=== PATIENT | male | born 1990 | race African-American/Black ===

== ENCOUNTER 2017-01-22 11:47 | Emergency (ER) | payer OTHER ==
[2017-01-22] MEDS ORDERED: OXYCODONE-ACETAMINOPHEN 5-325 MG TABLET PO ONE (12:03)
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
[2017-01-22 13:18] VITALS: BP 150/105
== END 2017-01-22 13:19 | disposition home or self-care (01) ==
LOC: ER 11:47
DX: S39.012A Strain of muscle, fascia and tendon of lower back, initial encounter (principal); V87.7XXA Person injured in collision between other specified motor vehicles (traffic), initial encounter; I10 Essential (primary) hypertension; F17.200 Nicotine dependence, unspecified, uncomplicated; E78.00 Pure hypercholesterolemia, unspecified; I11.0 Hypertensive heart disease with heart failure; J45.909 Unspecified asthma, uncomplicated
CPT/HCPCS: 72070; 72110; 99283

== ENCOUNTER 2017-04-09 17:39 | Emergency (ER) | payer OTHER ==
--- NOTE | 2017-04-09 18:11 | ER Document Report ---
ED Medical Screen (RME) - General Chief Complaint: Chest Pain Stated Complaint: CHEST PAIN Time Seen by Provider: 04/09/17 18:09 Notes: Patient has several months of intermittent brief chest pain that moves around his chest and back. He denies any family history of heart attack or blood clots. He states he does smoke but denies any drug or alcohol use other than marijuana. He states he has had no cough or congestion. Patient states he has been diagnosed with high blood pressure but just takes his grandmother's medicines. His grandmother's medicines are carvedilol and lisinopril. TRAVEL OUTSIDE OF THE [place] IN LAST 30 DAYS: No - Related Data Allergies/Adverse Reactions: No Known Allergies Allergy (Verified 04/09/17 17:53) Past Medical History - Past Medical History Cardiac Medical History: Reports: Hx Hypercholesterolemia, Hx Hypertension Pulmonary Medical History: Reports: Hx Asthma Renal/ Medical History: Denies: Hx Peritoneal Dialysis Psychiatric Medical History: Denies: Hx Depression Past Surgical History: Reports: Hx Adenoidectomy, Hx Orthopedic Surgery - right hand, Hx Tonsillectomy - T/A - Immunizations Hx Diphtheria, Pertussis, Tetanus Vaccination: Yes Physical Exam - Vital signs Vitals: Temp Pulse Resp BP Pulse Ox 98.5 F 102 H 18 172/95 H 96 04/09/17 17:51 04/09/17 17:51 04/09/17 17:51 04/09/17 17:51 04/09/17 17:51 Course - Vital Signs Vital signs: Temp Pulse Resp BP Pulse Ox 98.5 F 102 H 18 172/95 H 96 04/09/17 17:51 04/09/17 17:51 04/09/17 17:51 04/09/17 17:51 04/09/17 17:51
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
[2017-04-09 18:53] LABS: ABSOLUTE BASOPHILS # (AUTO) 0.1 10^3/uL (0.0-0.2); ABSOLUTE EOSINOPHILS # (AUTO) 0.1 10^3/uL (0.0-0.6); ABSOLUTE LYMPHOCYTES (AUTO) 2.3 10^3/uL (0.5-4.7); ABSOLUTE MONOCYTES (AUTO) 0.5 10^3/uL (0.1-1.4); ABSOLUTE NEUT (AUTO) 5.7 10^3/uL (1.7-8.2); EOSINOPHILS % (AUTO) 1.7 % (0-6); HEMATOCRIT 39.9 % (37.9-51.0); HEMOGLOBIN 13.2 g/dL (13.5-17.0); HGB HCT DIFFERENCE -0.3; LYMPHOCYTES % (AUTO) 26.6 % (13-45); MEAN CORPUSCULAR HEMOGLOBIN 29.1 pg (27.0-33.4); MEAN CORPUSCULAR HGB CONC 33.1 g/dL (32.0-36.0); MEAN CORPUSCULAR VOLUME 88 fl (80-97); MONOCYTES % (AUTO) 5.7 % (3-13); RED BLOOD COUNT 4.55 10^6/uL (4.35-5.55); RED CELL DISTRIBUTION WIDTH 12.7 % (11.5-14.0); WHITE BLOOD COUNT 8.8 10^3/uL (4.0-10.5)
[2017-04-09 19:15] LABS: ALANINE AMINOTRANSFERASE 49 U/L (21-72); ALKALINE PHOSPHATASE 79 U/L (38-126); ANION GAP 10 (5-19); ASPARTATE AMINO TRANSFERASE 33 U/L (17-59); BILIRUBIN,DIRECT 0.3 mg/dL (0.0-0.4); BILIRUBIN,TOTAL 0.4 mg/dL (0.2-1.3); BLOOD UREA NITROGEN 9 mg/dL (7-20); CALCIUM 9.6 mg/dL (8.4-10.2); CARBON DIOXIDE 27 mmol/L (22-30); CHLORIDE 104 mmol/L (98-107); CREATININE RESULT 0.79 mg/dL (0.52-1.25); GLUCOSE 205 mg/dL (75-110); POTASSIUM 3.9 mmol/L (3.6-5.0); SODIUM 140.5 mmol/L (137-145); TOTAL PROTEIN 6.4 g/dL (6.3-8.2)
--- NOTE | 2017-04-09 19:30 | ER Document Report ---
ED Cardiac - General Mode of Arrival: Ambulatory Information source: Patient TRAVEL OUTSIDE OF THE [place] IN LAST 30 DAYS: No <ADRIANNE WILSON - Last Filed: 04/09/17 21:10> <CELY CORTES - Last Filed: 04/09/17 22:31> - General Chief Complaint: Chest Pain Stated Complaint: CHEST PAIN Time Seen by Provider: 04/09/17 18:09 Notes: Patient is a morbidly obese 26-year-old male who presents to the emergency department today with complaints of chest pain. Patient states that he has had chest pain off and on for 1 year. Patient denies a cough or fevers. (ADRIANNE WILSON) - Related Data Allergies/Adverse Reactions: No Known Allergies Allergy (Verified 04/09/17 17:53) Past Medical History - General Information source: Patient - Social History Smoking Status: Current Every Day Smoker Cigarette use (# per day): Yes Chew tobacco use (# tins/day): No Frequency of alcohol use: None Drug Abuse: None Lives with: Family Family History: Reviewed & Not Pertinent - Past Medical History Cardiac Medical History: Reports: Hx Hypercholesterolemia, Hx Hypertension Pulmonary Medical History: Reports: Hx Asthma Past Surgical History: Reports: Hx Adenoidectomy, Hx Orthopedic Surgery - right hand, Hx Tonsillectomy - T/A - Immunizations Hx Diphtheria, Pertussis, Tetanus Vaccination: Yes Hx Pneumococcal Vaccination: 07/06/14 <ADRIANNE WILSON - Last Filed: 04/09/17 21:10> Review of Systems - Review of Systems Constitutional: denies: Fever EENT: No symptoms reported Cardiovascular: See HPI, Chest pain Respiratory: denies: Hurts to breathe Gastrointestinal: No symptoms reported Genitourinary: No symptoms reported Male Genitourinary: No symptoms reported Musculoskeletal: No symptoms reported Skin: No symptoms reported Hematologic/Lymphatic: No symptoms reported Neurological/Psychological: No symptoms reported -: Yes All other systems reviewed and negative <ADRIANNE WILSON - Last Filed: 04/09/17 21:10> Physical Exam - Vital signs Interpretation: Tachycardic - General General appearance: Appears well, Alert In distress: None - HEENT Head: Normocephalic, Atraumatic Eyes: Normal Pupils: PERRL - Respiratory Respiratory status: No respiratory distress Chest status: Nontender Breath sounds: Decreased air movement, Wheezing Chest palpation: Normal - Cardiovascular Rhythm: Regular Heart sounds: Normal auscultation Murmur: No - Abdominal Inspection: Normal Distension: No distension Bowel sounds: Normal Tenderness: Nontender Organomegaly: No organomegaly - Back Back: Normal, Nontender - Extremities General upper extremity: Normal inspection, Nontender, Normal color, Normal ROM , Normal temperature General lower extremity: Normal inspection, Nontender, Normal color, Normal ROM , Normal temperature, Normal weight bearing. No: Germán's sign - Neurological Neuro grossly intact: Yes Cognition: Normal Orientation: AAOx4 Frederick Coma Scale Eye Opening: Spontaneous Frederick Coma Scale Verbal: Oriented Kolby Coma Scale Motor: Obeys Commands Frederick Coma Scale Total: 15 Speech: Normal Motor strength normal: LUE, RUE, LLE, RLE Sensory: Normal - Psychological Associated symptoms: Normal affect, Normal mood - Skin Skin Temperature: Warm Skin Moisture: Dry Skin Color: Normal <CELY CORTES - Last Filed: 04/09/17 22:31> - Vital signs Vitals: Temp Pulse Resp BP Pulse Ox 98.5 F 102 H 18 172/95 H 96 04/09/17 17:51 04/09/17 17:51 04/09/17 17:51 04/09/17 17:51 04/09/17 17:51 Course - Laboratory Result Diagrams: 04/09/17 18:25 04/09/17 18:25 <ADRIANNE WILSON - Last Filed: 04/09/17 21:10> - Laboratory Result Diagrams: 04/09/17 18:25 04/09/17 18:25 - Diagnostic Test Radiology reviewed: Reports reviewed - EKG Interpretation by Hi EKG shows normal: Sinus rhythm Rate: Tachycardia <CELY CORTES - Last Filed: 04/09/17 22:31> - Re-evaluation Re-evalutation: 04/09/17 22:29 Patient is a 26-year-old morbidly obese male with a history of asthma who is a daily smoker. Patient presents with chest pain. Patient with wheezing on exam and pneumonia on chest x-ray. Patient has been given steroids, DuoNeb, and antibiotics here. It has been discussed at length with the patient that he is likely having recurrent pneumonia and episodes of chest tightness due to his underlying asthma which is exacerbated by smoking. Patient will be discharged home with prescription for nebulizer, steroids, antibiotics and is to follow-up with his doctor. Patient was ambulated in the emergency department and maintain his oxygen saturation at 96-98%. He is stable for discharge. Return immediately for any worsening or concerning symptoms. Understands and agrees with plan. (CELY CORTES) - Vital Signs Vital signs: Temp Pulse Resp BP Pulse Ox 98.5 F 86 20 189/88 H 96 04/09/17 17:51 04/09/17 21:43 04/09/17 21:43 04/09/17 21:43 04/09/17 21:43 - Laboratory Laboratory results interpreted by me: 04/09/17 04/09/17 18:25 18:25 Hgb 13.2 L Glucose 205 H Discharge <ADRIANNE WILSON - Last Filed: 04/09/17 21:10> <CELY CORTES - Last Filed: 04/09/17 22:31> - Discharge Clinical Impression: Asthma with acute exacerbation in adult Qualifiers: Asthma severity: unspecified severity Qualified Code(s): J45.901 - Unspecified asthma with (acute) exacerbation Pneumonia Qualifiers: Pneumonia type: due to unspecified organism Laterality: right Lung location: lower lobe of lung Qualified Code(s): J18.1 - Lobar pneumonia, unspecified organism Condition: Stable Disposition: HOME, SELF-CARE Instructions: Asthma ([facility]), Pneumonia ([facility]) Prescriptions: Albuterol Sulfate [Proair HFA Inhalation Aerosol 8.5 gm MDI] 2 puff IH Q4H PRN # 1 mdi PRN Reason: Ipratropium/Albuterol Sulfate [Duoneb 3 ml Ampul] 3 ml NEB RTQ4HP PRN #30 vial.neb PRN Reason: Levofloxacin [Levaquin 750 mg Tablet] 750 mg PO DAILY #5 tablet Lisinopril 5 mg PO DAILY #30 tablet Nebulizer [Nebulizer Machine] 1 each MC ASDIR PRN #1 kit PRN Reason: Prednisone 20 mg PO DAILY #4 tablet Forms: Smoking Cessation Education, Return to Work Scribe Attestation: 04/09/17 22:31 I personally performed the services described in the documentation, reviewed and edited the documentation which was dictated to the scribe in my presence, and it accurately records my words and actions. (CELY CORTES) Scribe Documentation - Scribe Written by Skye:: Skye Alston, [id number] acting as scribe for :: Elva <ADRIANNE WILSON - Last Filed: 04/09/17 21:10>
[2017-04-09] MEDS ORDERED: CEFTRIAXONE INJ 1000 MG VIAL IM ONE (19:49)
[2017-04-09] MEDS ORDERED: PREDNISONE 20 MG TABLET PO ONE (19:49)
[2017-04-09] MEDS ORDERED: LIDOCAINE 1% INJ-PF (10 MG/ML) 30 ML SDV INJ ONE (19:49)
[2017-04-09] MEDS ORDERED: IPRATROPIUM/ALBUTEROL 0.5-2.5 MG/3 ML AMPUL NEB ONE ×2 (19:49→21:07)
[2017-04-09] MEDS ORDERED: ALBUTEROL SULFATE HFA (90 MCG/PUFF) 200 PUFF/8.5 GM MDI IH ONE (21:33)
[2017-04-09 21:51] VITALS: BP 189/88
--- NOTE | 2017-04-09 22:39 | EKG REPORT ---
SEVERITY:- ABNORMAL ECG - SINUS TACHYCARDIA MULTIPLE ATRIAL PREMATURE COMPLEXES BORDERLINE T WAVE ABNORMALITIES : Confirmed by: Varsha Smith 09-Apr-2017 22:38:45
== END 2017-04-09 22:53 | disposition home or self-care (01) ==
LOC: ER 17:39
DX: J45.901 Unspecified asthma with (acute) exacerbation (principal); R07.9 Chest pain, unspecified; F17.210 Nicotine dependence, cigarettes, uncomplicated; R00.0 Tachycardia, unspecified; E66.01 Morbid (severe) obesity due to excess calories; I10 Essential (primary) hypertension; E78.00 Pure hypercholesterolemia, unspecified
CPT/HCPCS: 93005; 94640 ×2; 99285; 96372; 36415; 85025; 80053; 84484; 71020; 93010; J3490 ×2; J7512; J0696; J7620

== ENCOUNTER 2017-08-14 10:58 | Emergency (ER) | payer SELFPAY ==
--- NOTE | 2017-08-14 12:51 | ER Document Report ---
ED General - General Chief Complaint: Abdominal Cramping Stated Complaint: ABDOMINAL CRAMPING Time Seen by Provider: 08/14/17 12:37 Mode of Arrival: Ambulatory Information source: Patient Notes: Patient presents complaining of increased urinary frequency, increased thirst patient reports intermittent abdominal cramping for the past week. Patient denies any fever.Generally not feeling well for the past 2 weeks. Patient denies any nausea, vomiting or diarrhea. Patient denies any history of diabetes. Patient does report a history of hypertension but states he has been off of his medications for some time but has been taking his grandmother's carvedilol off and on to treat his blood pressure. TRAVEL OUTSIDE OF THE [place] IN LAST 30 DAYS: No - HPI Onset: Other - 2 weeks Onset/Duration: Persistent Quality of pain: Cramping Pain Level: 2 Associated symptoms: denies: Chest pain, Nonproductive cough, Productive cough, Fever, Nausea, Vomiting Exacerbated by: Denies Relieved by: Denies Similar symptoms previously: No Recently seen / treated by doctor: No - Related Data Allergies/Adverse Reactions: No Known Allergies Allergy (Verified 08/14/17 13:34) Past Medical History - General Information source: Patient, Relative - Social History Smoking Status: Current Every Day Smoker Smoking Education Provided: Yes Frequency of alcohol use: Occasional Drug Abuse: None Occupation: None Lives with: Family Family History: Reviewed & Not Pertinent - Past Medical History Cardiac Medical History: Reports: Hx Hypercholesterolemia, Hx Hypertension Pulmonary Medical History: Reports: Hx Asthma Renal/ Medical History: Denies: Hx Peritoneal Dialysis Psychiatric Medical History: Denies: Hx Depression Past Surgical History: Reports: Hx Adenoidectomy, Hx Orthopedic Surgery - right hand, Hx Tonsillectomy - T/A - Immunizations Hx Diphtheria, Pertussis, Tetanus Vaccination: Yes Hx Pneumococcal Vaccination: 07/06/14 Review of Systems - Review of Systems Constitutional: No symptoms reported. denies: Fever, Recent illness EENT: No symptoms reported Cardiovascular: No symptoms reported. denies: Chest pain Respiratory: No symptoms reported. denies: Cough, Short of breath Gastrointestinal: Abdominal pain. denies: Diarrhea, Nausea, Vomiting, Constipation Genitourinary: No symptoms reported Male Genitourinary: No symptoms reported Musculoskeletal: No symptoms reported. denies: Back pain Skin: No symptoms reported Hematologic/Lymphatic: No symptoms reported Neurological/Psychological: No symptoms reported Physical Exam - Vital signs Vitals: Temp Pulse Resp BP Pulse Ox 98.5 F 102 H 18 170/102 H 97 08/14/17 11:06 08/14/17 11:06 08/14/17 11:06 08/14/17 11:06 08/14/17 11:06 - General General appearance: Appears well, Alert In distress: None - HEENT Head: Normocephalic, Atraumatic Eyes: Normal Conjunctiva: Normal Nasal: Normal Mouth/Lips: Normal Mucous membranes: Normal Neck: Normal, Supple - Respiratory Respiratory status: No respiratory distress Chest status: Pain on movement Breath sounds: Wheezing - faint scattered - Cardiovascular Rhythm: Regular Heart sounds: S1 appreciated, S2 appreciated - Abdominal Inspection: Morbidly Obese Distension: No distension Bowel sounds: Normal Tenderness: Tender - RUQ, epig - Back Back: Normal, Nontender. No: CVA tenderness - Extremities General upper extremity: Normal inspection, Normal ROM General lower extremity: Normal inspection, Normal ROM - Neurological Neuro grossly intact: Yes Cognition: Normal [place] Coma Scale Eye Opening: Spontaneous [place] Coma Scale Verbal: Oriented [place] Coma Scale Motor: Obeys Commands [place] Coma Scale Total: 15 - Psychological Associated symptoms: Normal affect, Normal mood - Skin Skin Temperature: Warm Skin Moisture: Dry Skin Color: Normal Course - Re-evaluation Re-evalutation: 08/14/17 14:[address] Vazquez, Dr. Vazquez advises discharging patient home on glyburide 5 mg daily, lisinopril 40 mg daily, and metformin 1000 mg twice a day. Recommends outpatient follow-up with the primary care provider. Consult placed with discharge planning discussed with patient and family at length plan of care. Discussed importance of lifestyle and diet modifications. Discussed things that patient could do to help lose weight as well as maintain a diabetic diet. Patient and family verbalized understanding and agree with plan of care. Patient without any findings concerning for ketoacidosis or hyperosmolar state at this time. Patient with normal neurologic functioning. 08/14/17 16:44 Smoking cessation handout provided to patient - Vital Signs Vital signs: Temp Pulse Resp BP Pulse Ox 98.2 F 100 18 143/81 H 94 08/14/17 17:37 08/14/17 17:37 08/14/17 17:37 08/14/17 17:37 08/14/17 17:37 - Laboratory Result Diagrams: 08/14/17 13:25 08/14/17 13:25 Laboratory results interpreted by me: 08/14/17 08/14/17 08/14/17 13:16 13:25 13:25 Sodium 133.6 L Chloride 93 L Glucose 619 H* POC Glucose Hemoglobin A1c % 12.7 H Alkaline Phosphatase 163 H Urine Glucose (UA) >=500 H Urine Ketones TRACE H 08/14/17 17:28 Sodium Chloride Glucose POC Glucose 350 H Hemoglobin A1c % Alkaline Phosphatase Urine Glucose (UA) Urine Ketones Labs- Entire Visit 08/14/17 08/14/17 08/14/17 13:16 13:25 13:25 WBC 5.8 RBC 5.13 Hgb 14.9 Hct 43.9 MCV 86 MCH 29.0 MCHC 33.9 RDW 12.6 Plt Count 250 Seg Neutrophils % 52.2 Lymphocytes % 38.1 Monocytes % 7.5 Eosinophils % 1.4 Basophils % 0.8 Absolute Neutrophils 3.0 Absolute Lymphocytes 2.2 Absolute Monocytes 0.4 Absolute Eosinophils 0.1 Absolute Basophils 0.0 Sodium 133.6 L Potassium 4.8 Chloride 93 L Carbon Dioxide 28 Anion Gap 13 BUN 11 Creatinine 0.98 Est GFR ( Amer) > 60 Est GFR (Non-Af Amer) > 60 Glucose 619 H* POC Glucose Hemoglobin A1c % Calcium 10.1 Total Bilirubin 0.7 Direct Bilirubin 0.3 Neonat Total Bilirubin Not Reportable Neonat Direct Bilirubin Not Reportable Neonat Indirect Bili Not Reportable AST 23 ALT 43 Alkaline Phosphatase 163 H Total Protein 6.8 Albumin 4.4 Lipase 127.8 Urine Color STRAW Urine Appearance CLEAR Urine pH 6.0 Ur Specific [place] 1.033 Urine Protein NEGATIVE Urine Glucose (UA) >=500 H Urine Ketones TRACE H Urine Blood NEGATIVE Urine Nitrite NEGATIVE Urine Bilirubin NEGATIVE Urine Urobilinogen NEGATIVE Ur Leukocyte Esterase NEGATIVE Urine WBC (Auto) 0 Urine Mucus (Auto) RARE Urine Ascorbic Acid NEGATIVE 08/14/17 08/14/17 13:25 17:28 WBC RBC Hgb Hct MCV MCH MCHC RDW Plt Count Seg Neutrophils % Lymphocytes % Monocytes % Eosinophils % Basophils % Absolute Neutrophils Absolute Lymphocytes Absolute Monocytes Absolute Eosinophils Absolute Basophils Sodium Potassium Chloride Carbon Dioxide Anion Gap BUN Creatinine Est GFR ( Amer) Est GFR (Non-Af Amer) Glucose POC Glucose 350 H Hemoglobin A1c % 12.7 H Calcium Total Bilirubin Direct Bilirubin Neonat Total Bilirubin Neonat Direct Bilirubin Neonat Indirect Bili AST ALT Alkaline Phosphatase Total Protein Albumin Lipase Urine Color Urine Appearance Urine pH Ur Specific [place] Urine Protein Urine Glucose (UA) Urine Ketones Urine Blood Urine Nitrite Urine Bilirubin Urine Urobilinogen Ur Leukocyte Esterase Urine WBC (Auto) Urine Mucus (Auto) Urine Ascorbic Acid - Diagnostic Test Radiology reviewed: Reports reviewed Discharge - Discharge Clinical Impression: Diabetes Qualifiers: Diabetes mellitus type: type 2 Diabetes mellitus complication status: with hyperglycemia Diabetes mellitus halfway insulin use: without halfway use Qualified Code(s): E11.65 - Type 2 diabetes mellitus with hyperglycemia Hypertension Qualifiers: Hypertension type: unspecified Qualified Code(s): I10 - Essential (primary) hypertension Abdominal pain Qualifiers: Abdominal location: upper abdomen, unspecified Qualified Code(s): R10.10 - Upper abdominal pain, unspecified Condition: Stable Disposition: HOME, SELF-CARE Instructions: Abdominal Pain ([facility]), Diabetes ([facility]), High Blood Pressure, Requiring Treatment ([facility]) Additional Instructions: Return immediately for any new or worsening symptoms Followup with your primary care provider, call tomorrow to make a followup appointment [facility]-up with the [facility], call for a follow-up appointment. Monitor your blood sugar twice a day and keep a record of your blood sugar readings. Maintain a diabetic diet, limit sugars, sweets and carbs Increase oral fluids and stay well-hydrated at home. Prescriptions: Blood-Glucose Meter, Drum-Type [Accu-Chek] 1 kit MC ASDIR PRN #1 kit PRN Reason: Glyburide 5 mg PO DAILY #30 tablet Lisinopril 40 mg PO DAILY #30 tablet Metformin HCl [Glucophage 500 mg Tablet] 500 mg PO BID #49 tablet Forms: Smoking Cessation Education, Elevated Blood Pressure Referrals: [facility] [Provider Group] - Follow up tomorrow [facility] [Provider Group] - Follow up tomorrow
[2017-08-14 13:41] LABS: ABSOLUTE EOSINOPHILS # (AUTO) 0.1 10^3/uL (0.0-0.6); ABSOLUTE LYMPHOCYTES (AUTO) 2.2 10^3/uL (0.5-4.7); ABSOLUTE MONOCYTES (AUTO) 0.4 10^3/uL (0.1-1.4); BASOPHILS % (AUTO) 0.8 % (0-2); EOSINOPHILS % (AUTO) 1.4 % (0-6); HEMATOCRIT 43.9 % (37.9-51.0); HEMOGLOBIN 14.9 g/dL (13.5-17.0); LYMPHOCYTES % (AUTO) 38.1 % (13-45); MEAN CORPUSCULAR HGB CONC 33.9 g/dL (32.0-36.0); MEAN CORPUSCULAR VOLUME 86 fl (80-97); MONOCYTES % (AUTO) 7.5 % (3-13); PLATELET COUNT 250 10^3/uL (150-450); RED BLOOD COUNT 5.13 10^6/uL (4.35-5.55); RED CELL DISTRIBUTION WIDTH 12.6 % (11.5-14.0); SEGMENTED NEUTROPHILS % (AUTO) 52.2 % (42-78); TOTAL CELLS COUNTED % (AUTO) 100 %; WHITE BLOOD COUNT 5.8 10^3/uL (4.0-10.5)
[2017-08-14 13:46] LABS: APPEARANCE,URINE CLEAR; BILIRUBIN,URINE NEGATIVE (NEGATIVE); COLOR,URINE STRAW; GLUCOSE, URINE >=500 mg/dL (NEGATIVE); KETONES,URINE TRACE mg/dL (NEGATIVE); LEUKOCYTE ESTERASE,URINE NEGATIVE (NEGATIVE); NITRITE,URINE NEGATIVE (NEGATIVE); PROTEIN,URINE NEGATIVE (NEGATIVE); URINE SPECIFIC GRAVITY 1.033; UROBILINOGEN,URINE NEGATIVE mg/dL (<2.0)
[2017-08-14] MEDS ORDERED: NORMAL SALINE 1000 ML 1,000 ML IV ONE ×2 (14:01→14:16)
[2017-08-14 14:05] LABS: ALANINE AMINOTRANSFERASE 43 U/L (21-72); ALBUMIN 4.4 g/dL (3.5-5.0); ALKALINE PHOSPHATASE 163 U/L (38-126); ANION GAP 13 (5-19); ASPARTATE AMINO TRANSFERASE 23 U/L (17-59); BILIRUBIN,DIRECT 0.3 mg/dL (0.0-0.4); BILIRUBIN,TOTAL 0.7 mg/dL (0.2-1.3); BLOOD UREA NITROGEN 11 mg/dL (7-20); CALCIUM 10.1 mg/dL (8.4-10.2); CARBON DIOXIDE 28 mmol/L (22-30); CHLORIDE 93 mmol/L (98-107); LIPASE 127.8 U/L (23-300); POTASSIUM 4.8 mmol/L (3.6-5.0); SODIUM 133.6 mmol/L (137-145); TOTAL PROTEIN 6.8 g/dL (6.3-8.2)
[2017-08-14 14:20] LABS: GLUCOSE 619 mg/dL (75-110)
--- NOTE | 2017-08-14 14:23 | RADIOLOGY REPORT (SQ) ---
EXAM DESCRIPTION: U/S ABDOMEN LIMITED W/O DOP COMPLETED DATE/TIME: 08/14/2017 2:14 pm REASON FOR STUDY: epig, RUQ pain COMPARISON: None. TECHNIQUE: Dynamic and static grayscale images acquired of the abdomen and recorded on PACS. Additio nal selected color Doppler and spectral images recorded. LIMITATIONS: None. FINDINGS: PANCREAS: Not visualized. LIVER: Mildly enlarged fatty liver measuring 19 cm. No masses. LIVER VASCULATURE: Normal directional flow of the main portal vein and hepatic veins. GALLBLADDER: No stones. Normal wall thickness. No pericholecystic fluid. ULTRASOUND-DETECTED CIFUENTES'S SIGN: Negative. INTRAHEPATIC DUCTS AND COMMON DUCT: CBD and intrahepatic ducts normal caliber. No filling defects. INFERIOR VENA CAVA: Normal flow. AORTA: No aneurysm. RIGHT KIDNEY: Normal size. Normal echogenicity. No solid or suspicious masses. No hydronephrosis. No calcifications. PERITONEAL AND RIGHT PLEURAL SPACE: No ascites or effusions. OTHER: No other significant findings. IMPRESSION: 1. Normal-appearing gallbladder. 2. Mildly enlarged fatty liver. TECHNICAL DOCUMENTATION: JOB ID: [id number]- All Rights Reserved
[2017-08-14] MEDS ORDERED: LISINOPRIL 10 MG TABLET PO ONE (14:54)
[2017-08-14] MEDS ORDERED: INSULIN REG, HUMAN 100 UNIT/ML 3 ML VIAL (PYX) SUBCUT ONE (14:55)
[2017-08-14 17:47] VITALS: BP 143/81
== END 2017-08-14 17:44 | disposition home or self-care (01) ==
LOC: ER 10:58
DX: E11.65 Type 2 diabetes mellitus with hyperglycemia (principal); I10 Essential (primary) hypertension; R10.10 Upper abdominal pain, unspecified; R35.0 Frequency of micturition; F17.200 Nicotine dependence, unspecified, uncomplicated
CPT/HCPCS: 99284; 96360; 96361; 36415; 82962; 83690; 85025; 80053; 81001; 83036; 76705; J1815; J7030

== ENCOUNTER 2017-08-19 09:59 | Inpatient (IN) | payer SELFPAY ==
--- NOTE | 2017-08-19 11:03 | ER Document Report ---
ED Medical Screen (RME) - General Chief Complaint: Nausea Stated Complaint: NAUSEA Time Seen by Provider: 08/19/17 11:02 Notes: Patiently read recently diagnosed with diabetes and is taking metformin. He states he is chronically nauseous and is having trouble eating. He also states he feels weak. He also states that he has a lesion on his penis and on his testicles. TRAVEL OUTSIDE OF THE [place] IN LAST 30 DAYS: No - Related Data Allergies/Adverse Reactions: No Known Allergies Allergy (Verified 08/19/17 10:04) Past Medical History - Social History Frequency of alcohol use: Rare Drug Abuse: None - Past Medical History Cardiac Medical History: Reports: Hx Hypercholesterolemia, Hx Hypertension Pulmonary Medical History: Reports: Hx Asthma Renal/ Medical History: Denies: Hx Peritoneal Dialysis Psychiatric Medical History: Denies: Hx Depression Past Surgical History: Reports: Hx Adenoidectomy, Hx Orthopedic Surgery - right hand, Hx Tonsillectomy - T/A - Immunizations Hx Diphtheria, Pertussis, Tetanus Vaccination: Yes Physical Exam - Vital signs Vitals: Temp Pulse Resp BP Pulse Ox 98.4 F 93 18 154/89 H 98 08/19/17 10:08/19/17 10:08/19/17 10:08/19/17 10:08/19/17 10:21 Course - Vital Signs Vital signs: Temp Pulse Resp BP Pulse Ox 98.4 F 93 18 154/89 H 98 08/19/17 10:08/19/17 10:08/19/17 10:08/19/17 10:08/19/17 10:21
[2017-08-19 12:07] LABS: ABSOLUTE BASOPHILS # (AUTO) 0.1 10^3/uL (0.0-0.2); ABSOLUTE EOSINOPHILS # (AUTO) 0.1 10^3/uL (0.0-0.6); ABSOLUTE LYMPHOCYTES (AUTO) 2.1 10^3/uL (0.5-4.7); ABSOLUTE MONOCYTES (AUTO) 0.6 10^3/uL (0.1-1.4); ABSOLUTE NEUT (AUTO) 4.1 10^3/uL (1.7-8.2); APPEARANCE,URINE CLEAR; BASOPHILS % (AUTO) 1.5 % (0-2); BILIRUBIN,URINE NEGATIVE (NEGATIVE); COLOR,URINE STRAW; EOSINOPHILS % (AUTO) 0.9 % (0-6); GLUCOSE, URINE >=500 mg/dL (NEGATIVE); HEMATOCRIT 46.4 % (37.9-51.0); HEMOGLOBIN 15.7 g/dL (13.5-17.0); KETONES,URINE 80 mg/dL (NEGATIVE); LEUKOCYTE ESTERASE,URINE NEGATIVE (NEGATIVE); LYMPHOCYTES % (AUTO) 30.2 % (13-45); MEAN CORPUSCULAR HEMOGLOBIN 28.8 pg (27.0-33.4); MEAN CORPUSCULAR HGB CONC 33.8 g/dL (32.0-36.0); MEAN CORPUSCULAR VOLUME 85 fl (80-97); MONOCYTES % (AUTO) 8.5 % (3-13); NITRITE,URINE NEGATIVE (NEGATIVE); PLATELET COUNT 255 10^3/uL (150-450); PROTEIN,URINE 30 mg/dL (NEGATIVE); RED BLOOD COUNT 5.45 10^6/uL (4.35-5.55); RED CELL DISTRIBUTION WIDTH 12.6 % (11.5-14.0); SEGMENTED NEUTROPHILS % (AUTO) 58.9 % (42-78); TOTAL CELLS COUNTED % (AUTO) 100 %; URINE SPECIFIC GRAVITY 1.028; UROBILINOGEN,URINE NEGATIVE mg/dL (<2.0)
[2017-08-19 12:21] LABS: ALANINE AMINOTRANSFERASE 42 U/L (21-72); ALBUMIN 4.7 g/dL (3.5-5.0); ALKALINE PHOSPHATASE 127 U/L (38-126); ANION GAP 17 (5-19); ASPARTATE AMINO TRANSFERASE 28 U/L (17-59); BILIRUBIN,DIRECT 0.3 mg/dL (0.0-0.4); BILIRUBIN,TOTAL 0.5 mg/dL (0.2-1.3); BLOOD UREA NITROGEN 8 mg/dL (7-20); CALCIUM 10.4 mg/dL (8.4-10.2); CARBON DIOXIDE 16 mmol/L (22-30); CHLORIDE 102 mmol/L (98-107); POTASSIUM 5.2 mmol/L (3.6-5.0); SODIUM 135.4 mmol/L (137-145); TOTAL PROTEIN 7.2 g/dL (6.3-8.2)
[2017-08-19 12:30] LABS: GLUCOSE 408 mg/dL (75-110)
[2017-08-19] MEDS ORDERED: INSULIN REG, HUMAN 100 UNIT/ML 3 ML VIAL (PYX) SUBCUT ONE (12:32)
[2017-08-19] MEDS ORDERED: NYSTATIN/DEXAMETH/DIPHEN SUSP 120 ML PO ONE (12:33)
[2017-08-19] MEDS ORDERED: CLOTRIMAZOLE 1% CREAM 15 GM TP ONE (12:33)
[2017-08-19] MEDS ORDERED: ALBUTEROL SULFATE 0.083% NEB 2.5 MG/3 ML AMPUL NEB ONE ×2 (12:35→14:30)
[2017-08-19] MEDS ORDERED: NORMAL SALINE 1000 ML 1,000 ML IV ONE ×2 (12:35→16:00)
--- NOTE | 2017-08-19 12:39 | ER Document Report ---
ED GI/ - General Chief Complaint: Nausea Stated Complaint: NAUSEA Time Seen by Provider: 08/19/17 11:02 Mode of Arrival: Ambulatory Information source: Patient Notes: Patient is a 26-year-old as male who presents to the ER today for lightheadedness, nausea, vomiting, yeast infection to his penis and his tongue, patient was diagnosed with type 2 diabetes about 3 weeks ago here in the emergency department, sent home on metformin 1000 mg twice daily. Patient states he has been taking that. He states he checked his blood sugar last night and it was over 300. Patient complains of abdominal cramping for approximately 3 weeks as well. Patient denies any diarrhea. He denies any fevers or chills that he knows of. TRAVEL OUTSIDE OF THE [place] IN LAST 30 DAYS: No - Related Data Allergies/Adverse Reactions: No Known Allergies Allergy (Verified 08/19/17 10:04) Past Medical History - General Information source: Patient - Social History Smoking Status: Former Smoker Frequency of alcohol use: Rare Drug Abuse: None Family History: Reviewed & Not Pertinent Patient has suicidal ideation: No Patient has homicidal ideation: No - Past Medical History Cardiac Medical History: Reports: Hx Hypercholesterolemia, Hx Hypertension Pulmonary Medical History: Reports: Hx Asthma Renal/ Medical History: Denies: Hx Peritoneal Dialysis Psychiatric Medical History: Denies: Hx Depression Past Surgical History: Reports: Hx Adenoidectomy, Hx Orthopedic Surgery - right hand, Hx Tonsillectomy - T/A - Immunizations Hx Diphtheria, Pertussis, Tetanus Vaccination: Yes Hx Pneumococcal Vaccination: 07/06/14 Review of Systems - Review of Systems Constitutional: No symptoms reported EENT: No symptoms reported Cardiovascular: No symptoms reported Respiratory: No symptoms reported Gastrointestinal: See HPI Genitourinary: No symptoms reported Male Genitourinary: No symptoms reported Musculoskeletal: No symptoms reported Skin: No symptoms reported Hematologic/Lymphatic: No symptoms reported Neurological/Psychological: See HPI Physical Exam - Vital signs Vitals: Temp Pulse Resp BP Pulse Ox 98.4 F 93 18 154/89 H 98 08/19/17 10:21 08/19/17 10:21 08/19/17 10:21 08/19/17 10:21 08/19/17 10:21 - Notes Notes: PHYSICAL EXAMINATION: GENERAL: Mildly ill-appearing, but in no acute distress. HEAD: Atraumatic, normocephalic. EYES: Pupils equal round and reactive to light, extraocular movements intact, sclera anicteric, conjunctiva are normal. ENT: yellow/white layer on tongue NECK: Normal range of motion, supple without lymphadenopathy LUNGS: CTAB and equal. No wheezes rales or rhonchi. HEART: Regular rate and rhythm without murmurs ABDOMEN: Soft, no tenderness. No guarding, no rebound BACK: no vertebral tenderness, normal ROM GI/: no CVA tenderness : penis with yellow/white discharge on skin of glans penis EXTREMITIES: Normal range of motion, no pitting edema. No cyanosis. NEUROLOGICAL: Cranial nerves grossly intact. Normal sensory/motor exams. PSYCH: Normal mood, normal affect. SKIN: Warm, Dry, normal turgor, no rashes or lesions noted Course - Re-evaluation Re-evalutation: 08/19/17 18:07 Original glucose 408, anion gap normal but bicarb 16, pH on venous blood gas is 7.19. Patient started on IV fluids, given IM dose of insulin when he first arrived an IV dose of insulin after venous blood gas returned. Patient has not vomited here. Patient is in no distress. Dr. Hough, hospitalist agrees to admit patient at this time for DKA. - Vital Signs Vital signs: Temp Pulse Resp BP Pulse Ox 99.0 F 105 H 18 147/94 H 98 08/19/17 18:00 08/19/17 18:00 08/19/17 18:00 08/19/17 18:00 08/19/17 18:00 - Laboratory Result Diagrams: 08/19/17 11:50 08/19/17 11:50 Laboratory results interpreted by me: 08/19/17 08/19/17 08/19/17 11:50 11:50 13:47 VBG pH VBG HCO3 Sodium 135.4 L Potassium 5.2 H Carbon Dioxide 16 L Glucose 408 H* POC Glucose 374 H Calcium 10.4 H Alkaline Phosphatase 127 H Urine Protein 30 H Urine Glucose (UA) >=500 H Urine Ketones 80 H Urine Blood SMALL H 08/19/17 08/19/17 15:30 16:04 VBG pH 7.19 L* VBG HCO3 16.5 L Sodium Potassium Carbon Dioxide Glucose POC Glucose 358 H Calcium Alkaline Phosphatase Urine Protein Urine Glucose (UA) Urine Ketones Urine Blood Discharge - Discharge Clinical Impression: DKA (diabetic ketoacidoses) Qualifiers: Diabetes mellitus type: type 2 Diabetes mellitus complication detail: without coma Qualified Code(s): E11.10 - Type 2 diabetes mellitus with ketoacidosis without coma Condition: Stable Disposition: ADMITTED INPATIENT Admitting Provider: Hospitalist - Dr. Hough Unit Admitted: [facility]
[2017-08-19 15:54] LABS: VENOUS BLOOD BASE EXCESS -11.4 mmol/L; VENOUS BLOOD HCO3 16.5 mmol/L (20-32); VENOUS BLOOD PCO2 44.2 mmHg (35-63)
[2017-08-19 15:56] LABS: VENOUS BLOOD PH 7.19 (7.30-7.42)
[2017-08-19] MEDS ORDERED: INSULIN REG, HUMAN 100 UNIT/ML 3 ML VIAL (PYX) IV ONE (16:14)
[2017-08-19] MEDS ORDERED: OXYCODONE-ACETAMINOPHEN 5-325 MG TABLET PO ONE (16:37)
[2017-08-19 17:52] LABS: CHLAM PCR NOT DETECTED (NOT DETECT); GON PCR NOT DETECTED (NOT DETECT)
[2017-08-19] MEDS ORDERED: ONDANSETRON HCL INJ/PF 4 MG/2 ML SDV IV PRN (17:56)
[2017-08-19] MEDS ORDERED: ONDANSETRON 4 MG TAB.RAPDIS PO PRN (17:56)
[2017-08-19] MEDS ORDERED: NORMAL SALINE 1000 ML 1,000 ML IV PRN (17:56)
[2017-08-19] MEDS ORDERED: ACETAMINOPHEN 325 MG TABLET PO PRN (17:56)
[2017-08-19] MEDS ORDERED: ALBUTEROL SULFATE 0.083% NEB 2.5 MG/3 ML AMPUL NEB PRN (17:56)
[2017-08-19] MEDS ORDERED: DEXTROSE 40% GEL 15 GM TUBE PO PRN ×4 (18:06→21:29)
[2017-08-19] MEDS ORDERED: GLUCAGON,HUMAN RECOMB 1 MG INJ IM PRN ×2 (18:06→21:29)
[2017-08-19] MEDS ORDERED: DEXTROSE 50%-WATER 25 GM/50 ML DISP.SYRIN IV PRN ×4 (18:06→21:29)
--- NOTE | 2017-08-19 18:22 | PDOC H&P ---
History of Present Illness Admission Date/PCP: 08/19/17 17:31 Patient complains of: Nausea and vomiting History of Present Illness: KIRK CHARLES is a 26 year old male who was seen in the emergency room on 10 February and diagnosed as a new onset diabetic. He was put on Glucophage and sent home. He reports now with a 3 day history of nausea, vomiting and crampy abdominal pain. Patient also has had polyuria, polydipsia and polyphagia. He also relates that he has had a 50 pound weight loss over the last year. He is morbidly obese reports he has had difficulty eating over the last several weeks. He is found to have elevated blood sugars and is acidotic with a pH of 7.19 on a venous blood gas. The patient however does not have an anion gap. Is not entirely clear to me given his history whether this is a type I or type II diabetic. He does not have obvious ketoacidosis as he does not have an anion gap. This may be early hyperosmolar nonketotic hyperglycemia. Patient also has complaints of difficulty with his vision being blurred and also with a cutaneous yeast infection of his scrotum and penis. Past Medical History Cardiac Medical History: Reports: Hyperlipidema, Hypertension Pulmonary Medical History: Reports: Asthma EENT Medical History: Reports: None Neurological Medical History: Reports: None Endocrine Medical History: Reports: Diabetes Mellitus Type 2 Renal/ Medical History: Reports: None Malignancy Medical History: Reports: None GI Medical History: Reports: None Musculoskeltal Medical History: Reports: None Psychiatric Medical History: Denies: Depression Traumatic Medical History: Reports: None Hematology: Reports: None Infectious Medical History: Reports: None Past Surgical History Past Surgical History: Reports: Orthopedic Surgery - right hand, Tonsillectomy - T/A Social History Information Source: Patient Lives with: Family Smoking Status: Former Smoker Frequency of Alcohol Use: Rare Hx Recreational Drug Use: No Drugs: Marijuana Hx Prescription Drug Abuse: No - Advance Directive Resuscitation Status: Full Code Family History Family History: Father is 60 and alive. His health history is unknown. Mother is 45 alive and has chronic sciatica. Parental Family History Reviewed: Yes Children Family History Reviewed: No Sibling(s) Family History Reviewed.: No Medication/Allergy Home Medications: Albuterol Sulfate [Proair HFA] 1 - 2 puff IH Q4 PRN #1 inhaler 08/01/15 Prednisone [Deltasone 20 mg Tablet] 40 mg PO DAILY #7 tablet 08/01/15 Albuterol Sulfate 2.5 mg IH Q6H PRN #30 ml 08/02/15 Albuterol Sulfate [Ventolin HFA MDI 18 GM] 1 - 2 puff IH Q4H PRN #1 mdi Ciprofloxacin HCl [Cipro 500 mg Tablet] 500 mg PO BID #20 tablet 08/02/15 Ipratropium [place] [Atrovent 0.02% Neb 0.5 mg/2.5 ml Ampul] 0.5 mg NEB RTQ4HP PRN #30 vial.neb 08/02/15 Lisinopril [Prinivil 40 mg Tablet] 40 mg PO DAILY #30 tablet 08/02/15 Ibuprofen [Motrin 800 mg Tablet] 800 mg PO Q8HP PRN #30 tab 10/26/15 Cyclobenzaprine HCl [Flexeril 10 Mg Tablet] 10 mg PO TID #15 tablet 01/22/17 Oxycodone HCl/Acetaminophen [Percocet 5-325 mg Tablet] 1 tab PO ASDIR PRN #15 tablet 01/22/17 Albuterol Sulfate [Proair HFA Inhalation Aerosol 8.5 gm MDI] 2 puff IH Q4H PRN # 1 mdi 04/09/17 Ipratropium/Albuterol Sulfate [Duoneb 3 ml Ampul] 3 ml NEB RTQ4HP PRN #30 vial.[facility] 04/09/17 Levofloxacin [Levaquin 750 mg Tablet] 750 mg PO DAILY #5 tablet 04/09/17 Lisinopril 5 mg PO DAILY #30 tablet 04/09/17 Nebulizer [Nebulizer Machine] 1 each ASDIR PRN #1 kit 04/09/17 Prednisone 20 mg PO DAILY #4 tablet 04/09/17 Blood-Glucose Meter, Drum-Type [Accu-Chek] 1 kit ASDIR PRN #1 kit 08/14/17 Glyburide 5 mg PO DAILY #30 tablet 08/14/17 Lisinopril 40 mg PO DAILY #30 tablet 08/14/17 Metformin HCl [Glucophage 500 mg Tablet] 500 mg PO BID #49 tablet 08/14/17 Allergies/Adverse Reactions: No Known Allergies Allergy (Verified 08/19/17 10:04) Review of Systems Constitutional: PRESENT: fatigue, weight loss - 50 pounds unintentional. ABSENT : chills, fever(s), headache(s) Eyes: PRESENT: visual disturbances Ears: ABSENT: hearing changes Cardiovascular: ABSENT: chest pain, dyspnea on exertion, edema, orthropnea, palpitations Respiratory: ABSENT: cough, hemoptysis Gastrointestinal: PRESENT: abdominal pain, nausea, vomiting. ABSENT: constipation, diarrhea, hematemesis, hematochezia, melena Genitourinary: PRESENT: other - Polyuria Musculoskeletal: ABSENT: joint swelling Integumentary: PRESENT: rash - White rash on his scrotum and penis.. ABSENT: wounds Neurological: ABSENT: abnormal gait, abnormal speech, confusion, dizziness, focal weakness, syncope Psychiatric: ABSENT: anxiety, depression Endocrine: ABSENT: cold intolerance, heat intolerance, polydipsia, polyuria Hematologic/Lymphatic: ABSENT: easy bleeding, easy bruising Physical Exam Vital Signs: Temp Pulse Resp BP Pulse Ox 99.0 F 105 H 18 147/94 H 98 08/19/17 18:00 08/19/17 18:00 08/19/17 18:00 08/19/17 18:00 08/19/17 18:00 General appearance: PRESENT: no acute distress, morbidly obese Head exam: PRESENT: atraumatic, normocephalic Eye exam: PRESENT: conjunctiva pink, EOMI, PERRLA. ABSENT: scleral icterus Ear exam: PRESENT: normal external ear exam Mouth exam: PRESENT: moist, tongue midline Neck exam: ABSENT: carotid bruit, JVD, lymphadenopathy, thyromegaly Respiratory exam: PRESENT: clear to auscultation clarisa. ABSENT: rales, rhonchi, wheezes Cardiovascular exam: PRESENT: bradycardia Pulses: PRESENT: normal dorsalis pedis pul Vascular exam: PRESENT: normal capillary refill GI/Abdominal exam: PRESENT: normal bowel sounds, soft. ABSENT: distended, guarding, mass, organolmegaly, rebound, tenderness Rectal exam: PRESENT: deferred Gentrourinary exam: PRESENT: scrotal swelling - Small nodule in the scrotum Extremities exam: ABSENT: calf tenderness, clubbing, pedal edema Neurological exam: PRESENT: alert, awake, oriented to person, oriented to place , oriented to time, oriented to situation, CN II-XII grossly intact. ABSENT: motor sensory deficit Psychiatric exam: PRESENT: appropriate affect Skin exam: PRESENT: dry, intact, rash - White rash on scrotum and penis, warm. ABSENT: cyanosis Assessment & Plan - Diagnosis (1) DKA (diabetic ketoacidoses) Qualifiers: Diabetes mellitus type: type 2 Diabetes mellitus complication detail: without coma Qualified Code(s): E11.10 - Type 2 diabetes mellitus with ketoacidosis without coma Is this a current diagnosis for this admission?: Yes Plan: The patient does not have an anion gap so his acidosis most likely is not from diabetic ketoacidosis. He does however have polyuria, polydipsia, 50 pound weight gain all suggestive of type 1 diabetes. Is not clear whether he is type I or type II diabetic. He may have hyperosmolar hyper glycemic nonketotic syndrome. We will send off insulin and C-peptide levels to help us determine which type he has. Given his 50 pound weight loss and severe dehydration it may be that he is currently a type II but transitioning to a type I diabetic. We will give IV fluids aggressively and will go ahead and start him on insulin drip at least initially. Will avoid the metformin given the nausea and vomiting has been having and this could possibly related to his metformin being started. His symptoms however actually started prior to being given the Metformin is only gotten worse since then. (2) Candidiasis Is this a current diagnosis for this admission?: Yes Plan: We will start on Diflucan. (3) Anxiety Is this a current diagnosis for this admission?: Yes (4) Hypertension Is this a current diagnosis for this admission?: Yes Plan: We will hold his antihypertensives and watch as we rehydrate him. (5) Obstructive sleep apnea Is this a current diagnosis for this admission?: Yes Plan: The patient reports being diagnosed years ago with sleep apnea but has not used CPAP in years. We will place him on CPAP nightly year. (6) Morbid obesity with BMI of 45.0-49.9, adult Is this a current diagnosis for this admission?: Yes - Time Time Spent: 50 to 70 Minutes - Inpatient Certification Medical Necessity: Need For IV Fluids - Plan Summary Plan Summary: We will admit to the [facility]. Will check fingersticks every hour while on the insulin drip. He probably will not need to be on insulin drip for long given that he does not currently have an anion gap.
[2017-08-19] MEDS ORDERED: FLUCONAZOLE 100 MG TABLET PO ONE (19:00)
[2017-08-19] MEDS ORDERED: ENOXAPARIN SODIUM INJ 40 MG/0.4 ML DISP.SYRIN SUBCUT ONE (19:30)
[2017-08-19 19:44] LABS: ANION GAP 17 (5-19); BLOOD UREA NITROGEN 8 mg/dL (7-20); CALCIUM 9.4 mg/dL (8.4-10.2); CARBON DIOXIDE 12 mmol/L (22-30); CHLORIDE 107 mmol/L (98-107); GLUCOSE 279 mg/dL (75-110); SODIUM 135.9 mmol/L (137-145)
[2017-08-19 20:09] LABS: POTASSIUM 4.2 mmol/L (3.6-5.0)
--- NOTE | 2017-08-19 21:11 | RADIOLOGY REPORT (SQ) ---
EXAM DESCRIPTION: U/S SCROTUM W/O DOPPLER COMPLETED DATE/TIME: 08/19/2017 8:59 pm REASON FOR STUDY: lump in right testicle COMPARISON: None. TECHNIQUE: Static and realtime cazares scale imaging of the scrotum and testes. Selected color Doppler and spectral images recorded to document blood flow. LIMITATIONS: None. FINDINGS: RIGHT: TESTICLE: Normal size. Multiple calcifications. Normal echotexture. Normal blood flow. No mass. EPIDIDYMIS: Normal. HYDROCELE OR VARICOCELE: No. HERNIA OR EXTRA-TESTICULAR MASS: No. OTHER: No other significant finding. LEFT: TESTICLE: Normal size. Multiple calcifications. Normal echotexture. Normal blood flow. No mass. EPIDIDYMIS: Normal. HYDROCELE OR VARICOCELE: No. HERNIA OR EXTRA-TESTICULAR MASS: No. OTHER: No other significant finding. IMPRESSION: EXTENSIVE BILATERAL TESTICULAR MICROLITHIASIS. NO FOCAL LESIONS. NO TORSION. TECHNICAL DOCUMENTATION: JOB ID: [id number] [employer]- All Rights Reserved
[2017-08-19] MEDS: FAMOTIDINE 20 MG TABLET PO SCH (21:56)
[2017-08-19] MEDS: NORMAL SALINE 100 ML with INSULIN REGULAR, HUMAN 100 UNIT IV PRN ×2 (21:57)
[2017-08-19 22:40] LABS: ANION GAP 15 (5-19); BLOOD UREA NITROGEN 8 mg/dL (7-20); CALCIUM 9.3 mg/dL (8.4-10.2); CARBON DIOXIDE 14 mmol/L (22-30); CHLORIDE 105 mmol/L (98-107); GLUCOSE 339 mg/dL (75-110); POTASSIUM 4.3 mmol/L (3.6-5.0); SODIUM 133.8 mmol/L (137-145)
[2017-08-19] MEDS: POTASSI CL 20 MEQ/D5-1/2NS 1L 1,000 ML IV PRN (22:56)
[2017-08-20] MEDS ORDERED: INFLUENZA ADLT QUAD (36MOS+) 2017-18 VAC 0.5 ML SYR IM PRN (00:35)
[2017-08-20 04:40] LABS: HEMATOCRIT 42.4 % (37.9-51.0); HEMOGLOBIN 14.3 g/dL (13.5-17.0); MEAN CORPUSCULAR HEMOGLOBIN 28.7 pg (27.0-33.4); MEAN CORPUSCULAR HGB CONC 33.8 g/dL (32.0-36.0); MEAN CORPUSCULAR VOLUME 85 fl (80-97); PLATELET COUNT 206 10^3/uL (150-450); RED BLOOD COUNT 4.99 10^6/uL (4.35-5.55); RED CELL DISTRIBUTION WIDTH 12.7 % (11.5-14.0); WHITE BLOOD COUNT 6.9 10^3/uL (4.0-10.5)
[2017-08-20 04:59] LABS: ANION GAP 14 (5-19); BLOOD UREA NITROGEN 6 mg/dL (7-20); CALCIUM 9.1 mg/dL (8.4-10.2); CARBON DIOXIDE 14 mmol/L (22-30); CHLORIDE 110 mmol/L (98-107); GLUCOSE 219 mg/dL (75-110); MAGNESIUM 1.7 mg/dL (1.6-2.3); POTASSIUM 3.8 mmol/L (3.6-5.0); SODIUM 138.3 mmol/L (137-145)
[2017-08-20] MEDS: POTASSI CL 20 MEQ/D5-1/2NS 1L 1,000 ML IV PRN (05:33)
[2017-08-20] MEDS: NORMAL SALINE 100 ML with INSULIN REGULAR, HUMAN 100 UNIT IV PRN ×2 (08:31)
[2017-08-20] MEDS: ENOXAPARIN SODIUM INJ 40 MG/0.4 ML DISP.SYRIN SUBCUT SCH (09:51)
[2017-08-20] MEDS: FAMOTIDINE 20 MG TABLET PO SCH ×2 (09:51→23:21)
[2017-08-20] MEDS: FLUCONAZOLE 100 MG TABLET PO SCH (09:51)
[2017-08-20] MEDS ORDERED: DEXTROSE 50%-WATER 25 GM/50 ML DISP.SYRIN IV PRN ×2 (10:19)
[2017-08-20] MEDS ORDERED: GLUCAGON,HUMAN RECOMB 1 MG INJ IM PRN (10:19)
[2017-08-20] MEDS ORDERED: DEXTROSE 40% GEL 15 GM TUBE PO PRN (10:19)
[2017-08-20] MEDS: 1/2 NORMAL SALINE 1,000 ML IV PRN (11:21)
[2017-08-20 11:30] LABS: ANION GAP 11 (5-19); BLOOD UREA NITROGEN 6 mg/dL (7-20); CALCIUM 9.2 mg/dL (8.4-10.2); CARBON DIOXIDE 17 mmol/L (22-30); CHLORIDE 109 mmol/L (98-107); GLUCOSE 268 mg/dL (75-110); SODIUM 136.8 mmol/L (137-145)
[2017-08-20 16:56] LABS: ANION GAP 12 (5-19); BLOOD UREA NITROGEN 8 mg/dL (7-20); CALCIUM 9.7 mg/dL (8.4-10.2); CARBON DIOXIDE 16 mmol/L (22-30); CHLORIDE 106 mmol/L (98-107); GLUCOSE 398 mg/dL (75-110); POTASSIUM 4.6 mmol/L (3.6-5.0); SODIUM 134.1 mmol/L (137-145)
[2017-08-20] MEDS: HUM INSULIN NPH/REG INSULIN HM 100 UNIT/1 ML 3 ML SUBCUT SCH (17:59)
[2017-08-20] MEDS: INSULIN LISPRO 100 UNIT/ML 3 ML VIAL SUBCUT SCH ×2 (17:59→23:21)
[2017-08-20] MEDS: METFORMIN HCL 500 MG TABLET PO SCH (17:59)
[2017-08-20 22:32] LABS: ANION GAP 11 (5-19); BLOOD UREA NITROGEN 10 mg/dL (7-20); CALCIUM 9.8 mg/dL (8.4-10.2); CARBON DIOXIDE 18 mmol/L (22-30); CHLORIDE 105 mmol/L (98-107); POTASSIUM 4.4 mmol/L (3.6-5.0); SODIUM 134.2 mmol/L (137-145)
[2017-08-20 22:42] LABS: GLUCOSE 432 mg/dL (75-110)
[2017-08-21 05:26] LABS: ANION GAP 13 (5-19); BLOOD UREA NITROGEN 8 mg/dL (7-20); CALCIUM 9.6 mg/dL (8.4-10.2); CARBON DIOXIDE 17 mmol/L (22-30); CHLORIDE 108 mmol/L (98-107); GLUCOSE 275 mg/dL (75-110)
[2017-08-21] MEDS: 1/2 NORMAL SALINE 1,000 ML IV PRN ×2 (06:06→16:55)
[2017-08-21] MEDS: HUM INSULIN NPH/REG INSULIN HM 100 UNIT/1 ML 3 ML SUBCUT SCH ×2 (08:01→17:01)
[2017-08-21] MEDS: INSULIN LISPRO 100 UNIT/ML 3 ML VIAL SUBCUT SCH ×4 (08:01→22:31)
[2017-08-21] MEDS: METFORMIN HCL 500 MG TABLET PO SCH ×2 (08:02→17:58)
[2017-08-21] MEDS: FLUCONAZOLE 100 MG TABLET PO SCH (09:30)
[2017-08-21] MEDS: ENOXAPARIN SODIUM INJ 40 MG/0.4 ML DISP.SYRIN SUBCUT SCH (09:30)
[2017-08-21] MEDS: FAMOTIDINE 20 MG TABLET PO SCH ×2 (09:30→22:31)
[2017-08-21] MEDS ORDERED: CLOTRIMAZOLE 1% CREAM 15 GM TP PRN (13:01)
[2017-08-21] MEDS ORDERED: TIZANIDINE HCL 4 MG TABLET PO ONE (13:30)
[2017-08-21 16:48] LABS: C-PEPTIDE 1.6 ng/mL (1.1-4.4); INSULIN 32.8 uIU/mL (2.6-24.9)
--- NOTE | 2017-08-21 16:53 | PDOC PROGRESS REPORT ---
Subjective Progress Note for:: 08/21/17 Subjective:: Feeling better today. No reported adverse effects from metformin. Reason For Visit: DIABETES,DEHYDRATION Physical Exam Vital Signs: Temp Pulse Resp BP Pulse Ox 98.4 F 98 20 151/92 H 100 08/21/17 12:12 08/21/17 14:00 08/21/17 12:12 08/21/17 12:12 08/21/17 12:12 Intake & Output 08/20/17 08/21/17 08/22/17 06:59 06:59 06:59 Intake Total 300 6224 355 Output Total 2175 550 Balance 300 4049 -195 Weight 168.7 kg 170.3 kg 170.3 kg General appearance: PRESENT: no acute distress, morbidly obese Head exam: PRESENT: atraumatic, normocephalic Eye exam: PRESENT: EOMI, PERRLA Respiratory exam: PRESENT: unlabored Cardiovascular exam: PRESENT: RRR. ABSENT: diastolic murmur, rubs, systolic murmur Neurological exam: PRESENT: alert, awake, oriented to person, oriented to place , oriented to time, oriented to situation, CN II-XII grossly intact. ABSENT: motor sensory deficit Psychiatric exam: PRESENT: appropriate affect, normal mood. ABSENT: homicidal ideation, suicidal ideation Results Laboratory Results: 08/20/17 04:25 08/21/17 04:23 08/19/17 08/20/17 08/20/17 19:09 16:25 21:54 Sodium 134.1 L 134.2 L Potassium 4.6 4.4 Chloride 106 105 Carbon Dioxide 16 L 18 L Anion Gap 12 11 BUN 8 10 Creatinine 0.70 0.74 Est GFR ( Amer) > 60 > 60 Est GFR (Non-Af Amer) > 60 > 60 Glucose 398 H 432 H* C-Peptide 1.6 Calcium 9.7 9.8 08/21/17 04:23 Sodium 138.0 Potassium 4.0 Chloride 108 H Carbon Dioxide 17 L Anion Gap 13 BUN 8 Creatinine 0.68 Est GFR ( Amer) > 60 Est GFR (Non-Af Amer) > 60 Glucose 275 H C-Peptide Calcium 9.6 Impressions: Scrotum Ultrasound 08/19/17 12:32 IMPRESSION: EXTENSIVE BILATERAL TESTICULAR MICROLITHIASIS. NO FOCAL LESIONS. NO TORSION. Assessment & Plan - Diagnosis (1) DKA (diabetic ketoacidoses) Qualifiers: Diabetes mellitus type: type 2 Diabetes mellitus complication detail: without coma Qualified Code(s): E11.10 - Type 2 diabetes mellitus with ketoacidosis without coma Is this a current diagnosis for this admission?: Yes Plan: resolved. (2) Candidiasis Is this a current diagnosis for this admission?: Yes Plan: Continue antifungal cream. (3) Morbid obesity with BMI of 45.0-49.9, adult Is this a current diagnosis for this admission?: Yes Plan: recommend weight loss - Time Time Spent with patient: 15-24 minutes Anticipated discharge: Home - Inpatient Certification Based on my medical assessment, after consideration of the patient's comorbidities, presenting symptoms, or acuity I expect that the services needed warrant INPATIENT care.: Yes I certify that my determination is in accordance with my understanding of Medicare's requirements for reasonable and necessary INPATIENT services [42 CFR 412.3e].: Yes Medical Necessity: Need Close Monitoring Due to Risk of Patient Decompensation
--- NOTE | 2017-08-21 16:54 | PDOC PROGRESS REPORT ---
Subjective Progress Note for:: 08/20/17 Subjective:: Feeling better today. Still thirsty. Urinary frequency has improved. Reason For Visit: DIABETES,DEHYDRATION Physical Exam Vital Signs: Temp Pulse Resp BP Pulse Ox 97.9 F 93 18 140/81 H 99 08/20/17 07:44 08/20/17 07:44 08/20/17 07:44 08/20/17 07:44 08/20/17 07:44 Intake & Output 08/19/17 08/20/17 08/21/17 06:59 06:59 06:59 Intake Total 300 Balance 300 Weight 168.7 kg General appearance: PRESENT: no acute distress, morbidly obese Head exam: PRESENT: atraumatic, normocephalic Eye exam: PRESENT: EOMI, PERRLA Neck exam: ABSENT: carotid bruit, JVD, lymphadenopathy, thyromegaly Respiratory exam: PRESENT: clear to auscultation clarisa. ABSENT: rales, rhonchi, wheezes Cardiovascular exam: PRESENT: RRR. ABSENT: diastolic murmur, rubs, systolic murmur GI/Abdominal exam: PRESENT: normal bowel sounds, soft Rectal exam: PRESENT: deferred Neurological exam: PRESENT: alert, awake, oriented to person, oriented to place , oriented to time, oriented to situation, CN II-XII grossly intact. ABSENT: motor sensory deficit Psychiatric exam: PRESENT: appropriate affect, normal mood. ABSENT: homicidal ideation, suicidal ideation Results Laboratory Results: 08/20/17 04:25 08/20/17 04:25 08/19/17 08/19/17 08/19/17 19:09 19:09 22:10 WBC RBC Hgb Hct MCV MCH MCHC RDW Plt Count Sodium 135.9 L 133.8 L Potassium 4.2 D 4.3 Chloride 107 105 Carbon Dioxide 12 L 14 L Anion Gap 17 15 BUN 8 8 Creatinine 0.80 0.78 Est GFR ( Amer) > 60 > 60 Est GFR (Non-Af Amer) > 60 > 60 Glucose 279 H 339 H Lactic Acid 1.1 Calcium 9.4 9.3 Magnesium 08/20/17 08/20/17 04:25 04:25 WBC 6.9 RBC 4.99 Hgb 14.3 Hct 42.4 MCV 85 MCH 28.7 MCHC 33.8 RDW 12.7 Plt Count 206 Sodium 138.3 Potassium 3.8 Chloride 110 H Carbon Dioxide 14 L Anion Gap 14 BUN 6 L Creatinine 0.68 Est GFR ( Amer) > 60 Est GFR (Non-Af Amer) > 60 Glucose 219 H Lactic Acid Calcium 9.1 Magnesium 1.7 Impressions: Scrotum Ultrasound 08/19/17 12:32 IMPRESSION: EXTENSIVE BILATERAL TESTICULAR MICROLITHIASIS. NO FOCAL LESIONS. NO TORSION. Assessment & Plan - Diagnosis (1) DKA (diabetic ketoacidoses) Qualifiers: Diabetes mellitus type: type 2 Diabetes mellitus complication detail: without coma Qualified Code(s): E11.10 - Type 2 diabetes mellitus with ketoacidosis without coma Is this a current diagnosis for this admission?: Yes Plan: resolved. (2) Candidiasis Is this a current diagnosis for this admission?: Yes Plan: Continue antifungal cream. (3) Morbid obesity with BMI of 45.0-49.9, adult Is this a current diagnosis for this admission?: Yes Plan: recommend weight loss - Time Time Spent with patient: 15-24 minutes Medications reviewed and adjusted accordingly: Yes Anticipated discharge: Home - Inpatient Certification Medical Necessity: Need Close Monitoring Due to Risk of Patient Decompensation, Need For IV Fluids
[2017-08-21] MEDS: TIZANIDINE HCL 4 MG TABLET PO SCH (22:31)
[2017-08-22 06:42] LABS: ANION GAP 9 (5-19); BLOOD UREA NITROGEN 8 mg/dL (7-20); CARBON DIOXIDE 20 mmol/L (22-30); CHLORIDE 107 mmol/L (98-107); GLUCOSE 291 mg/dL (75-110); POTASSIUM 3.5 mmol/L (3.6-5.0); SODIUM 135.9 mmol/L (137-145)
[2017-08-22] MEDS ORDERED: POTASSIUM CHLORIDE 10 MEQ TABLET.SA PO ONE (07:46)
[2017-08-22] MEDS: INSULIN LISPRO 100 UNIT/ML 3 ML VIAL SUBCUT SCH (08:30)
[2017-08-22] MEDS: HUM INSULIN NPH/REG INSULIN HM 100 UNIT/1 ML 3 ML SUBCUT SCH (08:30)
[2017-08-22] MEDS: METFORMIN HCL 500 MG TABLET PO SCH (08:31)
[2017-08-22] MEDS: ENOXAPARIN SODIUM INJ 40 MG/0.4 ML DISP.SYRIN SUBCUT SCH (09:18)
[2017-08-22] MEDS: FAMOTIDINE 20 MG TABLET PO SCH (09:18)
[2017-08-22] MEDS: TIZANIDINE HCL 4 MG TABLET PO SCH (09:18)
--- NOTE | 2017-08-22 11:21 | PDOC DISCHARGE SUMMARY ---
General - Admit/Disc Date/PCP Admission Date/Primary Care Provider: 08/19/17 17:31 Discharge Date: 08/22/17 - Discharge Diagnosis (1) DKA (diabetic ketoacidoses) Is this a current diagnosis for this admission?: Yes (2) Candidiasis Is this a current diagnosis for this admission?: Yes (3) Morbid obesity with BMI of 45.0-49.9, adult Is this a current diagnosis for this admission?: Yes - Additional Information Resuscitation Status: Full Code Discharge Diet: Diabetic Discharge Activity: Activity As Tolerated Prescriptions: Hum Insulin NPH/Reg Insulin Hm [Insulin 70-30 (NPH/Reg) 100 unit/mL] 32 unit SUBCUT BIDACBS #2 vial Metformin HCl [Glucophage 500 mg Tablet] 1,000 mg PO BIDACBS 30 Days #120 tablet Home Medications: Hum Insulin NPH/Reg Insulin Hm [Insulin 70-30 (NPH/Reg) 100 unit/mL] 32 unit SUBCUT BIDACBS #2 vial 08/22/17 Metformin HCl [Glucophage 500 mg Tablet] 1,000 mg PO BIDACBS 30 Days #120 tablet 08/22/17 History of Present Illness History of Present Illness: KIRK CHARLES is a 26 year old male who was seen in the emergency room on 10 February and diagnosed as a new onset diabetic. He was put on Glucophage and sent home. He presented to the ED with a 3 day history of nausea, vomiting and crampy abdominal pain. He also had polyuria, and polydipsia. He remarked that he had 50 pound weight loss over the last year. He is still morbidly obese. He reported difficulty eating over the last several weeks. In the ED, he was found to have elevated blood sugars and acidotic with a pH of 7.19 on a venous blood gas. The patient however did not have an anion gap. He did not have obvious ketoacidosis as he did not have an anion gap. Patient also complainted of blurred vision and cutaneous yeast infection of his scrotum and penis. Hospital Course Hospital Course: Because of his significant elevated blood sugars, he was treated as if he had DKA. He was started on an insulin drip. He was also given copious IV fluids. As stated before, he never had an elevated anion gap. However, what He did have , closed even more prior to discharge. He received diabetes education while he was here. He was transitioned from the insulin drip to 70/30 insulin twice daily. He received Chlortrimazole cream for his intertrigo. He was also restarted on metformin. His hospital stay was uneventful. His hemoglobin A1c was greater than 14%. A scrotal ultrasound was done because he felt a lump. It was normal except for multiple microcalcifications on both testes. The results were shared with him. He was instructed to follow-up with an urologist as needed. Physical Exam Vital Signs: Temp Pulse Resp BP Pulse Ox 97.9 F 79 18 132/91 H 98 08/22/17 07:52 08/22/17 07:52 08/22/17 07:52 08/22/17 07:52 08/22/17 07:52 Intake & Output 08/21/17 08/22/17 08/23/17 06:59 06:59 06:59 Intake Total 6224 4867 Output Total 2175 1900 Balance 4049 2967 Weight 170.3 kg 172.2 kg General appearance: PRESENT: no acute distress, morbidly obese Respiratory exam: PRESENT: clear to auscultation clarisa. ABSENT: rales, rhonchi, wheezes Cardiovascular exam: PRESENT: RRR. ABSENT: diastolic murmur, rubs, systolic murmur GI/Abdominal exam: PRESENT: normal bowel sounds, soft. ABSENT: distended, guarding, mass, organolmegaly, rebound, tenderness Results Laboratory Results: 08/20/17 04:25 08/22/17 06:08 08/19/17 08/22/17 19:09 06:08 Sodium 135.9 L Potassium 3.5 L Chloride 107 Carbon Dioxide 20 L Anion Gap 9 BUN 8 Creatinine 0.69 Est GFR ( Amer) > 60 Est GFR (Non-Af Amer) > 60 Glucose 291 H C-Peptide 1.6 Calcium 9.0 Impressions: Scrotum Ultrasound 08/19/17 12:32 IMPRESSION: EXTENSIVE BILATERAL TESTICULAR MICROLITHIASIS. NO FOCAL LESIONS. NO TORSION. Qualifiers PATEINT BEING DISCHARGED WITH ANY OF THE FOLLOWING DIAGNOSIS?: No Plan Time Spent: Greater than 30 Minutes - 35 minutes
[2017-08-22 11:28] VITALS: BP 130/85
== END 2017-08-22 14:32 | disposition home or self-care (01) | DRG 638 ==
LOC: ER 09:59 → EH 17:31 → 3W 08-20 04:47
PROVIDERS: ADMIT Internal Medicine; ATTEND Internal Medicine
DX: E11.10 Type 2 diabetes mellitus with ketoacidosis without coma (principal); Z68.43 Body mass index [BMI] 50.0-59.9, adult; E66.01 Morbid (severe) obesity due to excess calories; E86.0 Dehydration; N50.89 Other specified disorders of the male genital organs; G47.33 Obstructive sleep apnea (adult) (pediatric); F41.9 Anxiety disorder, unspecified; B37.2 Candidiasis of skin and nail; E78.5 Hyperlipidemia, unspecified; I10 Essential (primary) hypertension; J45.909 Unspecified asthma, uncomplicated; Z87.891 Personal history of nicotine dependence; Z79.4 Long term (current) use of insulin
CPT/HCPCS: 36415; 76870; 80048; 80053; 81001; 82803; 82962; 83036; 83525; 83605; 83735; 84681; 85025; 85027; 87491; 87591; 94640; 96360; 99285; J1650; J1815; J3480; J3490; J7030

== ENCOUNTER 2017-11-19 22:10 | Inpatient (IN) | payer SELFPAY ==
[2017-11-19] MEDS ORDERED: METHYLPREDNISOLONE INJ 125 MG/2 ML SDV IV ONE (23:09)
[2017-11-19] MEDS ORDERED: IPRATROPIUM/ALBUTEROL 0.5-2.5 MG/3 ML AMPUL NEB ONE (23:10)
[2017-11-19 23:15] LABS: ABSOLUTE BASOPHILS # (AUTO) 0.2 10^3/uL (0.0-0.2); ABSOLUTE EOSINOPHILS # (AUTO) 0.2 10^3/uL (0.0-0.6); ABSOLUTE LYMPHOCYTES (AUTO) 2.8 10^3/uL (0.5-4.7); ABSOLUTE MONOCYTES (AUTO) 0.8 10^3/uL (0.1-1.4); ABSOLUTE NEUT (AUTO) 6.6 10^3/uL (1.7-8.2); BASOPHILS % (AUTO) 1.5 % (0-2); EOSINOPHILS % (AUTO) 2.1 % (0-6); HEMATOCRIT 43.2 % (37.9-51.0); HEMOGLOBIN 14.5 g/dL (13.5-17.0); LYMPHOCYTES % (AUTO) 26.5 % (13-45); MEAN CORPUSCULAR HEMOGLOBIN 28.6 pg (27.0-33.4); MEAN CORPUSCULAR HGB CONC 33.6 g/dL (32.0-36.0); MEAN CORPUSCULAR VOLUME 85 fl (80-97); MONOCYTES % (AUTO) 7.5 % (3-13); PLATELET COUNT 273 10^3/uL (150-450); RED BLOOD COUNT 5.07 10^6/uL (4.35-5.55); RED CELL DISTRIBUTION WIDTH 12.6 % (11.5-14.0); SEGMENTED NEUTROPHILS % (AUTO) 62.4 % (42-78); TOTAL CELLS COUNTED % (AUTO) 100 %; WHITE BLOOD COUNT 10.5 10^3/uL (4.0-10.5)
[2017-11-19] MEDS: MAGNESIUM SULFATE/D5W 1 GM/100 ML RTUPB IV SCH (23:15)
--- NOTE | 2017-11-19 23:21 | ER Document Report ---
ED General - General Chief Complaint: Painful Cough Stated Complaint: DIFFICULTY BREATHING Time Seen by Provider: 11/19/17 23:05 Notes: Patient is a 27-year-old male who presents with complaints of difficulty breathing and coughing.'s been ongoing for 3 days. He says felt warm to touch but has not checked his temp at home. He does not have a history of asthma. He is a smoker. He is obese. He does have history of diabetes. He says he has not been checking his blood sugars. No vomiting. No diarrhea. No other complaints at this time. TRAVEL OUTSIDE OF THE [place] IN LAST 30 DAYS: No - Related Data Allergies/Adverse Reactions: No Known Allergies Allergy (Verified 08/19/17 10:04) Past Medical History - Social History Smoking Status: Current Every Day Smoker Chew tobacco use (# tins/day): No Frequency of alcohol use: Occasional Drug Abuse: None Family History: Reviewed & Not Pertinent Patient has suicidal ideation: No Patient has homicidal ideation: No - Past Medical History Cardiac Medical History: Reports: Hx Hypercholesterolemia, Hx Hypertension Pulmonary Medical History: Reports: Hx Asthma Endocrine Medical History: Reports: Hx Diabetes Mellitus Type 2 Renal/ Medical History: Denies: Hx Peritoneal Dialysis Psychiatric Medical History: Denies: Hx Depression Past Surgical History: Reports: Hx Adenoidectomy, Hx Orthopedic Surgery - right hand, Hx Tonsillectomy - T/A - Immunizations Hx Diphtheria, Pertussis, Tetanus Vaccination: Yes Hx Pneumococcal Vaccination: 07/06/14 Review of Systems - Review of Systems Notes: My Normal Review Basic REVIEW OF SYSTEMS: CONSTITUTIONAL : Subjective fever. EENT: Denies eye, ear, throat, or mouth pain or symptoms. Denies nasal or sinus congestion. CARDIOVASCULAR: Denies chest pain. RESPIRATORY: Recurrent coughing and difficulty breathing. GASTROINTESTINAL: Denies abdominal pain. Denies nausea, vomiting, or diarrhea. Denies constipation. Last BM: MUSCULOSKELETAL: Denies neck or back pain or joint pain or swelling. SKIN: Denies rash or skin lesions. NEUROLOGICAL: Denies altered mental status or loss of consciousness. Denies headache. Denies weakness or paralysis or loss of use of either side. Denies problems with gait or speech. Denies sensory or motor loss. Physical Exam - Vital signs Vitals: Temp Pulse Resp BP Pulse Ox 98.0 F 111 H 24 H 170/99 H 91 L 11/19/17 22:26 11/19/17 22:26 11/19/17 22:26 11/19/17 22:26 11/19/17 22:26 - Notes Notes: General Appearance: Well nourished, alert, cooperative, mild acute distress, no obvious discomfort. Recurrent very coarse cough on exam. Vitals: reviewed, See vital signs table. Head: no swelling or tenderness to the head Eyes: PERRL, EOMI, Conjuctiva clear Mouth: No decreasd moisture Throat: No tonsillar inflammation, No airway obstruction, No lymphadenopathy Lungs: Diffuse wheezing, No rales, diffuse rhonci, No accessory muscle use, good air exchange bilaterally. Heart: Normal rate, Regular rythm, No murmur, no rub Abdomen: Normal BS, soft, No rigidity, No abdominal tenderness, No guarding, no rebound, no abdominal masses, no organomegaly Extremities: strength 5/5 in all extremities, good pulses in all extremities, no swelling or tenderness in the extremities, no edema. Skin: warm, dry, appropriate color, no rash Neuro: speech clear, oriented x 3, normal affect, responds appropriately to questions. Course - Re-evaluation Re-evalutation: 11/20/17 00:43 Patient is feeling some better after the initial breathing treatment. He still has a lot of coarse breath sounds and still having a lot of wheezing. I will give him another breathing treatment. His oxygen saturations are 92% on room air. 11/20/17 02:20 Unfortunately patient's oxygen saturation started to decrease again when he is off the oxygen. This is while he is at rest. His oxygen saturation decreases to 87-88%. We therefore place him back on 2 L. He is received more breathing treatments. He still has coarseness and wheezing throughout lung roche. He still has some tachypnea. I feel that he would require admission. 11/20/17 02:[address] Barnes. He requested added BNP. BNP is now ordered. I will call Dr. Barnes back with this result. 11/20/17 03:19 BNP came back negative. Dr. Barnes did see the patient and patient is admitted. Dictation of this chart was performed using voice recognition software; therefore, there may be some unintended grammatical errors. 11/20/17 03:20 - Vital Signs Vital signs: Temp Pulse Resp BP Pulse Ox 98.0 F 111 H 32 H 170/99 H 92 11/19/17 22:26 11/19/17 22:26 11/20/17 01:00 11/19/17 22:26 11/20/17 01:34 - Laboratory Result Diagrams: 11/19/17 22:59 11/19/17 22:59 Laboratory results interpreted by me: 11/19/17 22:59 Glucose 437 H* Calcium 10.3 H - EKG Interpretation by Me Additional EKG results interpreted by me: 11/20/17 01:25 EKG is reviewed and interpreted by me. EKG shows sinus rhythm with rate of 102 bpm. He has occasional PVC. TN interval and QRS duration and QTc intervals are within normal range. Old EKG for comparison is from April 09, 2017. Discharge - Discharge Clinical Impression: Hypoxemia Acute bronchitis Qualifiers: Bronchitis organism: unspecified organism Qualified Code(s): J20.9 - Acute bronchitis, unspecified Condition: Stable Disposition: ADMITTED OBSERVATION Admitting Provider: Hospitalist Unit Admitted: Telemetry
--- NOTE | 2017-11-19 23:21 | RADIOLOGY REPORT (SQ) ---
EXAM DESCRIPTION: CHEST 2 VIEWS CLINICAL HISTORY: 27 years Male, Dyspnea COMPARISON: None. NUMBER OF VIEWS/TECHNIQUE: 2, PA and Lateral LIMITATIONS: None. FINDINGS: Pulmonary vascular congestion. Normal cardiac silhouette. Intact bony thorax. IMPRESSION: Pulmonary vascular congestion.
[2017-11-19 23:27] LABS: ALANINE AMINOTRANSFERASE 37 U/L (21-72); ALBUMIN 4.3 g/dL (3.5-5.0); ALKALINE PHOSPHATASE 105 U/L (38-126); ANION GAP 11 (5-19); ASPARTATE AMINO TRANSFERASE 19 U/L (17-59); BILIRUBIN,DIRECT 0.3 mg/dL (0.0-0.4); BILIRUBIN,TOTAL 0.3 mg/dL (0.2-1.3); BLOOD UREA NITROGEN 14 mg/dL (7-20); CALCIUM 10.3 mg/dL (8.4-10.2); CARBON DIOXIDE 28 mmol/L (22-30); CHLORIDE 98 mmol/L (98-107); POTASSIUM 4.2 mmol/L (3.6-5.0); SODIUM 137.4 mmol/L (137-145); TOTAL PROTEIN 6.9 g/dL (6.3-8.2)
[2017-11-19 23:38] LABS: GLUCOSE 437 mg/dL (75-110)
[2017-11-20] MEDS ORDERED: INSULIN REG, HUMAN 100 UNIT/ML 3 ML VIAL (PYX) SUBCUT ONE (00:01)
[2017-11-20] MEDS ORDERED: ALBUTEROL SULFATE 0.083% NEB 2.5 MG/3 ML AMPUL NEB ONE ×2 (00:43→02:25)
[2017-11-20] MEDS ORDERED: AZITHROMYCIN 250 MG TABLET PO ONE (00:48)
[2017-11-20] MEDS: MAGNESIUM SULFATE/D5W 1 GM/100 ML RTUPB IV SCH (01:28)
[2017-11-20] MEDS ORDERED: DEXTROSE 40% GEL 15 GM TUBE PO PRN ×2 (02:56)
[2017-11-20] MEDS ORDERED: GLUCAGON,HUMAN RECOMB 1 MG INJ IM PRN (02:56)
[2017-11-20] MEDS ORDERED: IPRATROPIUM/ALBUTEROL 0.5-2.5 MG/3 ML AMPUL NEB PRN (02:56)
[2017-11-20] MEDS ORDERED: ACETAMINOPHEN 325 MG TABLET PO PRN (02:56)
[2017-11-20] MEDS ORDERED: DEXTROSE 50%-WATER 25 GM/50 ML DISP.SYRIN IV PRN ×2 (02:56)
[2017-11-20] MEDS ORDERED: POTASSI CL 20 MEQ/1/2NS 1L 20 MEQ/1,000 ML RTUINJ IV ONE (02:58)
[2017-11-20] MEDS ORDERED: LACTULOSE SYRUP 20 GM/30 ML UDCUP PO ONE (02:59)
[2017-11-20] MEDS ORDERED: CHLORPHENIRAMINE MALEATE 4 MG TABLET PO ONE (02:59)
[2017-11-20] MEDS: FLUTICASONE NASAL SPRAY 50 MCG/SPRY 120 SPRAY/16 GM NASL SCH ×2 (03:00→21:36)
[2017-11-20] MEDS ORDERED: CHLORPHENIRAMINE MALEATE 4 MG TABLET ONE (03:47)
[2017-11-20] MEDS ORDERED: FLUTICASONE NASAL SPRAY 50 MCG/SPRY 120 SPRAY/16 GM ONE (03:47)
--- NOTE | 2017-11-20 05:50 | PDOC H&P ---
History of Present Illness Admission Date/PCP: 11/20/17 03:04 Patient complains of: Shortness of breath and cough History of Present Illness: KIRK CHARLES is a 27 year old male with past medical history of morbid obesity, obstructive sleep apnea, seasonal allergies, diabetes, tobacco and noncompliance. Patient presents with 24 hours of nonproductive cough complaints of rhinorrhea, GERD and unknown blood sugars. He is developed subjective fevers prompting evaluation emergency room where he is found to have pulse oximetry of 88 on room air requiring supplemental oxygen despite several albuterol and Atrovent treatments. Chest x-ray is unremarkable, cardiac workup likewise. He is started on empiric antibiotics and referred to the hospitalist. Patient is admittedly noncompliant with medication and lifestyle. Unaware of regular medication use or dosages. Past Medical History Cardiac Medical History: Reports: Hyperlipidema, Hypertension Pulmonary Medical History: Reports: Asthma, Sleep Apnea Endocrine Medical History: Reports: Diabetes Mellitus Type 2, Obesity Psychiatric Medical History: Reports: Tobacco Dependency Denies: Depression Past Surgical History Past Surgical History: Reports: Orthopedic Surgery - right hand, Tonsillectomy - T/A Social History Information Source: Patient, Emergency Med Personnel, [facility] Records Lives with: Spouse/Significant other Smoking Status: Current Every Day Smoker Frequency of Alcohol Use: Social Hx Recreational Drug Use: No Drugs: None Hx Prescription Drug Abuse: No - Advance Directive Resuscitation Status: Full Code Family History Family History: DM Parental Family History Reviewed: Yes Children Family History Reviewed: Yes Sibling(s) Family History Reviewed.: Yes Medication/Allergy Home Medications: Hum Insulin NPH/Reg Insulin Hm [Insulin 70-30 (NPH/Reg) 100 unit/mL] 32 unit SUBCUT BIDACBS #2 vial 08/22/17 Metformin HCl [Glucophage 500 mg Tablet] 1,000 mg PO BIDACBS 30 Days #120 tablet 08/22/17 Allergies/Adverse Reactions: No Known Allergies Allergy (Verified 08/19/17 10:04) Review of Systems Constitutional: PRESENT: as per HPI, fatigue, fever(s), weight loss. ABSENT: anorexia Eyes: ABSENT: visual disturbances Ears: ABSENT: hearing changes Nose, Mouth, and Throat: PRESENT: as per HPI. ABSENT: headache(s), mouth pain, sore throat Cardiovascular: PRESENT: dyspnea on exertion. ABSENT: chest pain, edema, orthropnea, palpitations Respiratory: PRESENT: as per HPI, cough, dyspnea. ABSENT: hemoptysis, sputum Gastrointestinal: PRESENT: as per HPI, bloating, constipation, nausea. ABSENT: abdominal pain, coffee ground emesis, diarrhea, dysphagia, heartburn, vomiting Genitourinary: PRESENT: as per HPI. ABSENT: dysuria, hematuria Musculoskeletal: ABSENT: joint swelling Integumentary: ABSENT: rash, wounds Neurological: ABSENT: abnormal gait, abnormal speech, confusion, dizziness, focal weakness, syncope Psychiatric: ABSENT: anxiety, depression, homidical ideation, suicidal ideation Endocrine: PRESENT: as per HPI, polyphagia, polyuria. ABSENT: cold intolerance , heat intolerance, polydipsia Hematologic/Lymphatic: ABSENT: easy bleeding, easy bruising Physical Exam Vital Signs: Temp Pulse Resp BP Pulse Ox 98.0 F 111 H 30 H 144/74 H 95 11/19/17 22:26 11/19/17 22:26 11/20/17 05:01 11/20/17 05:01 11/20/17 05:01 Pulse Oximeter Continuous Start: 11/20/17 02: 56 Freq: RTQ4 Status: Active Document 11/20/17 04:00 STI (Rec: 11/20/17 04:24 STI [id number]) Pulse Oximetry Assessment Oxygen Saturation (92-100) 91 Oxygen Delivery Method Bi-pap Fraction of Inspired Oxygen (FIO2) 40 Equipment Usage Equipment Standby Continuous SpO2 Machine # ER MONITOR General appearance: PRESENT: cooperative, disheveled, mild distress, morbidly obese Head exam: PRESENT: atraumatic, normocephalic Eye exam: PRESENT: conjunctiva pink, EOMI, PERRLA. ABSENT: scleral icterus Ear exam: PRESENT: normal external ear exam Mouth exam: PRESENT: moist, tongue midline Neck exam: ABSENT: carotid bruit, JVD, lymphadenopathy, thyromegaly Respiratory exam: PRESENT: crackles, prolonged expiratory phas, rales, symmetrical, tachypnea, wheezes. ABSENT: rhonchi, stridor Cardiovascular exam: PRESENT: RRR. ABSENT: diastolic murmur, rubs, systolic murmur Pulses: PRESENT: normal dorsalis pedis pul Vascular exam: PRESENT: normal capillary refill GI/Abdominal exam: PRESENT: normal bowel sounds, soft. ABSENT: distended, guarding, mass, organolmegaly, rebound, tenderness Rectal exam: PRESENT: deferred Extremities exam: PRESENT: full ROM. ABSENT: calf tenderness, clubbing, pedal edema Neurological exam: PRESENT: alert, awake, oriented to person, oriented to place , oriented to time, oriented to situation, CN II-XII grossly intact. ABSENT: motor sensory deficit Psychiatric exam: PRESENT: appropriate affect, normal mood. ABSENT: homicidal ideation, suicidal ideation Skin exam: PRESENT: dry, intact, warm. ABSENT: cyanosis, rash Results Impressions: Chest X-Ray 11/19/17 00:00 IMPRESSION: Pulmonary vascular congestion. Assessment & Plan - Diagnosis (1) Acute bronchitis Qualifiers: Bronchitis organism: unspecified organism Qualified Code(s): J20.9 - Acute bronchitis, unspecified Is this a current diagnosis for this admission?: Yes Plan: Incentive spirometry, albuterol and Atrovent, empiric antibiotics. Tobacco cessation (2) Diabetes Qualifiers: Diabetes mellitus type: type 1 Is this a current diagnosis for this admission?: Yes Plan: Previous outpatient regiment, Humalog sliding scale and education (3) Obstructive sleep apnea Is this a current diagnosis for this admission?: Yes Plan: Education and BiPAP (4) Hypoxemia Is this a current diagnosis for this admission?: Yes Plan: Supplemental oxygen correction of #1 (5) Cigarette smoker one half pack a day or less Is this a current diagnosis for this admission?: Yes Plan: Tobacco Dependence patient received tobacco cessation counseling and offered nicotine replacement options (6) Morbid obesity with BMI of 45.0-49.9, adult Is this a current diagnosis for this admission?: Yes Plan: Morbid obesity will evaluate for metabolic cause with evaluation of thyroid function and dietitian consultation
[2017-11-20] MEDS: HEPARIN SOD (PORCINE) 5,000 UNIT/ML 1 ML SYRINGE SUBCUT SCH ×3 (06:00→21:36)
[2017-11-20 06:03] LABS: ABSOLUTE BASOPHILS # (AUTO) 0.1 10^3/uL (0.0-0.2); ABSOLUTE EOSINOPHILS # (AUTO) 0.1 10^3/uL (0.0-0.6); ABSOLUTE LYMPHOCYTES (AUTO) 1.1 10^3/uL (0.5-4.7); ABSOLUTE MONOCYTES (AUTO) 0.2 10^3/uL (0.1-1.4); ABSOLUTE NEUT (AUTO) 9.2 10^3/uL (1.7-8.2); BASOPHILS % (AUTO) 0.6 % (0-2); EOSINOPHILS % (AUTO) 0.5 % (0-6); HEMATOCRIT 43.7 % (37.9-51.0); HEMOGLOBIN 14.6 g/dL (13.5-17.0); LYMPHOCYTES % (AUTO) 10.7 % (13-45); MEAN CORPUSCULAR HEMOGLOBIN 28.2 pg (27.0-33.4); MEAN CORPUSCULAR HGB CONC 33.5 g/dL (32.0-36.0); MEAN CORPUSCULAR VOLUME 84 fl (80-97); PLATELET COUNT 268 10^3/uL (150-450); RED BLOOD COUNT 5.19 10^6/uL (4.35-5.55); RED CELL DISTRIBUTION WIDTH 12.7 % (11.5-14.0); SEGMENTED NEUTROPHILS % (AUTO) 86.2 % (42-78); TOTAL CELLS COUNTED % (AUTO) 100 %; WHITE BLOOD COUNT 10.7 10^3/uL (4.0-10.5)
[2017-11-20 06:26] LABS: ANION GAP 16 (5-19); BLOOD UREA NITROGEN 12 mg/dL (7-20); CARBON DIOXIDE 23 mmol/L (22-30); CHLORIDE 102 mmol/L (98-107); POTASSIUM 4.9 mmol/L (3.6-5.0); SODIUM 140.6 mmol/L (137-145)
[2017-11-20 06:35] LABS: GLUCOSE 434 mg/dL (75-110)
[2017-11-20 06:36] LABS: URINE AMPHETAMINES SCREEN NEGATIVE; URINE BARBITURATES SCREEN NEGATIVE; URINE BENZODIAZEPINES SCREEN NEGATIVE; URINE COCAINE SCREEN NEGATIVE; URINE MARIJUANA (THC) SCREEN NEGATIVE; URINE METHADONE SCREEN NEGATIVE; URINE PHENCYCLIDINE SCREEN NEGATIVE
[2017-11-20] MEDS: INSULIN LISPRO 100 UNIT/ML 3 ML VIAL SUBCUT PRN ×3 (06:40→18:06)
--- NOTE | 2017-11-20 07:34 | EKG REPORT ---
SEVERITY:- OTHERWISE NORMAL ECG - SINUS RHYTHM WITH PAC : Confirmed by: Eran Joseph MD 20-Nov-2017 07:33:25
[2017-11-20] MEDS ORDERED: HUM INSULIN NPH/REG INSULIN HM 100 UNIT/1 ML 3 ML SUBCUT SCH (08:00)
[2017-11-20] MEDS: IPRATROPIUM/ALBUTEROL 0.5-2.5 MG/3 ML AMPUL NEB SCH ×3 (08:19→19:39)
[2017-11-20] MEDS: LEVOFLOXACIN 750 MG/D5W RTU 750 MG/150 ML RTUPB IV SCH (09:24)
[2017-11-20] MEDS: ENALAPRIL MALEATE 10 MG TABLET PO SCH ×2 (09:25→21:33)
[2017-11-20] MEDS: FAMOTIDINE 20 MG TABLET PO SCH ×2 (09:26→21:33)
[2017-11-20 14:48] LABS: ARTERIAL BLOOD BASE EXCESS -1.6 mmol/L; ARTERIAL BLOOD FIO2 ROOM AIR; ARTERIAL BLOOD H2CO3 1.07 mmol/L (1.05-1.35); ARTERIAL BLOOD HCO3 22.4 mmol/L (20-26); ARTERIAL BLOOD O2 SATURATION 89.4 % (94-98); ARTERIAL BLOOD PCO2 35.7 mmHg (35-45); ARTERIAL BLOOD PH 7.42 (7.35-7.45); ARTERIAL BLOOD PO2 55.2 mmHg (80-100); ARTERIAL BLOOD TOTAL CO2 23.5 mmol/L (23-27)
--- NOTE | 2017-11-20 16:36 | Progress Note ---
Provider Note Provider Note: The patient was assessed in the emergency department. Agree with the treatment plan set forth by the mail carrier technician. 1. Acute respiratory failure with hypoxia as evidenced by tachycardia HR 111, tachypnea RR 24, and pulse oximetry of 88% while on room air. The patient has been empirically placed on IV Levaquin for coverage of acute bronchitis versus community-acquired pneumonia. Albuterol and Atrovent nebulizer treatments are provided. Flutter valve and incentive spirometry hourly while awake. Supplemental oxygen is required to maintain oxygen saturations greater than 90% . BiPAP nightly and as needed. Additionally, An ABG was obtained today to evaluate his respiratory status. PH 7.42, PCO2 35.7, PO2 55.2, HCO3 22.4. Given the patient's persistent hypoxia and tachycardia, differential has been expanded to include pulmonary embolus. Will obtain a d-dimer and follow-up imaging as indicated. 2. Uncontrolled diabetes mellitus. Patient's outpatient regimen of Lantus 50 units nightly is continued. He is also covered with Humalog for sliding scale coverage. The patient also indicates that he is to be taking metformin once daily; this is held while inpatient. I have asked the steeple jack and registered dietitian to meet with the patient. I personally had a long discussion with the patient with regard to risk factors of continued uncontrolled diabetes mellitus. The patient appears to have low health literacy regarding this and will require continued education. 3. YOU. Continue BiPAP nightly and as needed. 4. Hypoxia. Secondary to #1. Plan as above. 5. Tobacco abuse. Smoking cessation is encouraged. Nicotine or placement therapy is provided. 6. Morbid obesity. Have requested the registered dietitian and steeple jack meet with the patient.
[2017-11-20] MEDS ORDERED: INSULIN GLARGINE,HUM.REC.ANLOG 1,000 UNIT/10 ML UNIT SUBCUT SCH (22:00)
[2017-11-21] MEDS: IPRATROPIUM/ALBUTEROL 0.5-2.5 MG/3 ML AMPUL NEB SCH ×4 (02:08→21:38)
[2017-11-21] MEDS: HEPARIN SOD (PORCINE) 5,000 UNIT/ML 1 ML SYRINGE SUBCUT SCH ×3 (05:34→21:47)
[2017-11-21 06:40] LABS: ABSOLUTE BASOPHILS # (AUTO) 0.1 10^3/uL (0.0-0.2); ABSOLUTE MONOCYTES (AUTO) 0.7 10^3/uL (0.1-1.4); ABSOLUTE NEUT (AUTO) 7.3 10^3/uL (1.7-8.2); BASOPHILS % (AUTO) 0.8 % (0-2); EOSINOPHILS % (AUTO) 0.4 % (0-6); HEMOGLOBIN 13.1 g/dL (13.5-17.0); LYMPHOCYTES % (AUTO) 26.9 % (13-45); MEAN CORPUSCULAR HEMOGLOBIN 27.8 pg (27.0-33.4); MEAN CORPUSCULAR HGB CONC 32.8 g/dL (32.0-36.0); MEAN CORPUSCULAR VOLUME 85 fl (80-97); MONOCYTES % (AUTO) 6.3 % (3-13); PLATELET COUNT 245 10^3/uL (150-450); RED BLOOD COUNT 4.73 10^6/uL (4.35-5.55); RED CELL DISTRIBUTION WIDTH 12.7 % (11.5-14.0); SEGMENTED NEUTROPHILS % (AUTO) 65.6 % (42-78); TOTAL CELLS COUNTED % (AUTO) 100 %; WHITE BLOOD COUNT 11.1 10^3/uL (4.0-10.5)
[2017-11-21 06:53] LABS: ANION GAP 11 (5-19); BLOOD UREA NITROGEN 15 mg/dL (7-20); CALCIUM 9.2 mg/dL (8.4-10.2); CARBON DIOXIDE 25 mmol/L (22-30); CHLORIDE 103 mmol/L (98-107); GLUCOSE 381 mg/dL (75-110); POTASSIUM 3.8 mmol/L (3.6-5.0); SODIUM 139.1 mmol/L (137-145)
[2017-11-21] MEDS: INSULIN LISPRO 100 UNIT/ML 3 ML VIAL SUBCUT PRN ×2 (08:14→12:50)
[2017-11-21] MEDS: FLUTICASONE NASAL SPRAY 50 MCG/SPRY 120 SPRAY/16 GM NASL SCH ×2 (10:13→22:01)
[2017-11-21] MEDS: LEVOFLOXACIN 750 MG/D5W RTU 750 MG/150 ML RTUPB IV SCH (10:16)
[2017-11-21] MEDS ORDERED: INSULIN GLARGINE,HUM.REC.ANLOG 1,000 UNIT/10 ML UNIT SUBCUT SCH (10:34)
[2017-11-21] MEDS: FAMOTIDINE 20 MG TABLET PO SCH ×2 (10:36→21:46)
[2017-11-21] MEDS: ENALAPRIL MALEATE 10 MG TABLET PO SCH ×2 (10:36→21:59)
--- NOTE | 2017-11-21 12:56 | RADIOLOGY REPORT (SQ) ---
EXAM DESCRIPTION: CT CHEST WITHOUT COMPLETED DATE/TIME: 11/21/2017 12:39 pm REASON FOR STUDY: dyspnea, hypoxia COMPARISON: Chest x-ray dated 11/19/2017. Chest CTA dated 07/31/2015. TECHNIQUE: CT scan performed of the chest without intravenous contrast. Images reviewed with lung, soft tissue and bone windows. Reconstructed coronal and sagittal MPR images reviewed. All images st ored on PACS. All CT scanners at this facility use dose modulation, iterative reconstruction, and/or weight based d osing when appropriate to reduce radiation dose to as low as reasonably achievable (ALARA). [facility]: Dose Right [facility]: CareDose [facility]: Dose Right [facility]: Teradose 4D [facility]: Jingit RADIATION DOSE: CT Rad equipment meets quality standard of care and radiation dose reduction techniq ues were employed. CTDIvol: 30.0 mGy. DLP: 1122 mGy-cm. mGy. LIMITATIONS: No technical limitations. FINDINGS: LUNGS AND PLEURA: Scattered ill-defined ground-glass opacities primarily in the right uppe r lobe and right middle lobe. Linear densities in both lower lobes. No pleural effusion or pleural thickening. HILAR AND MEDIASTINAL STRUCTURES: No identified masses or abnormal nodes. No obvious aneurysm. HEART AND VASCULAR STRUCTURES: No aneurysm. No pericardial effusion. UPPER ABDOMEN: No significant findings. Limited exam. THYROID AND OTHER SOFT TISSUES: No masses. No adenopathy. BONES: No significant finding. HARDWARE: None in the chest. OTHER: No other significant findings. IMPRESSION: PROBABLE PLATELIKE ATELECTASIS IN THE LOWER LOBES. ILL-DEFINED GROUND-GLASS OPACITIES P RIMARILY IN THE RIGHT LUNG MAY BE DUE TO ATELECTASIS, INFECTION, OR INFLAMMATION/ PNEUMONITIS. DEVEL OPING PULMONARY EDEMA PROBABLY LESS LIKELY. TECHNICAL DOCUMENTATION: JOB ID: [id number] Quality ID # [id number]: Final reports with documentation of one or more dose reduction techniques (e.g., Au tomated exposure control, adjustment of the mA and/or kV according to patient size, use of iterative reconstruction technique) 2010 [employer]- All Rights Reserved Reading location - IP/workstation name: [email or web address]
--- NOTE | 2017-11-21 16:57 | PDOC PROGRESS REPORT ---
Subjective Progress Note for:: 11/21/17 Subjective:: The patient is a 27-year-old male with past medical history of morbid obesity, obstructive sleep apnea, seasonal allergies, uncontrolled diabetes mellitus, tobacco and noncompliance who was admitted on 11/20/17 with acute respiratory failure with hypoxia secondary to bronchitis. The patient is seen on morning rounds. He is found sitting upright in bed on room air. He is currently saturating 90% with a heart rate of 96. While ambulatory this morning, the patient's room air oxygen saturation desatted to the low 80s and he became tachycardic at a rate of 108. This improved immediately upon reapplication of supplemental oxygen 2 L/min. The patient reports that he has developed a productive cough. He also complains of right lower leg pain to the anterior portion described as spasms. He denies injury. He has no calf tenderness, edema, or erythema. Otherwise, he is feeling quite well. He does admit to dietary indiscretion overnight having several things from [employer]. He is strongly advised against these continued dietary habits given his uncontrolled diabetes, morbid obesity, and likely obesity hypoventilation syndrome. A significant portion of time was spent in educating the patient on lifestyle changes needed to improve his health. Reason For Visit: ACUTE RESPIRATORY FAILURE WITH HYPOXIA Physical Exam Vital Signs: Temp Pulse Resp BP Pulse Ox 98.2 F 95 22 H 123/67 93 11/21/17 15:51 11/21/17 15:51 11/21/17 15:51 11/21/17 15:51 11/21/17 15:51 Pulse Oximeter Continuous Start: 11/20/17 02: 56 Freq: RTQ4 Status: Active Document 11/21/17 15:20 LDA (Rec: 11/21/17 15:20 LDA [email or web address]) Pulse Oximetry Assessment Oxygen Saturation (92-100) 92 Oxygen Delivery Method Room Air Fraction of Inspired Oxygen (FIO2) 21 Equipment Usage Equipment in Use Continuous SpO2 Machine # 8 Intake & Output 11/20/17 11/21/17 11/22/17 06:59 06:59 06:59 Intake Total 1220 Balance 1220 General appearance: PRESENT: no acute distress, morbidly obese, well-developed, well-nourished Head exam: PRESENT: atraumatic, normocephalic Eye exam: PRESENT: conjunctiva pink, EOMI, PERRLA. ABSENT: scleral icterus Ear exam: PRESENT: normal external ear exam Mouth exam: PRESENT: moist, tongue midline Neck exam: ABSENT: carotid bruit, JVD, lymphadenopathy, thyromegaly Respiratory exam: PRESENT: decreased breath sounds, rhonchi, symmetrical, tachypnea, unlabored, other - Supplemental oxygen via NC. ABSENT: rales, wheezes Cardiovascular exam: PRESENT: RRR, +S1, +S2. ABSENT: diastolic murmur, rubs, systolic murmur Pulses: PRESENT: normal dorsalis pedis pul Vascular exam: PRESENT: normal capillary refill GI/Abdominal exam: PRESENT: normal bowel sounds, soft. ABSENT: distended, guarding, mass, organolmegaly, rebound, tenderness Rectal exam: PRESENT: deferred Extremities exam: PRESENT: full ROM, tenderness - RLE. ABSENT: calf tenderness , clubbing, pedal edema Neurological exam: PRESENT: alert, awake, oriented to person, oriented to place , oriented to time, oriented to situation, CN II-XII grossly intact. ABSENT: motor sensory deficit Psychiatric exam: PRESENT: appropriate affect, normal mood. ABSENT: homicidal ideation, suicidal ideation Skin exam: PRESENT: dry, intact, warm. ABSENT: cyanosis, rash Results Impressions: Chest X-Ray 11/19/17 00:00 IMPRESSION: Pulmonary vascular congestion. Chest CT 11/21/17 00:00 IMPRESSION: PROBABLE PLATELIKE ATELECTASIS IN THE LOWER LOBES. ILL-DEFINED GROUND-GLASS OPACITIES PRIMARILY IN THE RIGHT LUNG MAY BE DUE TO ATELECTASIS, INFECTION, OR INFLAMMATION/ PNEUMONITIS. DEVELOPING PULMONARY EDEMA PROBABLY LESS LIKELY. Assessment & Plan - Diagnosis (1) Acute respiratory failure with hypoxia Is this a current diagnosis for this admission?: Yes Plan: Acute respiratory failure with hypoxia as evidenced by tachycardia heart rate 111, tachypnea respiratory rate 24, and pulse oximetry of 88% while on room air. Chest x-ray revealed pulmonary vascular congestion. ABG demonstrated hypoxemia with pH 7.42, PCO2 35.7, P2 55.2, HCO3 22.4 D-dimer was negative CT of the chest revealed probable platelike atelectasis to the lower lobes, ill- defined groundglass opacities primarily to the right lung may be due to atelectasis, infection, or inflammation/pneumonitis. The patient is admitted to the medical floor on continuous pulse oximetry. Supplemental oxygen is required to maintain oxygen saturations greater than 90%. BiPAP nightly and as needed. The patient continues to desaturate with minimal activity but does appear to be maintaining his oxygen saturations on room air while at rest. He is provided scheduled and as needed nebulizer treatments. He has been empirically placed on Levaquin for treatment of bronchitis. He is receiving Mucinex twice daily. Incentive spirometry and flutter valve to bedside. (2) Acute bronchitis Qualifiers: Bronchitis organism: unspecified organism Qualified Code(s): J20.9 - Acute bronchitis, unspecified Is this a current diagnosis for this admission?: Yes Plan: WBCs are slightly elevated to 11.1. The patient does have a productive cough and rhonchi today. Will obtain sputum cultures. CT of the Chest does show possible PNA to RML, although atelectasis is more likely. The patient has been empirically placed on IV Levaquin; today is day 2. He is supported with supplemental oxygen, BiPAP, nebulizer treatments, Mucinex, incentive spirometry/flutter valve, and encouraged mobility. (3) Diabetes Qualifiers: Diabetes mellitus type: type 1 Is this a current diagnosis for this admission?: Yes Plan: Uncontrolled diabetes mellitus with morbid obesity and hemoglobin A1c greater than 14%. The patient's home dose of Lantus 54 units nightly continued. He is placed on a consistent carb diet. Accu-Cheks before meals and at bedtime with Humalog for sliding scale coverage. He has met with the registered dietitian and the chemical educator. Despite this, the patient continues to have dietary indiscretion as he endorses eating fast food brought in by family members overnight. We had a lengthy discussion with regard to his need to reduce his carb and total calorie intake. Despite this, the patient continues to request that his diet to be liberated to allow for him to have cheese and larger portion sizes. (4) Obstructive sleep apnea Is this a current diagnosis for this admission?: Yes Plan: YOU per patient, although, it is unclear as to whether or not he has ever undergone a sleep study. He has been unreliably compliant with BiPAP recommendations. He does have BiPAP ordered nightly and as needed. He is strongly encouraged to utilize BiPAP therapy while inpatient. He is also recommended to follow-up with his primary care provider for a formal overnight sleep study. (5) Hypoxemia Is this a current diagnosis for this admission?: Yes Plan: Secondary to acute bronchitis, morbid obesity, YOU. Somewhat improved today. Plan as above. (6) Cigarette smoker one half pack a day or less Is this a current diagnosis for this admission?: Yes Plan: Smoking cessation is strongly encouraged. Nicotine replacement therapies are provided. (7) Morbid obesity with BMI of 45.0-49.9, adult Is this a current diagnosis for this admission?: Yes Plan: The patient's morbid obesity has directly contributed to his hypoxemia and can further complicate his recovery. I have expressed concern to the patient that his weight may lead to obesity hypoventilation syndrome. He also has an hemoglobin A1c of greater than 14. He remains noncompliant with diabetic diet. (8) Noncompliance Is this a current diagnosis for this admission?: Yes Plan: The patient has been noncompliant with dietary recommendations. He has had intermittent noncompliance with oxygen and BiPAP. - Time Time Spent with patient: 35 or more minutes - Total time 45 min; greater than 50 % spent in councelling and cooridation of care. Medications reviewed and adjusted accordingly: Yes Anticipated discharge: Home Within: within 24 hours
[2017-11-21] MEDS ORDERED: NICOTINE 7 MG/24 HR PATCH.TD24 TD SCH (18:00)
[2017-11-21] MEDS ORDERED: INSULIN LISPRO 100 UNIT/ML 3 ML VIAL SUBCUT ONE (18:15)
[2017-11-21] MEDS ORDERED: INSULIN REG, HUMAN 100 UNIT/ML 3 ML VIAL (PYX) ONE (21:40)
[2017-11-21] MEDS: GUAIFENESIN 600 MG TABLET.SA PO SCH (21:46)
[2017-11-21] MEDS ORDERED: INSULIN REG, HUMAN 100 UNIT/ML 3 ML VIAL (PYX) IV ONE (22:00)
[2017-11-22] MEDS: IPRATROPIUM/ALBUTEROL 0.5-2.5 MG/3 ML AMPUL NEB SCH ×2 (02:33→07:40)
[2017-11-22] MEDS: HEPARIN SOD (PORCINE) 5,000 UNIT/ML 1 ML SYRINGE SUBCUT SCH (05:26)
[2017-11-22 05:54] LABS: HEMATOCRIT 39.5 % (37.9-51.0); HEMOGLOBIN 13.2 g/dL (13.5-17.0); MEAN CORPUSCULAR HEMOGLOBIN 28.3 pg (27.0-33.4); MEAN CORPUSCULAR HGB CONC 33.5 g/dL (32.0-36.0); MEAN CORPUSCULAR VOLUME 84 fl (80-97); PLATELET COUNT 204 10^3/uL (150-450); RED BLOOD COUNT 4.68 10^6/uL (4.35-5.55); RED CELL DISTRIBUTION WIDTH 12.4 % (11.5-14.0)
[2017-11-22 06:08] LABS: ANION GAP 12 (5-19); BLOOD UREA NITROGEN 13 mg/dL (7-20); CALCIUM 8.6 mg/dL (8.4-10.2); CARBON DIOXIDE 25 mmol/L (22-30); CHLORIDE 105 mmol/L (98-107); GLUCOSE 278 mg/dL (75-110); POTASSIUM 3.6 mmol/L (3.6-5.0); SODIUM 142.1 mmol/L (137-145)
[2017-11-22] MEDS: INSULIN LISPRO 100 UNIT/ML 3 ML VIAL SUBCUT PRN (08:29)
[2017-11-22 08:30] VITALS: BP 149/94
[2017-11-22] MEDS: GUAIFENESIN 600 MG TABLET.SA PO SCH (09:11)
[2017-11-22] MEDS: FAMOTIDINE 20 MG TABLET PO SCH (09:11)
[2017-11-22] MEDS: ENALAPRIL MALEATE 10 MG TABLET PO SCH (09:12)
[2017-11-22] MEDS: FLUTICASONE NASAL SPRAY 50 MCG/SPRY 120 SPRAY/16 GM NASL SCH (09:13)
[2017-11-22] MEDS ORDERED: LISINOPRIL 5 MG TABLET PO SCH (10:00)
[2017-11-22] MEDS ORDERED: LEVOFLOXACIN 750 MG TABLET PO SCH (10:00)
--- NOTE | 2017-11-22 16:38 | PDOC DISCHARGE SUMMARY ---
General - Admit/Disc Date/PCP Admission Date/Primary Care Provider: 11/21/17 10:36 Discharge Date: 11/22/17 - Discharge Diagnosis (1) Acute respiratory failure with hypoxia Is this a current diagnosis for this admission?: Yes Summary: Improved; patient presented with acute respiratory failure with hypoxia as evidenced by tachycardia heart rate 111, tachypnea respiratory rate 24, and pulse oximetry of 88% while on room air. Chest x-ray revealed pulmonary vascular congestion. ABG demonstrated hypoxemia with pH 7.42, PCO2 35.7, P2 55.2, HCO3 22.4 D-dimer was negative CT of the chest revealed probable platelike atelectasis to the lower lobes, ill- defined groundglass opacities primarily to the right lung may be due to atelectasis, infection, or inflammation/pneumonitis. The patient was admitted to the medical floor on continuous pulse oximetry. He was provided supplemental oxygen to maintain oxygen saturations greater than 90% . At time of discharge, the patient was maintaining room air oxygen saturations while at rest and while ambulatory without elevation in heart rate. The patient was ordered BiPAP while in bed. Unfortunately, despite multiple educational attempts by myself and nursing staff, the patient continued to refuse all BiPAP interventions. He was provided scheduled and as needed nebulizer treatments, which he complied with. He was empirically placed on Levaquin for treatment of bronchitis. He was further supported with Mucinex twice daily, flonase, Incentive spirometry , and flutter valve. At time of discharge, the patient is in stable condition. Although he remains mildly tachypneic, his heart rate is appropriate (60-96), and maintains oxygen saturations on room air. He is strongly advised to discontinue smoking and to begin a weight loss regimen. He is provided prescriptions for Levaquin, Flonase, Mucinex, DuoNeb's, and NicoDerm patch. He is instructed to follow-up with his primary care provider within 1 week. (2) Acute bronchitis Is this a current diagnosis for this admission?: Yes Summary: Leukocytosis has resolved and the patient has remained afebrile throughout the admission. He does have a productive cough and rhonchi. Sputum cultures are pending. Blood cultures were not obtained. CT of the Chest does show possible PNA to RML, although atelectasis is more likely. The patient has been empirically placed on Levaquin; to complete a 7 day course of therapy. (3) Diabetes Is this a current diagnosis for this admission?: Yes Summary: Uncontrolled diabetes mellitus with morbid obesity and hemoglobin A1c greater than 14%. The patient's home dose of Lantus 50 units nightly was increased to 54 units. He was placed on a consistent carb diet with Accu-Cheks before meals and at bedtime with Humalog for sliding scale coverage. He has met with the registered dietitian and the paraeducator. Despite this, the patient continues to have dietary indiscretion as he endorses eating fast food brought in by family members overnight. We had a lengthy discussion with regard to his need to reduce his carb and total calorie intake. Following this, he continued to eat food brought in by family members in addition to meals provided by the hospital. The patient acknowledges the need to reduce calorie and carb intake, however, did not demonstrate commitment to do so. Unfortunately, the the patient's blood glucose continues to be elevated ([phone] ). He is instructed to continue metformin, Lantus, and Humalog for sliding scale coverage after discharge. He is strongly warned about the detriment he is doing to his health. He is advised to follow up with the [facility] within 1 week. (4) Obstructive sleep apnea Is this a current diagnosis for this admission?: Yes Summary: YOU per patient, although, it is unclear as to whether or not he has ever undergone a sleep study. Despite endorsing this history and multiple discussions with regard to use of BiPAP, the patient remained admittedly noncompliant. He is encouraged to reduce weight and follow up with primary care provider to discuss possible need for overnight sleep study. (5) Hypoxemia Is this a current diagnosis for this admission?: Yes Summary: Improved; secondary to acute bronchitis, morbid obesity, and YOU. Patient is now maintaining oxygen saturations greater than 92% on room air. (6) Cigarette smoker one half pack a day or less Is this a current diagnosis for this admission?: Yes Summary: Smoking cessation is encouraged. He is provided a prescription for NicoDerm at discharge. (7) Morbid obesity with BMI of 45.0-49.9, adult Is this a current diagnosis for this admission?: Yes (8) Noncompliance Is this a current diagnosis for this admission?: Yes - Additional Information Resuscitation Status: Full Code Discharge Diet: Diabetic, Other (Comments) Discharge Activity: Activity As Tolerated, Slowly Increase Activity Prescriptions: Enalapril Maleate [Vasotec 10 mg Tablet] 10 mg PO Q12 #60 tablet Famotidine [Pepcid 20 mg Tablet] 20 mg PO Q12 #60 tablet Fluticasone Propionate [Flonase Nasal [place] 50 Mcg/[place] 16 gm] 2 spray NASL Q12 #1 spray.pump Guaifenesin [Mucinex Sr 600 mg Tablet.sa] 600 mg PO Q12 #30 tablet.sa Ipratropium/Albuterol Sulfate [Duoneb 3 ml Ampul] 3 ml NEB RTQ6HP PRN #120 vial.neb PRN Reason: Levofloxacin [Levaquin 750 mg Tablet] 750 mg PO DAILY #5 tablet Lisinopril [Prinivil 5 mg Tablet] 5 mg PO DAILY #30 tablet Nicotine [Nicoderm 7 mg/24 Hr Transdermal Patch] 1 each TD QPM #14 patch.td24 Home Medications: Metformin HCl [Glucophage 500 mg Tablet] 1,000 mg PO BIDACBS 30 Days #120 tablet 08/22/17 Insulin Glargine,Hum.rec.anlog [Lantus] 50 units SQ QHS 11/20/17 Enalapril Maleate [Vasotec 10 mg Tablet] 10 mg PO Q12 #60 tablet 11/22/17 Famotidine [Pepcid 20 mg Tablet] 20 mg PO Q12 #60 tablet 11/22/17 Fluticasone Propionate [Flonase Nasal [place] 50 Mcg/[place] 16 gm] 2 spray NASL Q12 #1 spray.pump 11/22/17 Guaifenesin [Mucinex Sr 600 mg Tablet.sa] 600 mg PO Q12 #30 tablet.sa 11/22/17 Ipratropium/Albuterol Sulfate [Duoneb 3 ml Ampul] 3 ml NEB RTQ6HP PRN #120 vial.neb 11/22/17 Levofloxacin [Levaquin 750 mg Tablet] 750 mg PO DAILY #5 tablet 11/22/17 Lisinopril [Prinivil 5 mg Tablet] 5 mg PO DAILY #30 tablet 11/22/17 Nicotine [Nicoderm 7 mg/24 Hr Transdermal Patch] 1 each TD QPM #14 patch.td24 History of Present Illness History of Present Illness: Per H&P by Dr. Barnes: KIRK CHARLES is a 27 year old male with past medical history of morbid obesity, obstructive sleep apnea, seasonal allergies, diabetes, tobacco and noncompliance. Patient presents with 24 hours of nonproductive cough complaints of rhinorrhea, GERD and unknown blood sugars. He is developed subjective fevers prompting evaluation emergency room where he is found to have pulse oximetry of 88 on room air requiring supplemental oxygen despite several albuterol and Atrovent treatments. Chest x-ray is unremarkable , cardiac workup likewise. He is started on empiric antibiotics and referred to the hospitalist. Patient is admittedly noncompliant with medication and lifestyle. Unaware of regular medication use or dosages. Physical Exam Vital Signs: Temp Pulse Resp BP Pulse Ox 97.8 F 88 26 H 149/94 H 92 11/22/17 08:37 11/22/17 08:37 11/22/17 08:37 11/22/17 08:37 11/22/17 08:37 Pulse Oximeter Continuous Start: 11/20/17 02: 56 Freq: RTQ4 Status: Active Document 11/22/17 08:08 [facility] (Rec: 11/22/17 08:08 [facility] [email or web address]) Pulse Oximetry Assessment Oxygen Saturation (92-100) 90 Oxygen Delivery Method Room Air Fraction of Inspired Oxygen (FIO2) 21 Equipment Usage Equipment in Use Continuous SpO2 Machine # 8 Intake & Output 11/21/17 11/22/17 11/23/17 06:59 06:59 06:59 Intake Total 2533 Output Total 600 Balance 1933 Weight 160.3 kg General appearance: PRESENT: no acute distress, morbidly obese, well-developed, well-nourished. ABSENT: cooperative - Noncompliant with recommendation; refuses oxygen and BiPAP, refusing consistent carb diet (eating numerous fast food meals brought in by family in addition to diet from our kitchen.) Head exam: PRESENT: atraumatic, normocephalic Eye exam: PRESENT: conjunctiva pink, EOMI, PERRLA. ABSENT: scleral icterus Ear exam: PRESENT: normal external ear exam Mouth exam: PRESENT: moist, tongue midline Neck exam: ABSENT: carotid bruit, JVD, lymphadenopathy, thyromegaly Respiratory exam: PRESENT: decreased breath sounds - Bibasilar, rhonchi, symmetrical, tachypnea, wheezes - Occasional expiratory wheezing. ABSENT: rales Cardiovascular exam: PRESENT: RRR, +S1, +S2. ABSENT: diastolic murmur, rubs, systolic murmur Pulses: PRESENT: normal dorsalis pedis pul Vascular exam: PRESENT: normal capillary refill GI/Abdominal exam: PRESENT: normal bowel sounds, organolmegaly, soft, other - Difficult to assess secondary to body habitus. ABSENT: distended, guarding, mass, rebound, tenderness Rectal exam: PRESENT: deferred Extremities exam: PRESENT: full ROM. ABSENT: calf tenderness, clubbing, pedal edema Neurological exam: PRESENT: alert, awake, oriented to person, oriented to place , oriented to time, oriented to situation, CN II-XII grossly intact. ABSENT: motor sensory deficit Psychiatric exam: PRESENT: appropriate affect, normal mood. ABSENT: homicidal ideation, suicidal ideation Skin exam: PRESENT: dry, intact, warm. ABSENT: cyanosis, rash Results Laboratory Results: 11/22/17 05:17 11/22/17 05:17 11/22/17 11/22/17 05:17 05:17 WBC 8.0 RBC 4.68 Hgb 13.2 L Hct 39.5 MCV 84 MCH 28.3 MCHC 33.5 RDW 12.4 Plt Count 204 Sodium 142.1 Potassium 3.6 Chloride 105 Carbon Dioxide 25 Anion Gap 12 BUN 13 Creatinine 0.60 Est GFR ( Amer) > 60 Est GFR (Non-Af Amer) > 60 Glucose 278 H Calcium 8.6 Impressions: Chest X-Ray 11/19/17 00:00 IMPRESSION: Pulmonary vascular congestion. Chest CT 11/21/17 00:00 IMPRESSION: PROBABLE PLATELIKE ATELECTASIS IN THE LOWER LOBES. ILL-DEFINED GROUND-GLASS OPACITIES PRIMARILY IN THE RIGHT LUNG MAY BE DUE TO ATELECTASIS, INFECTION, OR INFLAMMATION/ PNEUMONITIS. DEVELOPING PULMONARY EDEMA PROBABLY LESS LIKELY. Qualifiers - * PATIENT BEING DISCHARGED WITH ANY OF THE FOLLOWING DIAGNOSIS: No Plan Discharge Plan: Discharge to home with self-care. Continue Levaquin to complete a 7 day antibiotic course. Nebulizer solution is provided; patient reports that his mother has a nebulizer machine and he did not require his own. Smoking cessation strongly encouraged. Follow-up with the [facility] as scheduled on 12/03/17.
== END 2017-11-22 09:55 | disposition home or self-care (01) | DRG 189 ==
LOC: ER 22:10 → EH 11-20 03:04 → 5 11-20 16:04 → OBSVTOIN 11-21 10:36
PROVIDERS: ADMIT Internal Medicine; ATTEND Internal Medicine
PROC: 5A09457 Assistance with Respiratory Ventilation, 24-96 Consecutive Hours, Continuous Positive Airway Pressure (ICD-10-PCS; principal; 2017-11-21)
DX: J96.01 Acute respiratory failure with hypoxia (principal); Z68.42 Body mass index [BMI] 45.0-49.9, adult; J20.9 Acute bronchitis, unspecified; F17.200 Nicotine dependence, unspecified, uncomplicated; E10.65 Type 1 diabetes mellitus with hyperglycemia; I10 Essential (primary) hypertension; G47.33 Obstructive sleep apnea (adult) (pediatric); F17.210 Nicotine dependence, cigarettes, uncomplicated; E66.01 Morbid (severe) obesity due to excess calories; K21.9 Gastro-esophageal reflux disease without esophagitis; E78.5 Hyperlipidemia, unspecified; Z90.49 Acquired absence of other specified parts of digestive tract; Z79.4 Long term (current) use of insulin; Z71.6 Tobacco abuse counseling; Z91.19 Patient's noncompliance with other medical treatment and regimen
CPT/HCPCS: 36415; 36600; 71046; 71250; 80048; 80053; 80307; 82803; 82962; 83036; 83880; 85025; 85027; 85379; 87070; 87077; 87205; 93005; 93010; 94640; 94660; 94668; 94762; 96365; 96366; 96367; 96372; 96375; 99285; G0378; J1644; J1815; J1956; J2930; J3475; J3480; J3490; J7620

== ENCOUNTER 2018-01-31 23:04 | Inpatient (IN) | payer SELFPAY ==
[2018-01-31] MEDS ORDERED: IPRATROPIUM/ALBUTEROL 0.5-2.5 MG/3 ML AMPUL NEB ONE (23:25)
[2018-01-31] MEDS ORDERED: METHYLPREDNISOLONE INJ 125 MG/2 ML SDV IV ONE (23:25)
--- NOTE | 2018-01-31 23:30 | ER Document Report ---
ED General - General Stated Complaint: SHORTNESS OF BREATH Time Seen by Provider: 01/31/18 23:20 Notes: Patient is a 27-year-old male with a history of asthma who presents with complaint of difficulty breathing. He says he has had some difficulty breathing for last 3 days productive of sputum. He does smoke cigarettes. He said today he was unable smoke cigarettes but said whenever he smoked marijuana it made him feel better and therefore he smoked marijuana tonight. He says after smoking 1 he went on to take the trash out and he became very short of breath and therefore called a months. A months given to do nebs which helped some but patient still very short of breath. He denies any recent fevers. No vomiting. No other complaints at this time. Patient has been admitted for asthma exacerbations in the past. When paramedics arrived his O2 saturation was 86%. TRAVEL OUTSIDE OF THE [place] IN LAST 30 DAYS: No - Related Data Allergies/Adverse Reactions: No Known Allergies Allergy (Verified 08/19/17 10:04) Past Medical History - Social History Smoking Status: Current Every Day Smoker Frequency of alcohol use: None Drug Abuse: Marijuana Family History: DM - Past Medical History Cardiac Medical History: Reports: Hx Hypercholesterolemia, Hx Hypertension Pulmonary Medical History: Reports: Hx Asthma, Hx Sleep Apnea Endocrine Medical History: Reports: Hx Diabetes Mellitus Type 2 Renal/ Medical History: Denies: Hx Peritoneal Dialysis Psychiatric Medical History: Denies: Hx Depression Past Surgical History: Reports: Hx Adenoidectomy, Hx Orthopedic Surgery - right hand, Hx Tonsillectomy - T/A - Immunizations Hx Diphtheria, Pertussis, Tetanus Vaccination: Yes Hx Pneumococcal Vaccination: 07/06/14 Review of Systems - Review of Systems Notes: My Normal Review Basic REVIEW OF SYSTEMS: CONSTITUTIONAL : Denies fever, chills, or sweats. Denies recent illness. EENT: Denies eye, ear, throat, or mouth pain or symptoms. Denies nasal or sinus congestion. RESPIRATORY: Wheezing. Difficulty breathing. GASTROINTESTINAL: Denies abdominal pain. Denies nausea, vomiting, or diarrhea. GENITOURINARY: Denies difficulty urinating, painful urination, burning, frequency, or blood in urine. MUSCULOSKELETAL: Denies neck or back pain or joint pain or swelling. SKIN: Denies rash or skin lesions. NEUROLOGICAL: Denies altered mental status or loss of consciousness. Denies headache. Denies weakness or paralysis or loss of use of either side. Denies problems with gait or speech. Denies sensory or motor loss. ALL OTHER SYSTEMS REVIEWED AND NEGATIVE. Physical Exam - Notes Notes: General Appearance: Well nourished, alert, cooperative, moderate acute distress , no obvious discomfort. He does have some tachypnea moderate distress however he is able to speak in 4-5 word sentences before having take another breath. She does little bit anxious pain. Vitals: reviewed, See vital signs table. Head: no swelling or tenderness to the head Eyes: PERRL, EOMI, Conjuctiva clear Mouth: No decreasd moisture Throat: No tonsillar inflammation, No airway obstruction, No lymphadenopathy Lungs: Diffuse wheezing, No rales, scattered rhonci, No accessory muscle use, failure air exchange bilaterally. Heart: Normal rate, Regular rythm, No murmur, no rub Abdomen: Normal BS, soft, No rigidity, No abdominal tenderness, No guarding, no rebound Extremities: strength 5/5 in all extremities, good pulses in all extremities, no swelling or tenderness in the extremities, no edema. Skin: warm, dry, appropriate color, no rash Neuro: speech clear, oriented x 3, normal affect, responds appropriately to questions. Course - Re-evaluation Re-evalutation: 02/01/18 02:46 Patient continues the BiPAP. He looks very well on the BiPAP. The nurse had taken him off the BiPAP to give him his breathing treatment on a half and he became hypoxic. I therefore placed him back on BiPAP. He is on the BiPAP he has no tachypnea he speaking full sentences and looks well. His lung roche still has some coarse sounds but is much improved in comparison to where he was when he first arrived. This time I do feel he requires admission. He does have pneumonia on chest x-ray. I have given Levaquin. I spoke with the hospitalist, Dr. Barnes, who agrees to admit the patient. Dictation of this chart was performed using voice recognition software; therefore, there may be some unintended grammatical errors. - Laboratory Result Diagrams: 02/01/18 01:13 02/01/18 01:13 Laboratory results interpreted by me: 02/01/18 02/01/18 01:13 01:13 WBC 11.5 H Hgb 13.4 L Glucose 139 H - EKG Interpretation by Me Additional EKG results interpreted by me: 01/31/18 23:41 EKG is reviewed and interpreted by me. EKG shows regular sinus tachycardia with a rate of [address] segment elevation or depression. MN interval, QRS duration, QTc intervals are within normal range. Old EKG for comparison is from November 20, 2017. Discharge - Discharge Clinical Impression: Hypoxemia Asthma with acute exacerbation in adult Qualifiers: Asthma severity: moderate Asthma persistence: persistent Qualified Code(s): J45.41 - Moderate persistent asthma with (acute) exacerbation Pneumonia Qualifiers: Pneumonia type: due to unspecified organism Laterality: right Lung location: lower lobe of lung Qualified Code(s): J18.1 - Lobar pneumonia, unspecified organism Condition: Stable Disposition: ADMITTED OBSERVATION Admitting Provider: Hospitalist Unit Admitted: Telemetry
--- NOTE | 2018-02-01 00:34 | RADIOLOGY REPORT (SQ) ---
EXAM DESCRIPTION: XR CHEST 1 VIEW COMPLETED DATE/TME: 01/31/2018 23:25 CLINICAL HISTORY: 27 years Male, dyspnea COMPARISON: None. NUMBER OF VIEWS/TECHNIQUE: 1/AP FINDINGS: Moderate lung volume, moderate patchy opacity of the right lower lung field normal cardiac silhouette, and intact bony thorax. IMPRESSION: Right lower lobar pneumonia.
[2018-02-01 01:31] LABS: ABSOLUTE BASOPHILS # (AUTO) 0.1 10^3/uL (0.0-0.2); ABSOLUTE EOSINOPHILS # (AUTO) 0.2 10^3/uL (0.0-0.6); ABSOLUTE LYMPHOCYTES (AUTO) 2.2 10^3/uL (0.5-4.7); ABSOLUTE MONOCYTES (AUTO) 0.8 10^3/uL (0.1-1.4); ABSOLUTE NEUT (AUTO) 8.2 10^3/uL (1.7-8.2); BASOPHILS % (AUTO) 1.1 % (0-2); EOSINOPHILS % (AUTO) 1.6 % (0-6); HEMATOCRIT 39.8 % (37.9-51.0); HEMOGLOBIN 13.4 g/dL (13.5-17.0); LYMPHOCYTES % (AUTO) 18.7 % (13-45); MEAN CORPUSCULAR HEMOGLOBIN 28.6 pg (27.0-33.4); MEAN CORPUSCULAR HGB CONC 33.7 g/dL (32.0-36.0); MEAN CORPUSCULAR VOLUME 85 fl (80-97); MONOCYTES % (AUTO) 7.1 % (3-13); PLATELET COUNT 273 10^3/uL (150-450); RED BLOOD COUNT 4.69 10^6/uL (4.35-5.55); RED CELL DISTRIBUTION WIDTH 12.9 % (11.5-14.0); SEGMENTED NEUTROPHILS % (AUTO) 71.5 % (42-78); TOTAL CELLS COUNTED % (AUTO) 100 %; WHITE BLOOD COUNT 11.5 10^3/uL (4.0-10.5)
[2018-02-01] MEDS ORDERED: ALBUTEROL SULFATE 0.083% NEB 2.5 MG/3 ML AMPUL NEB ONE (01:31)
[2018-02-01] MEDS: MAGNESIUM SULFATE/D5W 1 GM/100 ML RTUPB IV SCH ×4 (01:41→05:29)
[2018-02-01 01:44] LABS: ALANINE AMINOTRANSFERASE 32 U/L (21-72); ALKALINE PHOSPHATASE 72 U/L (38-126); ANION GAP 11 (5-19); ASPARTATE AMINO TRANSFERASE 22 U/L (17-59); BILIRUBIN,DIRECT 0.3 mg/dL (0.0-0.4); BILIRUBIN,TOTAL 0.4 mg/dL (0.2-1.3); BLOOD UREA NITROGEN 7 mg/dL (7-20); CALCIUM 9.4 mg/dL (8.4-10.2); CARBON DIOXIDE 26 mmol/L (22-30); CHLORIDE 107 mmol/L (98-107); GLUCOSE 139 mg/dL (75-110); SODIUM 143.8 mmol/L (137-145); TOTAL PROTEIN 6.7 g/dL (6.3-8.2)
[2018-02-01] MEDS ORDERED: LEVOFLOXACIN 750 MG/D5W RTU 750 MG/150 ML RTUPB IV ONE (02:03)
[2018-02-01] MEDS ORDERED: DEXTROSE 40% GEL 15 GM TUBE PO PRN ×2 (02:14)
[2018-02-01] MEDS ORDERED: GLUCAGON,HUMAN RECOMB 1 MG INJ IM PRN (02:14)
[2018-02-01] MEDS ORDERED: DEXTROSE 50%-WATER 25 GM/50 ML DISP.SYRIN IV PRN ×2 (02:14)
[2018-02-01] MEDS ORDERED: ACETAMINOPHEN 325 MG TABLET PO PRN (02:14)
[2018-02-01] MEDS ORDERED: GUAIFENESIN SYRP 200 MG/10 ML UDC PO PRN (02:14)
[2018-02-01] MEDS ORDERED: IPRATROPIUM/ALBUTEROL 0.5-2.5 MG/3 ML AMPUL NEB PRN (02:14)
[2018-02-01] MEDS ORDERED: ENALAPRIL MALEATE 10 MG TABLET PO ONE (02:30)
[2018-02-01] MEDS ORDERED: FAMOTIDINE 20 MG TABLET PO ONE (02:30)
--- NOTE | 2018-02-01 05:20 | PDOC H&P ---
History of Present Illness Admission Date/PCP: 02/01/18 02:25 Patient complains of: Shortness of breath and wheeze History of Present Illness: KIRK CHARLES is a 27 year old male with a past medical history of diabetes, morbid obesity, obstructive sleep apnea, asthma, tobacco dependence. Patient presents with 24 hours of shortness of breath, associated with wheeze and nonproductive cough. Patient states his symptoms usually worsen at night. Admits subjective fever, uncontrolled acid reflux, denies rhinorrhea or sore throat. In the emergency room he is found to be tachypneic, hypoxic and a chest x-ray with right lower lobe pneumonia. He started on empiric antibiotics , oxygen and BiPAP then referred to the hospitalist for admission. Past Medical History Cardiac Medical History: Reports: Hyperlipidema, Hypertension Pulmonary Medical History: Reports: Asthma, Bronchitis, Chronic Obstructive Pulmonary Disease (COPD), Sleep Apnea Endocrine Medical History: Reports: Diabetes Mellitus Type 2, Obesity Psychiatric Medical History: Reports: Substance Abuse, Tobacco Dependency Denies: Depression Past Surgical History Past Surgical History: Reports: Orthopedic Surgery - right hand, Tonsillectomy - T/A Social History Information Source: Patient, [facility] Lives with: Spouse/Significant other Smoking Status: Current Every Day Smoker Frequency of Alcohol Use: Social Hx Recreational Drug Use: No Drugs: Marijuana Hx Prescription Drug Abuse: No - Advance Directive Resuscitation Status: Full Code Family History Family History: DM Parental Family History Reviewed: Yes Children Family History Reviewed: Yes Sibling(s) Family History Reviewed.: Yes Medication/Allergy Home Medications: Metformin HCl [Glucophage 500 mg Tablet] 1,000 mg PO BIDACBS 30 Days #120 tablet 08/22/17 Insulin Glargine,Hum.rec.anlog [Lantus] 50 units SQ QHS 11/20/17 Enalapril Maleate [Vasotec 10 mg Tablet] 10 mg PO Q12 #60 tablet 11/22/17 Famotidine [Pepcid 20 mg Tablet] 20 mg PO Q12 #60 tablet 11/22/17 Fluticasone Propionate [Flonase Nasal Pawling 50 Mcg/Pawling 16 gm] 2 spray NASL Q12 #1 spray.pump 11/22/17 Guaifenesin [Mucinex Sr 600 mg Tablet.sa] 600 mg PO Q12 #30 tablet.sa 11/22/17 Ipratropium/Albuterol Sulfate [Duoneb 3 ml Ampul] [address] [facility] RTQ6HP PRN #120 vial.neb 11/22/17 Levofloxacin [Levaquin 750 mg Tablet] 750 mg PO DAILY #5 tablet 11/22/17 Lisinopril [Prinivil 5 mg Tablet] 5 mg PO DAILY #30 tablet 11/22/17 Nicotine [Nicoderm 7 mg/24 Hr Transdermal Patch] 1 each TD QPM #14 patch.[id number] Allergies/Adverse Reactions: No Known Allergies Allergy (Verified 08/19/17 10:04) Review of Systems Constitutional: PRESENT: as per HPI, chills, fatigue, fever(s), weight gain Eyes: ABSENT: visual disturbances Ears: ABSENT: hearing changes Cardiovascular: ABSENT: chest pain, dyspnea on exertion, edema, orthropnea, palpitations Respiratory: PRESENT: as per HPI, cough, dyspnea. ABSENT: hemoptysis, sputum Gastrointestinal: ABSENT: abdominal pain, constipation, diarrhea, hematemesis, hematochezia, nausea, vomiting Genitourinary: ABSENT: dysuria, hematuria Musculoskeletal: ABSENT: joint swelling Integumentary: ABSENT: rash, wounds Psychiatric: ABSENT: anxiety, depression, homidical ideation, suicidal ideation Endocrine: ABSENT: cold intolerance, heat intolerance, polydipsia, polyuria Hematologic/Lymphatic: ABSENT: easy bleeding, easy bruising Physical Exam Vital Signs: Temp Pulse Resp BP Pulse Ox 40 H 123/72 90 L 01/31/18 23:20 02/01/18 04:00 02/01/18 04:01 General appearance: PRESENT: cooperative, disheveled, morbidly obese, severe distress. ABSENT: hard of hearing Head exam: PRESENT: atraumatic, normocephalic Eye exam: PRESENT: conjunctiva pink, EOMI, PERRLA. ABSENT: scleral icterus Ear exam: PRESENT: normal external ear exam Mouth exam: PRESENT: moist, tongue midline Neck exam: ABSENT: carotid bruit, JVD, lymphadenopathy, thyromegaly Respiratory exam: PRESENT: accessory muscle use, crackles, prolonged expiratory phas, retraction, symmetrical, tachypnea, wheezes. ABSENT: rhonchi, stridor Cardiovascular exam: PRESENT: RRR. ABSENT: diastolic murmur, rubs, systolic murmur Pulses: PRESENT: normal dorsalis pedis pul Vascular exam: PRESENT: normal capillary refill GI/Abdominal exam: PRESENT: normal bowel sounds, soft. ABSENT: distended, guarding, mass, organolmegaly, rebound, tenderness Rectal exam: PRESENT: deferred Extremities exam: PRESENT: full ROM. ABSENT: calf tenderness, clubbing, pedal edema Neurological exam: PRESENT: alert, awake, oriented to person, oriented to place , oriented to time, oriented to situation, CN II-XII grossly intact. ABSENT: motor sensory deficit Psychiatric exam: PRESENT: appropriate affect, normal mood. ABSENT: homicidal ideation, suicidal ideation Skin exam: PRESENT: dry, intact, warm. ABSENT: cyanosis, rash Results Impressions: Chest X-Ray 01/31/18 23:25 IMPRESSION: Right lower lobar pneumonia. Assessment & Plan - Diagnosis (1) Asthma with acute exacerbation in adult Qualifiers: Asthma severity: moderate Asthma persistence: persistent Qualified Code(s ): J45.41 - Moderate persistent asthma with (acute) exacerbation Is this a current diagnosis for this admission?: Yes Plan: Complicated by pneumonia and tobacco dependence. Pneumonia care set, albuterol , Atrovent, incentive spirometry, peak flow eval, follow-up CBC (2) Pneumonia Qualifiers: Pneumonia type: due to unspecified organism Laterality: right Lung location: lower lobe of lung Qualified Code(s): J18.1 - Lobar pneumonia, unspecified organism Is this a current diagnosis for this admission?: Yes Plan: Pneumonia care set, empiric antibiotics, incentive spirometry. (3) Diabetes Is this a current diagnosis for this admission?: Yes Plan: Complicated by steroids, Humalog and outpatient regiment (4) Obstructive sleep apnea Is this a current diagnosis for this admission?: Yes Plan: BiPAP and supplemental oxygen. (5) Tobacco dependence Is this a current diagnosis for this admission?: Yes Plan: Tobacco Dependence patient received tobacco cessation counseling and offered nicotine replacement options
[2018-02-01] MEDS: HEPARIN SOD (PORCINE) 5,000 UNIT/ML 1 ML SYRINGE SUBCUT SCH ×3 (06:27→22:06)
[2018-02-01 06:33] LABS: URINE AMPHETAMINES SCREEN NEGATIVE; URINE BARBITURATES SCREEN NEGATIVE; URINE BENZODIAZEPINES SCREEN NEGATIVE; URINE COCAINE SCREEN NEGATIVE; URINE METHADONE SCREEN NEGATIVE; URINE PHENCYCLIDINE SCREEN NEGATIVE
[2018-02-01 08:08] LABS: URINE MARIJUANA (THC) SCREEN UNCONFIRMED POSITIVE
[2018-02-01] MEDS: IPRATROPIUM/ALBUTEROL 0.5-2.5 MG/3 ML AMPUL NEB SCH ×2 (08:09→13:29)
[2018-02-01] MEDS: FAMOTIDINE 20 MG TABLET PO SCH ×2 (09:57→22:06)
[2018-02-01] MEDS: METFORMIN HCL 500 MG TABLET PO SCH ×2 (09:57→17:20)
[2018-02-01] MEDS: INSULIN LISPRO 100 UNIT/ML 3 ML VIAL SUBCUT PRN ×3 (09:57→17:20)
--- NOTE | 2018-02-01 10:42 | EKG REPORT ---
SEVERITY:- BORDERLINE ECG - SINUS TACHYCARDIA WITH PACS [phone] BORDERLINE T WAVE ABNORMALITIES : Confirmed by: Eran Joseph MD 01-Feb-2018 10:41:20
[2018-02-01] MEDS: ENALAPRIL MALEATE 10 MG TABLET PO SCH ×2 (12:16→22:06)
--- NOTE | 2018-02-01 18:31 | Progress Note ---
Provider Note Provider Note: Patient seen on rounds this morning. Please see H&P from this morning for full assessment and plan. I have a long discussion with patient regarding COPD and his diabetes. Patient states she is noncompliant and nonadherent with his medical condition. Tells me that he does not use anything for his COPD/asthma. I believe this is more likely asthma than COPD. For his diabetes he also does not take any medicine and does not watch an appropriate diabetic diet. He tells me that he supposed to be on insulin and sometimes he does not take it due to no money and not being able to afford the medicine. I will try and reconcile his meds and optimize his asthma medications. He probably will need to touch base with our case management for further help with his medications.
[2018-02-01] MEDS ORDERED: HYDRALAZINE HCL INJ/PF 20 MG/1 ML SDV IV PRN (18:32)
[2018-02-01] MEDS: LEVALBUTEROL HCL NEB 1.25 MG/3 ML AMPUL NEB SCH (19:49)
[2018-02-01] MEDS: ACETYLCYSTEINE 20% SOLN 800 MG/4 ML VIAL.NEB IH SCH (19:49)
[2018-02-01] MEDS: LEVOFLOXACIN 750 MG/D5W RTU 750 MG/150 ML RTUPB IV SCH (22:06)
[2018-02-01] MEDS: INSULIN GLARGINE,HUM.REC.ANLOG 1,000 UNIT/10 ML UNIT SUBCUT SCH (22:06)
[2018-02-02] MEDS: LEVALBUTEROL HCL NEB 1.25 MG/3 ML AMPUL NEB SCH ×4 (02:03→19:51)
[2018-02-02 04:57] LABS: ABSOLUTE BASOPHILS # (AUTO) 0.1 10^3/uL (0.0-0.2); ABSOLUTE LYMPHOCYTES (AUTO) 2.2 10^3/uL (0.5-4.7); ABSOLUTE MONOCYTES (AUTO) 1.4 10^3/uL (0.1-1.4); ABSOLUTE NEUT (AUTO) 12.4 10^3/uL (1.7-8.2); BASOPHILS % (AUTO) 0.8 % (0-2); EOSINOPHILS % (AUTO) 0.2 % (0-6); HEMOGLOBIN 12.5 g/dL (13.5-17.0); LYMPHOCYTES % (AUTO) 13.7 % (13-45); MEAN CORPUSCULAR HEMOGLOBIN 27.8 pg (27.0-33.4); MEAN CORPUSCULAR VOLUME 84 fl (80-97); MONOCYTES % (AUTO) 8.9 % (3-13); PLATELET COUNT 245 10^3/uL (150-450); RED BLOOD COUNT 4.51 10^6/uL (4.35-5.55); RED CELL DISTRIBUTION WIDTH 12.8 % (11.5-14.0); SEGMENTED NEUTROPHILS % (AUTO) 76.4 % (42-78); TOTAL CELLS COUNTED % (AUTO) 100 %; WHITE BLOOD COUNT 16.3 10^3/uL (4.0-10.5)
[2018-02-02] MEDS: HEPARIN SOD (PORCINE) 5,000 UNIT/ML 1 ML SYRINGE SUBCUT SCH ×3 (06:28→22:07)
[2018-02-02 06:44] LABS: ABSOLUTE BASOPHILS # (AUTO) 0.1 10^3/uL (0.0-0.2); ABSOLUTE LYMPHOCYTES (AUTO) 2.4 10^3/uL (0.5-4.7); ABSOLUTE MONOCYTES (AUTO) 1.2 10^3/uL (0.1-1.4); ABSOLUTE NEUT (AUTO) 10.7 10^3/uL (1.7-8.2); BASOPHILS % (AUTO) 0.9 % (0-2); EOSINOPHILS % (AUTO) 0.1 % (0-6); HEMATOCRIT 36.3 % (37.9-51.0); HEMOGLOBIN 12.2 g/dL (13.5-17.0); LYMPHOCYTES % (AUTO) 16.5 % (13-45); MEAN CORPUSCULAR HEMOGLOBIN 28.4 pg (27.0-33.4); MEAN CORPUSCULAR HGB CONC 33.7 g/dL (32.0-36.0); MEAN CORPUSCULAR VOLUME 84 fl (80-97); MONOCYTES % (AUTO) 8.2 % (3-13); PLATELET COUNT 253 10^3/uL (150-450); RED BLOOD COUNT 4.31 10^6/uL (4.35-5.55); RED CELL DISTRIBUTION WIDTH 12.7 % (11.5-14.0); SEGMENTED NEUTROPHILS % (AUTO) 74.3 % (42-78); TOTAL CELLS COUNTED % (AUTO) 100 %; WHITE BLOOD COUNT 14.5 10^3/uL (4.0-10.5)
[2018-02-02 07:16] LABS: ANION GAP 14 (5-19); BLOOD UREA NITROGEN 12 mg/dL (7-20); CARBON DIOXIDE 20 mmol/L (22-30); CHLORIDE 116 mmol/L (98-107); GLUCOSE 258 mg/dL (75-110); POTASSIUM 4.3 mmol/L (3.6-5.0); SODIUM 150.2 mmol/L (137-145)
[2018-02-02] MEDS: ACETYLCYSTEINE 20% SOLN 800 MG/4 ML VIAL.NEB IH SCH ×2 (07:53→19:51)
[2018-02-02] MEDS: INSULIN LISPRO 100 UNIT/ML 3 ML VIAL SUBCUT PRN (08:40)
[2018-02-02] MEDS: METFORMIN HCL 500 MG TABLET PO SCH ×2 (08:41→16:15)
[2018-02-02] MEDS: ENALAPRIL MALEATE 10 MG TABLET PO SCH (10:20)
[2018-02-02] MEDS: FAMOTIDINE 20 MG TABLET PO SCH ×2 (10:20→22:07)
--- NOTE | 2018-02-02 15:02 | PDOC PROGRESS REPORT ---
Subjective Progress Note for:: 02/02/18 - seen on rounds this morning Subjective:: patient has no acute complaints. asks me this morning- "why can't i eat cheese , i tried to order it and they said no". i told him he's on a cardiac/diabetic diet and hence he can't eat unhealthy Reason For Visit: COPD EXACERBATION BRONCHITIS Physical Exam Vital Signs: Temp Pulse Resp BP Pulse Ox 98.6 F 96 18 154/89 H 95 02/02/18 11:14 02/02/18 13:52 02/02/18 13:52 02/02/18 11:14 02/02/18 13:52 Intake & Output 02/01/18 02/02/18 02/03/18 06:59 06:59 06:59 Intake Total 100 1461 Output Total 320 Balance -220 1461 Weight 360 lb 7.292 oz 361 lb 5.402 oz General appearance: PRESENT: no acute distress, morbidly obese Head exam: PRESENT: atraumatic, normocephalic Eye exam: PRESENT: EOMI. ABSENT: conjunctival injection, scleral icterus Ear exam: PRESENT: normal external ear exam Mouth exam: PRESENT: moist, neck supple Neck exam: PRESENT: full ROM. ABSENT: JVD, tenderness Respiratory exam: PRESENT: decreased breath sounds - bilaterally decreased breath sounds in both lung roche- scattered expiratory wheezing, symmetrical Cardiovascular exam: PRESENT: RRR, +S1, +S2 Pulses: PRESENT: +2 pedal pulses bilateral GI/Abdominal exam: PRESENT: normal bowel sounds, soft. ABSENT: tenderness Extremities exam: ABSENT: joint swelling, pedal edema Musculoskeletal exam: PRESENT: full ROM Neurological exam: PRESENT: alert, awake, oriented to person, oriented to place , oriented to time, CN II-XII grossly intact Skin exam: PRESENT: dry, warm Results Laboratory Results: 02/02/18 06:30 02/02/18 04:09 02/02/18 02/02/18 02/02/18 04:09 04:09 06:10 WBC Cancelled Cancelled RBC Cancelled Cancelled Hgb Cancelled Cancelled Hct Cancelled Cancelled MCV Cancelled Cancelled MCH Cancelled Cancelled MCHC Cancelled Cancelled RDW Cancelled Cancelled Plt Count Cancelled Cancelled Seg Neutrophils % Cancelled Cancelled Lymphocytes % Cancelled Cancelled Monocytes % Cancelled Cancelled Eosinophils % Cancelled Cancelled Basophils % Cancelled Cancelled Absolute Neutrophils Cancelled Cancelled Absolute Lymphocytes Cancelled Cancelled Absolute Monocytes Cancelled Cancelled Absolute Eosinophils Cancelled Cancelled Absolute Basophils Cancelled Cancelled Sodium 150.2 H Potassium 4.3 Chloride 116 H Carbon Dioxide 20 L Anion Gap 14 BUN 12 Creatinine 0.72 Est GFR ( Amer) > 60 Est GFR (Non-Af Amer) > 60 Glucose 258 H Calcium 10.0 02/02/18 06:30 WBC 14.5 H RBC 4.31 L Hgb 12.2 L Hct 36.3 L MCV 84 MCH 28.4 MCHC 33.7 RDW 12.7 Plt Count 253 Seg Neutrophils % 74.3 Lymphocytes % 16.5 Monocytes % 8.2 Eosinophils % 0.1 Basophils % 0.9 Absolute Neutrophils 10.7 H Absolute Lymphocytes 2.4 Absolute Monocytes 1.2 Absolute Eosinophils 0.0 Absolute Basophils 0.1 Sodium Potassium Chloride Carbon Dioxide Anion Gap BUN Creatinine Est GFR ( Amer) Est GFR (Non-Af Amer) Glucose Calcium Impressions: Chest X-Ray 01/31/18 23:25 IMPRESSION: Right lower lobar pneumonia. Assessment & Plan - Diagnosis (1) Asthma with acute exacerbation in adult Qualifiers: Asthma severity: moderate Asthma persistence: persistent Qualified Code(s ): J45.41 - Moderate persistent asthma with (acute) exacerbation Is this a current diagnosis for this admission?: Yes (2) Tobacco dependence Is this a current diagnosis for this admission?: Yes (3) Obstructive sleep apnea Is this a current diagnosis for this admission?: Yes - Time Time Spent with patient: 15-24 minutes - Plan Summary Plan Summary: Patient has no acute complaints this morning. Asthma exacerbation-Currently is on Xopenex every 6 hours with DuoNeb as needed. He was also started on Levaquin for suspected asthma related infection. We will continue with his Mucomyst twice a day and Robitussin as needed. He is currently not on any prednisone and saturating well on room air. We will continue with his Levaquin at this time and hopefully can go home on p.o. antibiotics. Diabetes-he tells me that at home he supposed to be on Lantus 35 units twice daily but he does not really take his medications as directed. We have started him on 15 units of Lantus at nighttime only. Also he is on insulin sliding scale. Hypertension-according to patient he does not really take any medicine at home but his systolic blood pressures have been in the 150 range. He was started on enalapril in the hospital but I will switch him to lisinopril which may be beneficial for his kidneys given his diabetes. I will start him on lisinopril 20 mg daily and see how he does. He may also benefit from hydrochlorothiazide so I will add 12.5 mg to his regimen today. Although I am making all these changes I am not sure he will take his medications after discharge. He is a very noncompliant and nonadherent patient and I have spoken to him about this multiple times.
[2018-02-02] MEDS ORDERED: LISINOPRIL 10 MG TABLET PO ONE (16:00)
[2018-02-02] MEDS ORDERED: HYDROCHLOROTHIAZIDE 12.5 MG TABLET PO ONE (16:30)
[2018-02-02] MEDS: INSULIN GLARGINE,HUM.REC.ANLOG 1,000 UNIT/10 ML UNIT SUBCUT SCH (22:07)
[2018-02-02] MEDS: LEVOFLOXACIN 750 MG/D5W RTU 750 MG/150 ML RTUPB IV SCH (22:07)
[2018-02-03] MEDS: LEVALBUTEROL HCL NEB 1.25 MG/3 ML AMPUL NEB SCH ×2 (02:06→07:59)
[2018-02-03] MEDS: HEPARIN SOD (PORCINE) 5,000 UNIT/ML 1 ML SYRINGE SUBCUT SCH (06:34)
[2018-02-03] MEDS: ACETYLCYSTEINE 20% SOLN 800 MG/4 ML VIAL.NEB IH SCH (07:59)
[2018-02-03] MEDS ORDERED: HYDROCHLOROTHIAZIDE 12.5 MG TABLET PO SCH (08:00)
[2018-02-03] MEDS ORDERED: LISINOPRIL 10 MG TABLET PO SCH (10:00)
[2018-02-03] MEDS: METFORMIN HCL 500 MG TABLET PO SCH (10:54)
[2018-02-03] MEDS: FAMOTIDINE 20 MG TABLET PO SCH (10:54)
[2018-02-03 12:26] VITALS: BP 159/81
[2018-02-03] MEDS ORDERED: HYDRALAZINE HCL INJ/PF 20 MG/1 ML SDV IV PRN (12:30)
--- NOTE | 2018-02-03 15:14 | PDOC DISCHARGE SUMMARY ---
General - Admit/Disc Date/PCP Admission Date/Primary Care Provider: 02/01/18 02:25 Discharge Date: 02/03/18 - Seen on rounds this morning - Discharge Diagnosis (1) Asthma with acute exacerbation in adult Is this a current diagnosis for this admission?: Yes (2) Tobacco dependence Is this a current diagnosis for this admission?: Yes (3) Obstructive sleep apnea Is this a current diagnosis for this admission?: Yes - Additional Information Resuscitation Status: Full Code Prescriptions: Hydrochlorothiazide [Hydrodiuril 12.5 mg Capsule] 12.5 mg PO QAM #30 capsule Ipratropium/Albuterol Sulfate [Duoneb 3 ml Ampul] 3 ml NEB RTQ4HP PRN #100 vial.neb PRN Reason: Levofloxacin [Levaquin 500 mg Tablet] 500 mg PO DAILY #5 tablet Lisinopril [Prinivil 10 mg Tablet] 20 mg PO DAILY 30 Days #60 tablet Home Medications: Insulin Glargine,Hum.rec.anlog [Lantus Insulin 100 Unit/mL] 35 unit SUBCUT Q12 02/01/18 Metformin HCl [Glucophage] 1,000 mg PO BIDACBS 02/01/18 Hydrochlorothiazide [Hydrodiuril 12.5 mg Capsule] 12.5 mg PO QAM #30 capsule 04/15 Insulin Glargine,Hum.rec.anlog [Lantus Insulin 100 Unit/1 ml 10 ml] 50 unit SUBCUT QHS unit 02/03/18 Insulin Lispro [Humalog Insulin (Lispro) 100 unit/mL] 0 - 12 unit SUBCUT ACP PRN unit 02/03/18 Ipratropium/Albuterol Sulfate [Duoneb 3 ml Ampul] 3 ml NEB RTQ4HP PRN #100 vial.neb 02/03/18 Levofloxacin [Levaquin 500 mg Tablet] 500 mg PO DAILY #5 tablet 02/03/18 Lisinopril [Prinivil 10 mg Tablet] 20 mg PO DAILY 30 Days #60 tablet 02/03/18 Metformin HCl [Glucophage 500 mg Tablet] 1,000 mg PO BIDACBS tablet 02/03/18 History of Present Illness Patient complains of: Shortness of breath History of Present Illness: KIRK CHARLES is a 27 year old male who was admitted for asthma exacerbation. Please see initial physical for full assessment and plan Hospital Course Hospital Course: After admission to the hospital he was started on Levaquin and nebulizer treatments. His blood pressure was also uncontrolled and hence he was started on p.o. antihypertensives. He is also noncompliant diabetic and his Lantus was resumed. Over the next day his breathing improved and he was no longer requiring oxygen. He did require use of BiPAP overnight since he most likely has sleep apnea. I discussed with him regarding this matter and that he needs a sleep study to be qualified for YOU. He understands and verbalized understanding of the situation. On 02/03/18 patient requested to be discharged. He even told while the nurses that he will want to leave AGAINST MEDICAL ADVICE if he is not discharged today. I went to talk to him and he told me he never said that. When I mentioned to him about staying on the day he was not happy about it. He wanted to know if he can go home today and requested being discharged today. I discussed about his asthma and exacerbation-discussed about medication compliance and adherence. He tells me that he has nebulizer machine but does not have the albuterol in it. I told him I can prescribe that. We also discussed about he has hypertension for which I started him on lisinopril and hydrochlorothiazide. I told him he must take his blood pressure daily and monitor it at home. I told him if his blood pressure systolic is greater than 160 or less than 90 he should call his primary care doctor and discuss about his medications. I had a long discussion about his diabetes and how important is to take his medications on time. I discussed about checking his sugars daily at least 3-4 times. He tells me that he will do it. I told him that he is to follow-up with his primary doctor and have regular checkups. I have talked about diet and lifestyle modification-about losing weight. He states he understands and he verbalized understanding. I discharged him on Levaquin daily for 5 days. Hydrochlorothiazide and lisinopril for 30 day supply and DuoNeb refills. Physical Exam Vital Signs: Temp Pulse Resp BP Pulse Ox 98.5 F 63 20 159/81 H 94 02/03/18 03:41 02/03/18 08:00 02/03/18 08:00 02/03/18 03:41 02/03/18 08:00 Intake & Output 02/02/18 02/03/18 02/04/18 06:59 06:59 06:59 Intake Total 1461 2219 Balance 1461 2219 Weight 361 lb 5.402 oz 360 lb 3.765 oz General appearance: PRESENT: no acute distress, morbidly obese Eye exam: PRESENT: EOMI. ABSENT: conjunctival injection, scleral icterus Ear exam: PRESENT: normal external ear exam Mouth exam: PRESENT: moist, neck supple Neck exam: PRESENT: full ROM. ABSENT: JVD, tenderness Respiratory exam: PRESENT: decreased breath sounds - Bilaterally mostly at the bases with scattered expiratory wheezing in the upper lung roche, symmetrical Cardiovascular exam: PRESENT: RRR, +S1, +S2 Pulses: PRESENT: +2 pedal pulses bilateral Vascular exam: PRESENT: normal capillary refill GI/Abdominal exam: PRESENT: normal bowel sounds, soft. ABSENT: tenderness Extremities exam: ABSENT: joint swelling, pedal edema Neurological exam: PRESENT: alert, awake, oriented to person, oriented to place , oriented to time, oriented to situation, CN II-XII grossly intact Skin exam: PRESENT: dry, warm Results Laboratory Results: 02/02/18 06:30 02/02/18 04:09 Impressions: Chest X-Ray 01/31/18 23:25 IMPRESSION: Right lower lobar pneumonia. Qualifiers - * PATIENT BEING DISCHARGED WITH ANY OF THE FOLLOWING DIAGNOSIS: No Plan Time Spent: Less than 30 Minutes
== END 2018-02-03 12:46 | disposition home or self-care (01) | DRG 202 ==
LOC: ER 23:04 → OBSVTOIN 02-01 02:25 → EH 02-01 02:25 → 5 02-01 05:25
PROVIDERS: ADMIT Internal Medicine; ATTEND Internal Medicine
DX: J45.41 Moderate persistent asthma with (acute) exacerbation (principal); J18.9 Pneumonia, unspecified organism; Z68.42 Body mass index [BMI] 45.0-49.9, adult; E78.00 Pure hypercholesterolemia, unspecified; I10 Essential (primary) hypertension; E11.9 Type 2 diabetes mellitus without complications; E66.01 Morbid (severe) obesity due to excess calories; G47.33 Obstructive sleep apnea (adult) (pediatric); F12.90 Cannabis use, unspecified, uncomplicated; F17.210 Nicotine dependence, cigarettes, uncomplicated; Z79.84 Long term (current) use of oral hypoglycemic drugs; Z79.4 Long term (current) use of insulin; Z79.899 Other long term (current) drug therapy; Z91.120 Patient's intentional underdosing of medication regimen due to financial hardship
CPT/HCPCS: 36415; 71045; 80048; 80053; 80307; 82962; 85025; 93005; 93010; 94640; 94660; 94667; 94668; 94799; 96365; 96366; 96367; 96375; 99285; J1644; J1815; J1956; J2930; J3475; J3490; J7620

== ENCOUNTER 2018-06-09 20:28 | Emergency (ER) | payer SELFPAY ==
[2018-06-09 20:41] VITALS: BP 173/101
[2018-06-09] MEDS ORDERED: IBUPROFEN 800 MG TABLET PO ONE (22:12)
[2018-06-09] MEDS ORDERED: PENICILLIN V POTASSIUM 500 MG TABLET PO ONE (22:12)
--- NOTE | 2018-06-09 22:15 | ER Document Report ---
ED Oral Problem - General Chief Complaint: Toothache Stated Complaint: TOOTH PAIN Time Seen by Provider: 06/09/18 21:48 Mode of Arrival: Ambulatory Information source: Patient Notes: 27-year-old male presented to ED for complaint of pain to the jaw times 2 days. No swelling or redness to the right lower jaw. He states he has a chipped tooth there was previously crown but now it has a hole in it hurts. Patient is alert and oriented respirations regular and unlabored speaking in full sentences walk only with a even steady gait. TRAVEL OUTSIDE OF THE [place] IN LAST 30 DAYS: No - HPI Patient complains to provider of: Toothache Onset: Other - 2 days Onset: Gradual Quality of pain: Sharp, Throbbing Severity: Moderate Pain Level: 3 Associated symptoms: Toothache Worsened by: Cold Similar symptoms previously: Yes Recently seen / treated by doctor/dentist: No - Related Data Allergies/Adverse Reactions: No Known Allergies Allergy (Verified 08/19/17 10:04) Past Medical History - General Information source: Patient - Social History Smoking Status: Current Every Day Smoker Cigarette use (# per day): Yes - 1/2 pack/day Chew tobacco use (# tins/day): No Smoking Education Provided: Yes - 4 minutes Frequency of alcohol use: Social Drug Abuse: None Lives with: Spouse/Significant other Family History: DM Patient has suicidal ideation: No Patient has homicidal ideation: No - Past Medical History Cardiac Medical History: Reports: Hx Hypercholesterolemia, Hx Hypertension Pulmonary Medical History: Reports: Hx Asthma, Hx Bronchitis, Hx COPD, Hx Sleep Apnea EENT Medical History: Reports: None Endocrine Medical History: Reports: Hx Diabetes Mellitus Type 2 Renal/ Medical History: Reports: None Malignancy Medical History: Reports None GI Medical History: Reports: None Musculoskeletal Medical History: Reports Hx Musculoskeletal Trauma Psychiatric Medical History: Reports: None Traumatic Medical History: Reports: Hx Fractures - Boxers Infectious Medical History: Reports: None Past Surgical History: Reports: Hx Adenoidectomy, Hx Orthopedic Surgery - right hand, Hx Tonsillectomy - T/A - Immunizations Hx Diphtheria, Pertussis, Tetanus Vaccination: Yes Hx Pneumococcal Vaccination: 07/06/14 Review of Systems - Review of Systems Notes: REVIEW OF SYSTEMS: CONSTITUTIONAL : Denies fever, chills, or sweats. Denies recent illness. EENT: Denies eye, ear, throat, or mouth pain or symptoms. Denies nasal or sinus congestion or discharge. Denies throat, tongue, or mouth swelling or difficulty swallowing. Complaint of dental pain to tooth #31 CARDIOVASCULAR: Denies chest pain. Denies palpitations or racing or irregular heart beat. Denies ankle edema. RESPIRATORY: Denies cough, cold, or chest congestion. Denies shortness of breath, difficulty breathing, or wheezing. GASTROINTESTINAL: Denies abdominal pain or distention. Denies nausea, vomiting , or diarrhea. Denies blood in vomitus, stools, or per rectum. Denies black, tarry stools. Denies constipation. GENITOURINARY: Denies difficulty urinating, painful urination, burning, frequency, blood in urine, or discharge. MUSCULOSKELETAL: Denies back or neck pain or stiffness. Denies joint pain or swelling. SKIN: Denies rash, lesions or sores. HEMATOLOGIC : Denies easy bruising or bleeding. LYMPHATIC: Denies swollen, enlarged glands. NEUROLOGICAL: Denies confusion or altered mental status. Denies passing out or loss of consciousness. Denies dizziness or lightheadedness. Denies headache. Denies weakness or paralysis or loss of use of either side. Denies problems with gait or speech. Denies sensory loss, numbness, or tingling. Denies seizures. PSYCHIATRIC: Denies anxiety or stress. Denies depression, suicidal ideation, or homicidal ideation. ALL OTHER SYSTEMS REVIEWED AND NEGATIVE. Dictation was performed using [employer] recognition software PHYSICAL EXAMINATION: GENERAL: Well-appearing, well-nourished and in no acute distress. HEAD: Atraumatic, normocephalic. EYES: Pupils equal round and reactive to light, extraocular movements intact, sclera anicteric, conjunctiva are normal. ENT: Nares patent, oropharynx clear without exudates. Moist mucous membranes. Chipped tooth to tooth #31 minimal redness and inflammation to the gingiva NECK: Normal range of motion, supple without lymphadenopathy LUNGS: Breath sounds clear to auscultation bilaterally and equal. No wheezes rales or rhonchi. HEART: Regular rate and rhythm without murmurs ABDOMEN: Soft, nontender, nondistended abdomen. No guarding, no rebound. No masses appreciated. Musculoskeletal: Normal range of motion, no pitting or edema. No cyanosis. NEUROLOGICAL: Cranial nerves grossly intact. Normal speech, normal gait. Normal sensory, motor exams PSYCH: Normal mood, normal affect. SKIN: Warm, Dry, normal turgor, no rashes or lesions noted. Physical Exam - Vital signs Vitals: Temp Pulse Resp BP Pulse Ox 98.5 F 114 H 20 173/101 H 96 06/09/18 20:39 06/09/18 20:39 06/09/18 20:39 06/09/18 20:39 06/09/18 20:39 Course - Vital Signs Vital signs: Temp Pulse Resp BP Pulse Ox 98.5 F 114 H 20 173/101 H 96 06/09/18 20:39 06/09/18 20:39 06/09/18 20:39 06/09/18 20:39 06/09/18 20:39 Discharge - Discharge Clinical Impression: Pain due to dental caries Condition: Stable Disposition: HOME, SELF-CARE Instructions: Use of Hics-Obe-Oxtxrdn Ibuprofen ([facility]) Additional Instructions: TOOTHACHE: Your pain is due to dental decay. The tooth must be repaired in order for you to feel better. You will, therefore, be referred to a dentist. We do not have dentists on the staff at [facility]. Severe swelling or drainage around a tooth usually means a dental abscess. This also requires evaluation and treatment by the dentist, but antibiotics may be prescribed while awaiting dental treatment. You should be rechecked immediately if you develop major swelling of the face, increasing pain, a lump in the jaw or gums, headache, difficulty swallowing, or fever. PENICILLIN V K: You have been given a prescription for Penicillin VK. Your physician has determined that this is the best antibiotic for your condition. Pen VK can be taken with meals, however more of the antibiotic gets into the bloodstream if it's taken on an empty stomach. Penicillin usually has no side effects. However, allergy to penicillins is common. If you have had an allergic reaction to any drug of the penicillin family, you should never take any other penicillin. Notify your doctor at once if you develop hives, itching, swelling, faintness, or shortness of breath. Acetaminophen Acetaminophen may be taken for pain relief or fever control. It's much safer than aspirin, offering a wider range of "safe" dosages. It is safe during . Some brand names are Tylenol, Panadol, Datril, Anacin 3, Tempra, and Liquiprin. Acetaminophen can be repeated every four hours. The following are maximum recommended dosages: WEIGHT Dose Drops Elixir Chewable( 80mg) (LBS.) drprs=droppers tsp=teaspoon 6 40 mg .4 ml (1/2) 6-11 80 mg .8 ml (full) 1/2 tsp 1 tab 12-16 120 mg 1 1/2 drprs 3/4 tsp 1 1/2 tabs 17-23 160 mg 2 drprs 1 tsp 2 tabs 24-30 240 mg 3 drprs 1 1/2 tsp 3 tabs 30-35 320 mg 2 tsp 4 tabs 36-41 360 mg 2 1/4 tsp 4 1 /2 tabs 42-47 400 mg 2 1/2 tsp 5 tabs 48-53 480 mg 3 tsp 6 tabs 54-59 520 mg 3 1/4 tsp 6 1 /2 tabs 60-64 560 mg 3 1/2 tsp 7 tabs 65-70 600 mg 3 3/4 tsp 7 1 /2 tabs 71-76 640 mg 4 tsp 8 tabs 77-82 720 mg 4 1/2 tsp 9 tabs 83-88 800 mg 5 tsp 10 tabs >89 pounds or adults 650 mg to 900 mg Acetaminophen can be repeated every four hours. Maximum daily dose not to exceed 4000 mg. These maximum recommended dosages are slightly higher than the dosages written on the product container, but these dosages are very safe and well below the toxic dosage for acetaminophen. FOLLOW-UP CARE: You have been referred for follow-up care to the dentists listed below. Call the dentists office for an appointment as you were instructed or within the next two days. If you experience worsening or a significant change in your symptoms, notify the physician immediately or return to the Emergency Department at any time for re-evaluation. [facility] [address], [place] [facility] [address] [place] [address] [facility] [address] [facility]. [facility] [address] [place] [facility]. [facility] [address] [facility]. [email or web address] [address] [place] [address] Saturday- 8:00am to 5:00 pm Will see patients from other white hospital. Charges based on income and family size and accepts Medicare, Medicaid, and Insurances Will pull molars [facility] [place] [address] Hours of Operation 8:00 am - 4:30 pm weekdays The following dental offices accept Medicaid: [facility] Dr. Randall Dr. Al Dr. Montemayor Dr. Mckeon [place], [place], and [facility] oral surgery Dr. Mcguire ([place]) Dr. Lea ([place]) [facility] Drs. Parra and See ([place]) Dr. Bell ([place]) [facility] Dr. Wyman ([place]) Drs. Us and ([place]) Medicaid Care Line Prescriptions: Penicillin V Potassium [Penicillin Vk 500 mg Tablet] 500 mg PO BID #20 tablet Forms: Elevated Blood Pressure, Smoking Cessation Education
== END 2018-06-09 22:25 | disposition home or self-care (01) ==
LOC: ER 20:28
DX: K02.9 Dental caries, unspecified (principal); K08.89 Other specified disorders of teeth and supporting structures; I10 Essential (primary) hypertension; J44.9 Chronic obstructive pulmonary disease, unspecified; F17.210 Nicotine dependence, cigarettes, uncomplicated; Z71.6 Tobacco abuse counseling; E11.9 Type 2 diabetes mellitus without complications
CPT/HCPCS: 99282; 99406

== ENCOUNTER 2019-03-03 09:14 | Emergency (ER) | payer SELFPAY ==
--- NOTE | 2019-03-03 09:33 | ER Document Report ---
ED Medical Screen (RME) - General Chief Complaint: Breathing Difficulty Stated Complaint: COUGH,CONGESTION,SHORT OF BREATH Time Seen by Provider: 03/03/19 09:28 Mode of Arrival: Ambulatory Information source: Patient Notes: Patient is a 28-year-old male with past medical history of asthma and diabetes presenting to the emergency department chief complaint of cough and shortness of breath. Patient reports symptoms started 3 days ago. He denies any fever. Exam: Expiratory wheezes noted to the right upper lung field. I have greeted and performed a rapid initial assessment of this patient. A comprehensive ED assessment and evaluation of the patient, analysis of test results and completion of the medical decision making process will be conducted by additional ED providers. I have specifically instructed the patient or family members with the patient to immediately return to any nursing staff should anything change in the patient's condition or with their chief complaint. This medical record was dictated with voice recognizing software. There may be grammatical, syntax errors that are unintended. TRAVEL OUTSIDE OF THE [place] IN LAST 30 DAYS: No - Related Data Allergies/Adverse Reactions: No Known Allergies Allergy (Verified 08/19/17 10:04) Past Medical History - Social History Frequency of alcohol use: None Drug Abuse: None - Past Medical History Cardiac Medical History: Reports: Hx Hypercholesterolemia, Hx Hypertension Pulmonary Medical History: Reports: Hx Asthma, Hx Bronchitis, Hx COPD, Hx Pneumonia, Hx Sleep Apnea Endocrine Medical History: Reports: Hx Diabetes Mellitus Type 2 Renal/ Medical History: Denies: Hx Peritoneal Dialysis Musculoskeltal Medical History: Reports Hx Musculoskeletal Trauma Psychiatric Medical History: Denies: Hx Depression Traumatic Medical History: Reports: Hx Fractures - Boxers Past Surgical History: Reports: Hx Adenoidectomy, Hx Orthopedic Surgery - right hand, Hx Tonsillectomy - T/A - Immunizations Hx Diphtheria, Pertussis, Tetanus Vaccination: Yes History of Influenza Vaccine for 04/2017 - 09/2017 Season: Unknown Physical Exam - Vital signs Vitals: Temp Pulse Resp BP Pulse Ox 98.1 F 102 H 16 174/93 H 95 03/03/19 09:19 03/03/19 09:19 03/03/19 09:19 03/03/19 09:19 03/03/19 09:19 Course - Vital Signs Vital signs: Temp Pulse Resp BP Pulse Ox 98.1 F 102 H 16 174/93 H 95 03/03/19 09:19 03/03/19 09:19 03/03/19 09:19 03/03/19 09:19 03/03/19 09:19
[2019-03-03] MEDS ORDERED: IPRATROPIUM/ALBUTEROL 0.5-2.5 MG/3 ML AMPUL NEB ONE (09:34)
[2019-03-03 10:08] LABS: ABSOLUTE BASOPHILS # (AUTO) 0.1 10^3/uL (0.0-0.2); ABSOLUTE EOSINOPHILS # (AUTO) 0.3 10^3/uL (0.0-0.6); ABSOLUTE LYMPHOCYTES (AUTO) 2.3 10^3/uL (0.5-4.7); ABSOLUTE MONOCYTES (AUTO) 0.5 10^3/uL (0.1-1.4); ABSOLUTE NEUT (AUTO) 4.7 10^3/uL (1.7-8.2); BASOPHILS % (AUTO) 1.1 % (0-2); EOSINOPHILS % (AUTO) 3.6 % (0-6); HEMATOCRIT 44.2 % (37.9-51.0); HEMOGLOBIN 14.5 g/dL (13.5-17.0); LYMPHOCYTES % (AUTO) 29.2 % (13-45); MEAN CORPUSCULAR HEMOGLOBIN 28.1 pg (27.0-33.4); MEAN CORPUSCULAR HGB CONC 32.9 g/dL (32.0-36.0); MEAN CORPUSCULAR VOLUME 85 fl (80-97); MONOCYTES % (AUTO) 5.9 % (3-13); PLATELET COUNT 239 10^3/uL (150-450); RED BLOOD COUNT 5.17 10^6/uL (4.35-5.55); RED CELL DISTRIBUTION WIDTH 12.6 % (11.5-14.0); SEGMENTED NEUTROPHILS % (AUTO) 60.2 % (42-78); TOTAL CELLS COUNTED % (AUTO) 100 %; WHITE BLOOD COUNT 7.8 10^3/uL (4.0-10.5)
[2019-03-03 10:33] LABS: ALBUMIN 3.6 g/dL (3.5-5.0); ALKALINE PHOSPHATASE 97 U/L (38-126); ANION GAP 11 (5-19); ASPARTATE AMINO TRANSFERASE 18 U/L (17-59); BILIRUBIN,DIRECT 0.2 mg/dL (0.0-0.4); BILIRUBIN,TOTAL 0.3 mg/dL (0.2-1.3); BLOOD UREA NITROGEN 7 mg/dL (7-20); CARBON DIOXIDE 24 mmol/L (22-30); CHLORIDE 99 mmol/L (98-107); POTASSIUM 4.7 mmol/L (3.6-5.0); TOTAL PROTEIN 5.8 g/dL (6.3-8.2)
[2019-03-03 10:44] LABS: GLUCOSE 576 mg/dL (75-110)
--- NOTE | 2019-03-03 10:57 | RADIOLOGY REPORT (SQ) ---
EXAM DESCRIPTION: CHEST 2 VIEWS COMPLETED DATE/TIME: 03/03/2019 10:38 am REASON FOR STUDY: cough, shortness of breath COMPARISON: 11/23/2017 EXAM PARAMETERS: NUMBER OF VIEWS: two views TECHNIQUE: Digital Frontal and Lateral radiographic views of the chest acquired. RADIATION DOSE: NA LIMITATIONS: none FINDINGS: LUNGS AND PLEURA: Subtle heterogeneous opacity of the right lung base, new from prior exam ination. MEDIASTINUM AND HILAR STRUCTURES: No masses or contour abnormalities. HEART AND VASCULAR STRUCTURES: Heart normal size. No evidence for failure. BONES: No acute findings. HARDWARE: None in the chest. OTHER: No other significant finding. IMPRESSION: Subtle heterogeneous opacity of the right lung base, new from prior examination and conc erning for infection or aspiration. Consider follow-up radiographs in 1 to 2 days to observe for rad iographic evolution depending upon clinical course. TECHNICAL DOCUMENTATION: JOB ID: [id number] [employer]- All Rights Reserved Reading location - IP/workstation name: [email or web address]
[2019-03-03 11:50] VITALS: BP 175/113
--- NOTE | 2019-03-03 12:02 | ER Document Report ---
ED General - General Chief Complaint: Breathing Difficulty Stated Complaint: COUGH,CONGESTION,SHORT OF BREATH Time Seen by Provider: 03/03/19 09:28 Mode of Arrival: Ambulatory TRAVEL OUTSIDE OF THE [place] IN LAST 30 DAYS: No - HPI Notes: Patient is a 28-year-old male with a known history of type 2 diabetes who presents to the emergency department for evaluation of cough and congestion. He states he has had the symptoms for the last 2 days. He is had some chills but no annabelle fevers. Some nausea but no vomiting. He has pain in his substernal region with coughing only. He describes it as a soreness. He states his been taking all of his medications as prescribed, except for today, as he stated he was "too tired." - Related Data Allergies/Adverse Reactions: No Known Allergies Allergy (Verified 08/19/17 10:04) Past Medical History - General Information source: Patient - Social History Smoking Status: Former Smoker Frequency of alcohol use: None Drug Abuse: None Family History: DM Patient has suicidal ideation: No Patient has homicidal ideation: No - Past Medical History Cardiac Medical History: Reports: Hx Hypercholesterolemia, Hx Hypertension Pulmonary Medical History: Reports: Hx Asthma, Hx Bronchitis, Hx COPD, Hx Pneum onia, Hx Sleep Apnea Endocrine Medical History: Reports: Hx Diabetes Mellitus Type 2 Renal/ Medical History: Denies: Hx Peritoneal Dialysis Musculoskeletal Medical History: Reports Hx Musculoskeletal Trauma Psychiatric Medical History: Denies: Hx Depression Traumatic Medical History: Reports: Hx Fractures - Boxers Past Surgical History: Reports: Hx Adenoidectomy, Hx Orthopedic Surgery - right hand, Hx Tonsillectomy - T/A - Immunizations Hx Diphtheria, Pertussis, Tetanus Vaccination: Yes Hx Pneumococcal Vaccination: 07/06/14 Review of Systems - Review of Systems Constitutional: See HPI EENT: No symptoms reported Respiratory: See HPI Gastrointestinal: No symptoms reported Genitourinary: No symptoms reported Musculoskeletal: No symptoms reported Skin: No symptoms reported Neurological/Psychological: No symptoms reported Physical Exam - Vital signs Vitals: Temp Pulse Resp BP Pulse Ox 98.1 F 102 H 16 174/93 H 95 03/03/19 09:19 03/03/19 09:19 03/03/19 09:19 03/03/19 09:19 03/03/19 09:19 - Notes Notes: This is a 28-year-old obese male, who appears his stated age in no acute distress. He is resting comfortably on the bed. Vital signs reviewed, please refer to chart. Head is normocephalic, atraumatic. Pupils equal round, reactive to light. Neck is supple without meningismus. Heart is regular rate and rhythm. Lungs are clear to auscultation bilaterally. Chest wall is tender to palpation anteriorly. Abdomen is soft, nontender, normoactive bowel sounds throughout. Extremities without cyanosis, clubbing. Posterior calves are nontender. Peripheral pulses are equal. Skin is warm and dry. Patient is awake, alert, neurological exam is nonfocal. Course - Re-evaluation Re-evalutation: 03/03/19 11:58 Patient presents emergency department for evaluation. He is mildly tachycardic and certainly hypertensive upon arrival. His blood sugar is markedly elevated at 576 as well. He has no significant leukocytosis. Chest x-ray shows likely infiltrate. I will get and start the patient on antibiotics. He is not septic. He is not hypoxic. He is nontoxic in appearance. His blood pressure is high and his sugars are high. He needs to go home and take his medications. This was explained to the patient in great detail. The possible comp occasions associated with high blood pressure and hyperglycemia were explained and he voiced understanding. We will give the patient a prescription for Levaquin. He is to follow-up with primary care, return to the emergency department with worsening or concerning symptoms of any sort. - Vital Signs Vital signs: Temp Pulse Resp BP Pulse Ox 97.7 F 91 20 175/113 H 96 03/03/19 11:49 03/03/19 11:49 03/03/19 11:49 03/03/19 11:49 03/03/19 11:49 - Laboratory Result Diagrams: 03/03/19 09:50 03/03/19 09:50 Laboratory results interpreted by me: 03/03/19 09:50 Sodium 133.6 L Glucose 576 H* Total Protein 5.8 L - Diagnostic Test Radiology reviewed: Reports reviewed Radiology results interpreted by me: 03/03/19 12:00 Chest X-Ray 03/03/19 09:31 IMPRESSION: Subtle heterogeneous opacity of the right lung base, new from prior examination and concerning for infection or aspiration. Consider follow-up radiographs in 1 to 2 days to observe for radiographic evolution depending upon clinical course. 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 You need to go home and take your regular blood pressure and diabetes medications. Follow- up with your doctor this week. If you develop worsening or new concerning symptoms of any sort, return immediately to the emergency department for evaluation. Prescriptions: Levofloxacin [Levaquin 750 mg Tablet] 750 mg PO DAILY #5 tablet Forms: Elevated Blood Pressure, Return to Work
== END 2019-03-03 12:15 | disposition home or self-care (01) ==
LOC: ER 09:14
DX: J18.1 Lobar pneumonia, unspecified organism (principal); E11.65 Type 2 diabetes mellitus with hyperglycemia; Z91.19 Patient's noncompliance with other medical treatment and regimen; R06.02 Shortness of breath; R05 Cough; R09.81 Nasal congestion; R11.0 Nausea; Z87.891 Personal history of nicotine dependence; I10 Essential (primary) hypertension; J44.9 Chronic obstructive pulmonary disease, unspecified
CPT/HCPCS: 94640; 99285; 36415; 85025; 80053; 71046; J7620

== ENCOUNTER 2019-03-12 23:13 | Emergency (ER) | payer SELFPAY ==
[2019-03-13] MEDS ORDERED: INSULIN REG, HUMAN 100 UNIT/ML 3 ML VIAL (PYX) IV ONE (00:30)
[2019-03-13] MEDS ORDERED: IPRATROPIUM/ALBUTEROL 0.5-2.5 MG/3 ML AMPUL NEB ONE ×2 (00:31→05:16)
--- NOTE | 2019-03-13 00:37 | ER Document Report ---
ED General - General Chief Complaint: Shortness Of Breath Stated Complaint: DIFFICULTY BREATHING Time Seen by Provider: 03/13/19 00:13 Primary Care Provider: [facility] [Primary Care Provider] - Follow up as needed Mode of Arrival: Ambulatory Information source: Patient TRAVEL OUTSIDE OF THE [place] IN LAST 30 DAYS: No - HPI Notes: Patient is a morbidly obese 28-year-old female history of asthma who is seen 9 days ago diagnosed with a pneumonia and given Levaquin which she finished 2 days ago and presents currently with report of dyspnea progressive over the last 2 days with continued cough. The patient has concerned that his pneumonia may be recurring. The patient denies any fever, chills. He states he has minimal discomfort to the chest associated with his cough. He has a history of obstructive sleep apnea, morbid obesity, tobacco abuse and continues to smoke. History of insulin-dependent diabetes and noncompliance with his medication. The patient denies any nausea or vomiting but did not take his evening dose of Lantus and did not take his metformin today medications Lantus 35 units twice a day and metformin. No pharyngitis or earache. No abdominal pain, constipation, diarrhea. - Related Data Allergies/Adverse Reactions: ceftriaxone [From Rocephin] Adverse Reaction (Verified 03/13/19 05:07) VOMITING Past Medical History - General Information source: Patient - Social History Smoking Status: Current Every Day Smoker - Attrition had he is Frequency of alcohol use: None - Was Drug Abuse: None Lives with: Family Family History: DM Patient has suicidal ideation: No Patient has homicidal ideation: No - Past Medical History Cardiac Medical History: Reports: Hx Hypercholesterolemia, Hx Hypertension Pulmonary Medical History: Reports: Hx Asthma, Hx Bronchitis, Hx COPD, Hx Pneumonia, Hx Sleep Apnea Endocrine Medical History: Reports: Hx Diabetes Mellitus Type 2 Renal/ Medical History: Denies: Hx Peritoneal Dialysis Musculoskeletal Medical History: Reports Hx Musculoskeletal Trauma Psychiatric Medical History: Denies: Hx Depression Traumatic Medical History: Reports: Hx Fractures - Boxers Past Surgical History: Reports: Hx Adenoidectomy, Hx Orthopedic Surgery - right hand, Hx Tonsillectomy - T/A - Immunizations Hx Diphtheria, Pertussis, Tetanus Vaccination: Yes Hx Pneumococcal Vaccination: 07/06/14 Review of Systems - Review of Systems -: Yes All other systems reviewed and negative Physical Exam - Vital signs Vitals: Temp Pulse Resp BP Pulse Ox 98.6 F 104 H 24 H 188/113 H 95 03/12/19 23:17 03/12/19 23:17 03/12/19 23:17 03/12/19 23:17 03/12/19 23:17 - Notes Notes: PHYSICAL EXAMINATION: GENERAL: Well-appearing, well-nourished and in no acute distress. HEAD: Atraumatic, normocephalic. EYES: Pupils equal round and reactive to light, extraocular movements intact, sclera anicteric, conjunctiva are normal. ENT: Nares patent, oropharynx clear without exudates. Moist mucous membranes. NECK: Normal range of motion, supple without lymphadenopathy LUNGS: Coarse breath sounds bilaterally with expiratory wheeze. No accessory muscle use or retraction. Mild lower costal margin tenderness noted anteriorly bilaterally. HEART: Regular rate and rhythm without murmurs ABDOMEN: Soft, nontender, nondistended abdomen. No guarding, no rebound. No masses appreciated. Morbidly obese. Musculoskeletal: Normal range of motion, trace bilateral lower extremity edema. No cyanosis. Negative Homans. No palpable cord. NEUROLOGICAL: Cranial nerves grossly intact. Normal speech, normal gait. Normal sensory, motor exams PSYCH: Normal mood, normal affect. SKIN: Warm, Dry, normal turgor, no rashes or lesions noted. Course - Re-evaluation Re-evalutation: 03/13/19 00:37 Discussion was undertaken at length with the patient about the need to quit smoking and the need to be compliant with his diabetic medications and his blood sugar monitoring. Blood sugar was 557 and patient was given regular insulin 10 units IV. DuoNeb was ordered. 03/13/19 03:09 Repeat blood sugar came down into the 300s. There is no significant hypercarbia or hypoxia noted. The patient showed no evidence for diabetic ketoacidosis. Chest x-ray showed no evidence for pneumonia or congestive heart failure, and white blood cell count and BNP were both normal. Repeat lung auscultation after nebulizer treatment was improved. Patient was given IV Rocephin and had some itching with this. The infusion was discontinued and this was listed as an allergy. Repeat lung auscultation showed a scant wheeze, but patient denied any dyspnea. There is no oropharyngeal swelling. 03/13/19 05:18 - Vital Signs Vital signs: Temp Pulse Resp BP Pulse Ox 98.6 F 104 H 24 H 188/113 H 95 03/12/19 23:17 03/12/19 23:17 03/12/19 23:17 03/12/19 23:17 03/12/19 23:17 - Laboratory Result Diagrams: 03/13/19 01:45 03/13/19 01:45 Laboratory results interpreted by me: 03/13/19 03/13/19 03/13/19 00:24 01:45 03:18 Sodium 134.3 L Glucose 485 H* POC Glucose > 550 H* 386 H Total Protein 6.2 L 03/13/19 03/13/19 03:23 05:08 Sodium Glucose POC Glucose 409 H* 314 H Total Protein - EKG Interpretation by Me EKG shows normal: Sinus rhythm Rate: Tachycardia Additional EKG results interpreted by me: 03/13/19 03:08 EKG is interpreted by me showed sinus tachycardia heart rate of 103. There is no gross evidence for acute MA or ischemia noted. There is no changes compared to previous EKG reviewed from 01/31/2018. Discharge - Discharge Clinical Impression: Tobacco abuse, Hyperglycemia, Asthma, acute, Medical non-compliance, Bronchitis Condition: Stable Disposition: HOME, SELF-CARE Instructions: Stop Smoking ([facility]), Bronchitis ([facility]), Hyperglycemia ([facility]), Asthma ([facility]) Additional Instructions: Stop smoking. Take your insulin as instructed and watch your blood sugars closely. Prescriptions: Albuterol Sulfate [Proair HFA Inhalation Aerosol 8.5 gm MDI] 2 puff IH Q4H PRN #1 mdi PRN Reason: Azithromycin [Zithromax 250 mg Tablet] 250 mg PO ASDIR PRN #6 tablet PRN Reason: Referrals: [facility] [Primary Care Provider] - Follow up as needed
[2019-03-13 01:53] LABS: ABSOLUTE BASOPHILS # (AUTO) 0.1 10^3/uL (0.0-0.2); ABSOLUTE EOSINOPHILS # (AUTO) 0.3 10^3/uL (0.0-0.6); ABSOLUTE MONOCYTES (AUTO) 0.7 10^3/uL (0.1-1.4); ABSOLUTE NEUT (AUTO) 6.1 10^3/uL (1.7-8.2); BASOPHILS % (AUTO) 1.2 % (0-2); EOSINOPHILS % (AUTO) 2.7 % (0-6); HEMATOCRIT 42.9 % (37.9-51.0); HEMOGLOBIN 14.5 g/dL (13.5-17.0); LYMPHOCYTES % (AUTO) 29.6 % (13-45); MEAN CORPUSCULAR HEMOGLOBIN 28.1 pg (27.0-33.4); MEAN CORPUSCULAR HGB CONC 33.7 g/dL (32.0-36.0); MEAN CORPUSCULAR VOLUME 84 fl (80-97); MONOCYTES % (AUTO) 6.7 % (3-13); PLATELET COUNT 236 10^3/uL (150-450); RED BLOOD COUNT 5.14 10^6/uL (4.35-5.55); RED CELL DISTRIBUTION WIDTH 12.5 % (11.5-14.0); SEGMENTED NEUTROPHILS % (AUTO) 59.8 % (42-78); TOTAL CELLS COUNTED % (AUTO) 100 %; WHITE BLOOD COUNT 10.1 10^3/uL (4.0-10.5)
[2019-03-13 02:17] LABS: ALBUMIN 3.7 g/dL (3.5-5.0); ALKALINE PHOSPHATASE 114 U/L (38-126); ANION GAP 10 (5-19); ASPARTATE AMINO TRANSFERASE 24 U/L (17-59); BILIRUBIN,DIRECT 0.4 mg/dL (0.0-0.4); BILIRUBIN,TOTAL 0.4 mg/dL (0.2-1.3); BLOOD UREA NITROGEN 10 mg/dL (7-20); CALCIUM 9.2 mg/dL (8.4-10.2); CARBON DIOXIDE 23 mmol/L (22-30); CHLORIDE 101 mmol/L (98-107); POTASSIUM 4.2 mmol/L (3.6-5.0); TOTAL PROTEIN 6.2 g/dL (6.3-8.2)
[2019-03-13 02:32] LABS: GLUCOSE 485 mg/dL (75-110)
[2019-03-13 02:33] LABS: NT PRO BNP < 11 pg/mL (<125); TROPONIN I < 0.012 ng/mL
[2019-03-13] MEDS ORDERED: NORMAL SALINE 1000 ML 1,000 ML IV ONE (03:10)
[2019-03-13] MEDS ORDERED: CEFTRIAXONE 2 GM/D5W RTU 2 GM/50 ML RTUPB IV ONE (03:54)
--- NOTE | 2019-03-13 04:46 | RADIOLOGY REPORT (SQ) ---
EXAM DESCRIPTION: XR CHEST 2 VIEWS COMPLETED DATE/TME: 03/13/2019 00:27 CLINICAL HISTORY: 28 years, Male, dyspnea, cough COMPARISON: 03/03/2019 NUMBER OF VIEWS: Two TECHNIQUE: Two views of the chest LIMITATIONS: None. FINDINGS: Lungs are clear. The heart is normal in size. There is no pneumothorax or pleural effusion. The bones are unremarkable. IMPRESSION: No acute cardiopulmonary abnormality copyright 2010 [employer]- All Rights Reserved
[2019-03-13] MEDS ORDERED: ONDANSETRON HCL INJ/PF 4 MG/2 ML SDV IV ONE (04:58)
[2019-03-13] MEDS ORDERED: ONDANSETRON HCL INJ/PF 4 MG/2 ML SDV ONE (04:59)
[2019-03-13] MEDS ORDERED: ALBUTEROL SULFATE HFA (90 MCG/PUFF) 8 GM MDI (1 MDI/ER DISP) IH ONE (05:30)
[2019-03-13 05:57] VITALS: BP 130/93
--- NOTE | 2019-03-14 10:34 | EKG REPORT ---
SEVERITY:- OTHERWISE NORMAL ECG - SINUS TACHYCARDIA : Confirmed by: Varsha Smith 14-Mar-2019 10:34:12
== END 2019-03-13 05:55 | disposition home or self-care (01) ==
LOC: ER 23:13
DX: J44.9 Chronic obstructive pulmonary disease, unspecified (principal); R05 Cough; E11.65 Type 2 diabetes mellitus with hyperglycemia; T38.3X6A Underdosing of insulin and oral hypoglycemic [antidiabetic] drugs, initial encounter; Z91.14 Patient's other noncompliance with medication regimen; L29.9 Pruritus, unspecified; T36.1X5A Adverse effect of cephalosporins and other beta-lactam antibiotics, initial encounter; Y92.239 Unspecified place in hospital as the place of occurrence of the external cause; Z87.01 Personal history of pneumonia (recurrent); F17.200 Nicotine dependence, unspecified, uncomplicated; I10 Essential (primary) hypertension; R00.0 Tachycardia, unspecified
CPT/HCPCS: 94640 ×2; 99285; 96374; 96375; 36415; 82962; 85025; 80053; 84484; 83880; 71046; 93005; 93010; J1815; J2405; J3490; J7620; J0696

== ENCOUNTER 2019-03-15 14:07 | Emergency (ER) | payer SELFPAY ==
[2019-03-15] MEDS ORDERED: IPRATROPIUM/ALBUTEROL 0.5-2.5 MG/3 ML AMPUL NEB ONE (15:18)
--- NOTE | 2019-03-15 15:22 | ER Document Report ---
ED Medical Screen (RME) - General Chief Complaint: Rib Pain Stated Complaint: LEFT RIB PAIN Time Seen by Provider: 03/15/19 15:08 Primary Care Provider: [facility] [Primary Care Provider] - Follow up as needed Notes: Patient is a 28-year-old male with a history of hypertension and type 2 diabetes who presents to the emergency department with a chief complaint of left rib pain. Patient states that over the past month he has been treated for pneumonia. Patient states he was seen here a few days ago and was told that the pneumonia has cleared up. Patient states he has been using his albuterol inhal er which does seem to help with his cough and lungs. Patient states he continues to have a violent cough with productive yellow sputum. Patient reports he continues to have chest pain located in the center of his chest. Patient states he did smoke 1 pack of cigarettes per day but just quit within the past month. Patient denies fever or chills. Patient states this morning he got into a hot shower which seemed to make the coughing worse and he felt short of breath. Patient states he does take Lantus for his diabetes but does not check his sugars at home. Patient states they want to place him on steroids but they chose not to due to his elevated blood sugars. TRAVEL OUTSIDE OF THE [place] IN LAST 30 DAYS: No - Related Data Allergies/Adverse Reactions: ceftriaxone [From Rocephin] Adverse Reaction (Verified 03/15/19 14:11) VOMITING Past Medical History - Past Medical History Cardiac Medical History: Reports: Hx Hypercholesterolemia, Hx Hypertension Pulmonary Medical History: Reports: Hx Asthma, Hx Bronchitis, Hx COPD, Hx Pn eumonia, Hx Sleep Apnea Endocrine Medical History: Reports: Hx Diabetes Mellitus Type 2 Renal/ Medical History: Denies: Hx Peritoneal Dialysis Musculoskeltal Medical History: Reports Hx Musculoskeletal Trauma Psychiatric Medical History: Denies: Hx Depression Traumatic Medical History: Reports: Hx Fractures - Boxers Past Surgical History: Reports: Hx Adenoidectomy, Hx Orthopedic Surgery - right hand, Hx Tonsillectomy - T/A - Immunizations Hx Diphtheria, Pertussis, Tetanus Vaccination: Yes History of Influenza Vaccine for 04/2017 - 09/2017 Season: Unknown Physical Exam - Vital signs Vitals: Temp Pulse Resp BP Pulse Ox 98.4 F 97 17 159/106 H 93 03/15/19 14:17 03/15/19 14:17 03/15/19 14:17 03/15/19 14:17 03/15/19 14:17 - Respiratory Respiratory status: No respiratory distress Chest status: Pain with cough Breath sounds: Productive cough, Wheezing Chest palpation: Normal Notes: Scattered coarse lung sounds throughout which cleared with cough, expiratory wheeze noted in upper lobes bilaterally. Course - Re-evaluation Re-evalutation: 03/15/19 15:21 I have greeted and performed a rapid initial assessment of this patient. A comprehensive ED assessment and evaluation of the patient, analysis of test results and completion of the medical decision making process will be conducted by additional ED providers. - Vital Signs Vital signs: Temp Pulse Resp BP Pulse Ox 98.4 F 97 17 159/106 H 93 03/15/19 14:17 03/15/19 14:17 03/15/19 14:17 03/15/19 14:17 03/15/19 14:17 Doctor's Discharge - Discharge Referrals: [facility] [Primary Care Provider] - Follow up as needed
[2019-03-15 16:04] LABS: ABSOLUTE BASOPHILS # (AUTO) 0.2 10^3/uL (0.0-0.2); ABSOLUTE EOSINOPHILS # (AUTO) 0.4 10^3/uL (0.0-0.6); ABSOLUTE LYMPHOCYTES (AUTO) 2.9 10^3/uL (0.5-4.7); ABSOLUTE MONOCYTES (AUTO) 0.7 10^3/uL (0.1-1.4); BASOPHILS % (AUTO) 2.2 % (0-2); EOSINOPHILS % (AUTO) 3.5 % (0-6); HEMATOCRIT 43.5 % (37.9-51.0); HEMOGLOBIN 14.7 g/dL (13.5-17.0); LYMPHOCYTES % (AUTO) 28.8 % (13-45); MEAN CORPUSCULAR HEMOGLOBIN 28.2 pg (27.0-33.4); MEAN CORPUSCULAR HGB CONC 33.8 g/dL (32.0-36.0); MEAN CORPUSCULAR VOLUME 84 fl (80-97); MONOCYTES % (AUTO) 6.5 % (3-13); PLATELET COUNT 263 10^3/uL (150-450); RED BLOOD COUNT 5.21 10^6/uL (4.35-5.55); RED CELL DISTRIBUTION WIDTH 12.4 % (11.5-14.0); TOTAL CELLS COUNTED % (AUTO) 100 %; WHITE BLOOD COUNT 10.2 10^3/uL (4.0-10.5)
--- NOTE | 2019-03-15 16:18 | RADIOLOGY REPORT (SQ) ---
EXAM DESCRIPTION: RIBS LEFT W/PA CHEST COMPLETED DATE/TIME: 03/15/2019 4:05 pm REASON FOR STUDY: left rib pain, productive cough COMPARISON: None. TECHNIQUE: Frontal view of the chest and additional views of the left ribs acquired. NUMBER OF VIEWS: Four view. LIMITATIONS: None. FINDINGS: FRONTAL CXR: No pneumothorax. No pleural effusion. No atelectasis or infiltrates. RIBS: No displaced rib fractures. No lytic or blastic bony lesions. OTHER: No other significant finding. IMPRESSION: NO PNEUMOTHORAX. NO DISPLACED RIB FRACTURES. COMMENT: SITE OF TRAUMA/COMPLAINT MARKED/STAMP COMPLETED: NO. TECHNICAL DOCUMENTATION: JOB ID: [id number] [place]-72 2010 [employer]- All Rights Reserved Reading location - IP/workstation name: [employer]
[2019-03-15 16:25] LABS: ALBUMIN 3.7 g/dL (3.5-5.0); ALKALINE PHOSPHATASE 85 U/L (38-126); ANION GAP 10 (5-19); ASPARTATE AMINO TRANSFERASE 21 U/L (17-59); BILIRUBIN,DIRECT 0.1 mg/dL (0.0-0.4); BILIRUBIN,TOTAL 0.3 mg/dL (0.2-1.3); BLOOD UREA NITROGEN 7 mg/dL (7-20); CALCIUM 9.4 mg/dL (8.4-10.2); CARBON DIOXIDE 27 mmol/L (22-30); CHLORIDE 101 mmol/L (98-107); GLUCOSE 272 mg/dL (75-110); POTASSIUM 4.1 mmol/L (3.6-5.0); TOTAL PROTEIN 6.1 g/dL (6.3-8.2)
--- NOTE | 2019-03-15 16:44 | ER Document Report ---
ED General - General Chief Complaint: Rib Pain Stated Complaint: LEFT RIB PAIN Time Seen by Provider: 03/15/19 15:08 Primary Care Provider: [facility] [Primary Care Provider] - Follow up as needed Notes: Patient is a morbidly obese male with history of asthma that presents to the emergency department for chief complaint of cough, rib pain. Patient states he has been short of breath, he was diagnosed with pneumonia on the left side about 2 weeks ago, seemingly cleared up to a degree, but his symptoms have persisted, he went to the ED 2 days ago, for the same symptoms, his chest x-ray revealed a clearing of his prior pneumonia, and he was discharged to home he has been using albuterol which does improve his shortness of breath, which seems to be triggered with a hot shower, but he wanted to be reevaluated to see if there is anything else that might be going on. He describes the pain is having is worse with a cough, along the left side of the ribs. He denies having any chest pain at this time however, and denies having any pain with a deep breath at this time. He also denies having any nausea, vomiting, fevers, chills, night sweats. He states he was diagnosed with sleep apnea, but is not currently using CPAP, he is a smoker, only quit a few days ago. Past Medical History: Obstructive sleep apnea, asthma, obesity, diabetes Past Surgical History: Tonsillectomy Social History: Former smoker only quit a few days ago, denies any chronic alcohol use, or illicit drug use. Family History: Reviewed and noncontributory for presenting illness Allergies: Reviewed, see documented allergy list. REVIEW OF SYSTEMS: Other than noted above, the 12 point review of systems was reviewed with the patient and were negative, all pertinent findings are included in the HPI. PHYSICAL EXAMINATION: Vital signs reviewed, nursing noted reviewed. GENERAL: Morbidly obese male, but in no acute distress HEAD: Atraumatic, normocephalic. EYES: Eyes appear normal, extraocular movements intact, sclera anicteric, conjunctiva are normal. ENT: nares patent, oropharynx clear without exudates. Moist mucous membranes. NECK: Normal range of motion, supple without lymphadenopathy LUNGS: Breath sounds clear to auscultation bilaterally and equal. No wheezes rales or rhonchi. HEART: Regular rate and rhythm without murmurs ABDOMEN: Soft, nontender, normoactive bowel sounds. No rebound, guarding, or rigidity. No masses appreciated. EXTREMITIES: Nontender, good range of motion, no pitting or edema. NEUROLOGICAL: No focal neurological deficits. Moves all extremities spontaneously Motor and sensory grossly intact on exam. PSYCH: Normal mood, normal affect. SKIN: Warm, Dry, normal turgor, no rashes or lesions noted on exposed skin TRAVEL OUTSIDE OF THE [place] IN LAST 30 DAYS: No - Related Data Allergies/Adverse Reactions: ceftriaxone [From Rocephin] Adverse Reaction (Verified 03/15/19 14:11) VOMITING Past Medical History - Social History Smoking Status: Former Smoker Family History: DM Patient has suicidal ideation: No Patient has homicidal ideation: No - Past Medical History Cardiac Medical History: Reports: Hx Hypercholesterolemia, Hx Hypertension Pulmonary Medical History: Reports: Hx Asthma, Hx Bronchitis, Hx COPD, Hx Pneumonia, Hx Sleep Apnea Endocrine Medical History: Reports: Hx Diabetes Mellitus Type 2 Renal/ Medical History: Denies: Hx Peritoneal Dialysis Musculoskeletal Medical History: Reports Hx Musculoskeletal Trauma Psychiatric Medical History: Denies: Hx Depression Traumatic Medical History: Reports: Hx Fractures - Boxers Past Surgical History: Reports: Hx Adenoidectomy, Hx Orthopedic Surgery - right hand, Hx Tonsillectomy - T/A - Immunizations Hx Diphtheria, Pertussis, Tetanus Vaccination: Yes Hx Pneumococcal Vaccination: 07/06/14 Physical Exam - Vital signs Vitals: Temp Pulse Resp BP Pulse Ox 98.4 F 97 17 159/106 H 93 03/15/19 14:17 03/15/19 14:17 03/15/19 14:17 03/15/19 14:17 03/15/19 14:17 Course - Re-evaluation Re-evalutation: Patient seen and examined vital signs reviewed. Laboratory data and/or imaging were ordered as appropriate for the patient's presenting symptoms and complaint, with consideration of any critical or life threatening conditions that may be associated with their obtained history and exam as noted above. Patient was treated with DuoNeb breathing treatment in triage Results were reviewed when available and demonstrated unremarkable work-up, negative chest x-ray and rib films ordered in triage The patient was re-evaluated and was stable, lungs are clear after breathing treatment, patient felt improved, I discussed with him at length, that he likely is having bronchospasm, as he was wheezing in triage, he has a history of asthma, however will avoid systemic corticosteroids, as the patient's blood sugars have been running higher, he needs follow-up with his primary care, and instead will prescribe topical Flovent twice daily, and Hycodan cough syrup and have him follow-up. Evaluation was most consistent with productive cough, bronchospasm Results were discussed with the patient at this point, after careful consideration I feel that that patient can be discharged from the emergency department, the patient was educated treatments and reasons to return to the emergency department based on their presumed diagnosis as noted above, they were advised to followup with a primary care physician in 2-3 days. Patient was agreeable to plan of care. *Note is created using voice recognition software and may contain spelling, syntax or grammatical errors. Laboratory 03/15/19 03/15/19 15:37 15:37 WBC 10.2 RBC 5.21 Hgb 14.7 Hct 43.5 MCV 84 MCH 28.2 MCHC 33.8 RDW 12.4 Plt Count 263 Seg Neutrophils % 59.0 Lymphocytes % 28.8 Monocytes % 6.5 Eosinophils % 3.5 Basophils % 2.2 H Absolute Neutrophils 6.0 Absolute Lymphocytes 2.9 Absolute Monocytes 0.7 Absolute Eosinophils 0.4 Absolute Basophils 0.2 Sodium 137.9 Potassium 4.1 Chloride 101 Carbon Dioxide 27 Anion Gap 10 BUN 7 Creatinine 0.64 Est GFR ( Amer) > 60 Est GFR (Non-Af Amer) > 60 Glucose 272 H Calcium 9.4 Total Bilirubin 0.3 Direct Bilirubin 0.1 Neonat Total Bilirubin Not Reportable Neonat Direct Bilirubin Not Reportable Neonat Indirect Bili Not Reportable AST 21 ALT 23 Alkaline Phosphatase 85 Total Protein 6.1 L Albumin 3.7 Ribs w/Chest X-Ray 03/15/19 15:25 IMPRESSION: NO PNEUMOTHORAX. NO DISPLACED RIB FRACTURES. - Vital Signs Vital signs: Temp Pulse Resp BP Pulse Ox 98.4 F 97 17 159/106 H 93 03/15/19 14:17 03/15/19 14:17 03/15/19 14:17 03/15/19 14:17 03/15/19 14:17 - Laboratory Result Diagrams: 03/15/19 15:37 03/15/19 15:37 Laboratory results interpreted by me: 03/15/19 03/15/19 15:37 15:37 Basophils % 2.2 H Glucose 272 H Total Protein 6.1 L - EKG Interpretation by Me Additional EKG results interpreted by me: EKG demonstrates sinus rhythm with a ventricular rate of 91 bpm, normal axis, normal intervals, this is compared with a prior EKG from 03/13/2018, without significant change. Discharge - Discharge Clinical Impression: Productive cough, Bronchospasm Condition: Stable Disposition: HOME, SELF-CARE Instructions: Bronchitis With Bronchospasm (Wheezing) ([facility]) Additional Instructions: Please use the Flovent inhaler, 2 puffs twice daily, for at least the next 2 weeks, please follow-up with the [facility], regarding your blood sugars as they are running high, take the cough medicine as directed only if needed every 6-8 hours. If you have any worsening of your symptoms, do not hesitate to return to the emergency department. Prescriptions: Fluticasone Propionate [Flovent Hfa 110 Mcg Inhalation Aerosol 12 gm] 2 puff IH Q12 #1 inhaler Hydrocodone Bit/Homatrop Me-Br [Hydrocodone-Homatropine Syrup] 5 ml PO Q6H PRN #100 ml PRN Reason: Cough Referrals: [facility] [Primary Care Provider] - Follow up in 3-5 days (call for appointment. )
[2019-03-15 17:27] VITALS: BP 138/64
--- NOTE | 2019-03-16 00:36 | EKG REPORT ---
SEVERITY:- NORMAL ECG - SINUS RHYTHM : Confirmed by: Varsha Smith 16-Mar-2019 00:35:51
== END 2019-03-15 17:41 | disposition home or self-care (01) ==
LOC: ER 14:07
DX: J98.01 Acute bronchospasm (principal); R05 Cough; R07.81 Pleurodynia; E66.01 Morbid (severe) obesity due to excess calories; E11.9 Type 2 diabetes mellitus without complications; Z87.891 Personal history of nicotine dependence; I10 Essential (primary) hypertension; J44.9 Chronic obstructive pulmonary disease, unspecified
CPT/HCPCS: 99284; 36415; 85025; 80053; 71101; 93005; 93010; J7620

== ENCOUNTER 2019-04-12 19:40 | Emergency (ER) | payer SELFPAY ==
[2019-04-12] MEDS ORDERED: IPRATROPIUM/ALBUTEROL 0.5-2.5 MG/3 ML AMPUL NEB ONE ×2 (20:00→20:01)
[2019-04-12] MEDS ORDERED: PREDNISONE 20 MG TABLET PO ONE (20:01)
[2019-04-12] MEDS ORDERED: ALBUTEROL SULFATE 0.083% NEB 2.5 MG/3 ML AMPUL NEB ONE ×2 (20:01→21:17)
--- NOTE | 2019-04-12 20:22 | ER Document Report ---
ED General - General Chief Complaint: Shortness Of Breath Stated Complaint: DIFFICULTY BREATHING Time Seen by Provider: 04/12/19 20:01 [facility]: [facility] [Primary Care Provider] - Follow up tomorrow TRAVEL OUTSIDE OF THE [place] IN LAST 30 DAYS: No - HPI Notes: Patient is a 28-year-old male that presents to the emergency department for chief complaint of asthma exacerbation. Patient states that yesterday he started to have cold symptoms including scratchy throat sinus congestion and cough. He has a significant other with similar symptoms. Today he states his cough has increased and his asthma has worsened. He has used his albuterol inhaler without spacer 1 puff 7 times today. He states it does give him relief but his tightness returns. He denies admission to the hospital in the past for asthma exacerbations. Patient denies any fevers, chest pain, nausea or vomiting. Past Medical History: Diabetes, hypertension, asthma Past Surgical History: Reviewed in chart Social History: Daily tobacco use but denies tobacco today. Denies drug and alcohol use. Family History: Reviewed and noncontributory for presenting illness Allergies: Reviewed, see documented allergy list. REVIEW OF SYSTEMS: CONSTITUTIONAL : No fever No chills No diaphoresis No recent illness EENT: No vision changes congestion No sore throat CARDIOVASCULAR: No chest pain No palpitations RESPIRATORY: shortness of breath cough difficulty breathing GASTROINTESTINAL: No abdominal pain No nausea No vomiting No diarrhea GENITOURINARY: No dysuria No hematuria No difficulty urinating MUSCULOSKELETAL: No back pain No leg pain No arm pain SKIN: No rashes No lesions LYMPHATIC: No swollen, enlarged glands. NEUROLOGICAL: No lightheadedness No headache No weakness No paresthesias PSYCHIATRIC: No anxiety No depression PHYSICAL EXAMINATION: Vital signs reviewed, nursing noted reviewed. GENERAL: Well-appearing, obese in mild respiratory distress HEAD: Atraumatic, normocephalic. EYES: Eyes appear normal, extraocular movements intact, sclera anicteric, conjunctiva are normal. ENT: nares patent, oropharynx clear without exudates. Moist mucous membranes. NECK: Normal range of motion, supple without lymphadenopathy LUNGS: Breath sounds diminished with expiratory wheezing bilaterally. Tachypneic without retractions. Mild accessory muscle use. Speaking in full sentences. HEART: Tachycardic rate and regular rhythm without murmurs ABDOMEN: Soft, nontender, normoactive bowel sounds. No rebound, guarding, or rigidity. No masses appreciated. EXTREMITIES: Nontender, good range of motion, no pitting or edema. NEUROLOGICAL: No focal neurological deficits. Moves all extremities spontaneously Motor and sensory grossly intact on exam. PSYCH: Normal mood, normal affect. SKIN: Warm, Dry, normal turgor, no rashes or lesions noted on exposed skin - Related Data Allergies/Adverse Reactions: ceftriaxone [From Rocephin] Adverse Reaction (Verified 03/15/19 14:11) VOMITING Past Medical History - Social History Smoking Status: Current Every Day Smoker Family History: DM - Past Medical History Cardiac Medical History: Reports: Hx Hypercholesterolemia, Hx Hypertension Pulmonary Medical History: Reports: Hx Asthma, Hx Bronchitis, Hx COPD, Hx Pneumonia, Hx Sleep Apnea Endocrine Medical History: Reports: Hx Diabetes Mellitus Type 2 Renal/ Medical History: Denies: Hx Peritoneal Dialysis Musculoskeletal Medical History: Reports Hx Musculoskeletal Trauma Psychiatric Medical History: Denies: Hx Depression Traumatic Medical History: Reports: Hx Fractures - Boxers Past Surgical History: Reports: Hx Adenoidectomy, Hx Orthopedic Surgery - right hand, Hx Tonsillectomy - T/A - Immunizations Hx Diphtheria, Pertussis, Tetanus Vaccination: Yes Hx Pneumococcal Vaccination: 07/06/14 Physical Exam - Vital signs Vitals: Temp Pulse Resp BP Pulse Ox 98.8 F 110 H 23 H 176/111 H 89 L 04/12/19 19:49 04/12/19 19:49 04/12/19 19:49 04/12/19 19:49 04/12/19 19:49 Course - Re-evaluation Re-evalutation: 04/12/19 20:21 Vitals reviewed. Nursing notes reviewed. Patient had low oxygen in triage but was 94% during my evaluation of him in the room. He does have wheezing and diminished lung sounds consistent with asthma exacerbation. Patient ordered prednisone, DuoNeb, and albuterol for symptomatic management. X-ray ordered to evaluate for underlying pneumonia. 04/12/19 21:17 Patient reevaluated. He states he is feeling better. Lung sounds still diminished with expiratory wheezing but improved. Patient's oxygen saturation is 92% on room air. He is still speaking in full sentences. Patient will be ordered 1 more albuterol nebulized inhaler for his continued wheezing. X-ray had low lung volumes but no focal pneumonia was seen. Patient symptoms likely related to bronchitis with asthma exacerbation. He will be started on prednisone. He will be given refills for his nebulized albuterol at home as well as albuterol MDI. Patient states he has a spacer, he will begin using this as directed. 04/12/19 22:41 Patient is still oxygenating at 92% on room air. He is feeling clinically improved and will be discharged home in stable condition for close outpatient management and follow-up. Chest X-Ray 04/12/19 20:01 IMPRESSION: Negative low lung volume study. copyright 2010 [employer]- All Rights Reserved - Vital Signs Vital signs: Temp Pulse Resp BP Pulse Ox 98.8 F 110 H 28 H 150/71 H 92 04/12/19 19:49 04/12/19 19:49 04/12/19 21:01 04/12/19 21:01 04/12/19 21:01 - EKG Interpretation by Me Additional EKG results interpreted by me: 04/12/19 21:11 Interpreted by myself 1955: Sinus tachycardia, rate 116, normal axis, no ectopy, no STEMI Discharge - Discharge Clinical Impression: Bronchitis Asthma exacerbation Qualifiers: Asthma severity: mild Asthma persistence: intermittent Qualified Code(s): J45.21 - Mild intermittent asthma with (acute) exacerbation Condition: Stable Disposition: HOME, SELF-CARE Instructions: Asthma ([facility]), Bronchitis With Bronchospasm (Wheezing) ([facility]) Additional Instructions: Please return to the emergency department if you have any worsening, or concern of your symptoms. Please return to the emergency department if you develop chest pain, difficulty breathing, severe abdominal pain, or ongoing vomiting. Please follow-up with your primary care physician in 2-3 days and any other recommended physicians. If prescribed, take all medications as directed. If you have any questions or concerns do not hesitate to return the emergency department for evaluation. Begin taking the prednisone prescription tomorrow, 04/13/2019. Use your albuterol nebulizer or 2 puffs on your albuterol inhaler with spacer every 4 hours for cough and wheezing Prescriptions: Prednisone [Deltasone] 40 mg PO DAILY #8 tablet Albuterol Sulfate [Proair HFA Inhalation Aerosol 8.5 gm MDI] 2 puff IH Q4H PRN #1 mdi PRN Reason: Wheezing Albuterol Sulfate [Ventolin 0.083% Neb 2.5 mg/3 mL Ampul] 1 vial NEB Q4 PRN #100 vial PRN Reason: Wheezing Forms: Smoking Cessation Education [facility]errals: [facility] [Primary Care Provider] - Follow up tomorrow
--- NOTE | 2019-04-12 20:38 | RADIOLOGY REPORT (SQ) ---
EXAM DESCRIPTION: XR CHEST 1 VIEW COMPLETED DATE/TME: 04/12/2019 20:01 CLINICAL HISTORY: 28 years, Male, shortness of breath COMPARISON: Multiple priors, most recent from 03/13/2019 NUMBER OF VIEWS: One TECHNIQUE: Single frontal radiograph of the chest was obtained. LIMITATIONS: None. FINDINGS: Cardiac and mediastinal contours are stable in appearance. Lung volumes are low. No focal consolidation, pleural effusion, or pneumothorax is evident. IMPRESSION: Negative low lung volume study. copyright 2010 [employer]- All Rights Reserved
[2019-04-12 21:26] VITALS: BP 150/71
[2019-04-12] MEDS ORDERED: ACETAMINOPHEN 325 MG TABLET PO ONE (23:01)
[2019-04-12 23:32] LABS: ABSOLUTE BASOPHILS # (AUTO) 0.1 10^3/uL (0.0-0.2); ABSOLUTE EOSINOPHILS # (AUTO) 0.1 10^3/uL (0.0-0.6); ABSOLUTE MONOCYTES (AUTO) 0.5 10^3/uL (0.1-1.4); ABSOLUTE NEUT (AUTO) 8.9 10^3/uL (1.7-8.2); BASOPHILS % (AUTO) 0.6 % (0-2); EOSINOPHILS % (AUTO) 0.8 % (0-6); HEMATOCRIT 39.9 % (37.9-51.0); HEMOGLOBIN 13.6 g/dL (13.5-17.0); LYMPHOCYTES % (AUTO) 9.2 % (13-45); MEAN CORPUSCULAR HEMOGLOBIN 28.3 pg (27.0-33.4); MEAN CORPUSCULAR HGB CONC 34.2 g/dL (32.0-36.0); MEAN CORPUSCULAR VOLUME 83 fl (80-97); MONOCYTES % (AUTO) 4.5 % (3-13); PLATELET COUNT 258 10^3/uL (150-450); RED CELL DISTRIBUTION WIDTH 12.5 % (11.5-14.0); SEGMENTED NEUTROPHILS % (AUTO) 84.9 % (42-78); TOTAL CELLS COUNTED % (AUTO) 100 %; WHITE BLOOD COUNT 10.5 10^3/uL (4.0-10.5)
[2019-04-12 23:49] LABS: ALKALINE PHOSPHATASE 96 U/L (38-126); ANION GAP 10 (5-19); ASPARTATE AMINO TRANSFERASE 35 U/L (17-59); BILIRUBIN,TOTAL 0.2 mg/dL (0.2-1.3); BLOOD UREA NITROGEN 10 mg/dL (7-20); CALCIUM 9.3 mg/dL (8.4-10.2); CARBON DIOXIDE 25 mmol/L (22-30); CHLORIDE 104 mmol/L (98-107); GLUCOSE 291 mg/dL (75-110); POTASSIUM 3.9 mmol/L (3.6-5.0); TOTAL PROTEIN 6.8 g/dL (6.3-8.2)
[2019-04-13 00:52] LABS: A TYPE INFLUENZA AG NEGATIVE (NEGATIVE); B INFLUENZA AG NEGATIVE (NEGATIVE)
[2019-04-13] MEDS ORDERED: IBUPROFEN 800 MG TABLET PO ONE (01:16)
--- NOTE | 2019-04-13 07:30 | EKG REPORT ---
SEVERITY:- ABNORMAL ECG - SINUS TACHYCARDIA WITH PACS [id number] INFERIOR Q WAVES, PROBABLY NORMAL VARIATION BORDERLINE T WAVE ABNORMALITIES : Confirmed by: Eran Joseph MD 13-Apr-2019 07:30:04
== END 2019-04-13 02:04 | disposition home or self-care (01) ==
LOC: ER 19:40
DX: J45.21 Mild intermittent asthma with (acute) exacerbation (principal); R06.02 Shortness of breath; R09.81 Nasal congestion; R05 Cough; E11.9 Type 2 diabetes mellitus without complications; I10 Essential (primary) hypertension
CPT/HCPCS: 93005; 36415; 87040; 85025; 80053; 87804; 71045; 93010; J7512; J7620; 94640; 99285

== ENCOUNTER 2019-06-06 18:33 | Emergency (ER) | payer SELFPAY ==
[2019-06-06] MEDS ORDERED: IPRATROPIUM/ALBUTEROL 0.5-2.5 MG/3 ML AMPUL NEB ONE (19:06)
[2019-06-06] MEDS ORDERED: ASPIRIN 81 MG TABLET, CHEWABLE PO ONE (19:06)
--- NOTE | 2019-06-06 19:08 | ER Document Report ---
ED Medical Screen (RME) - General Chief Complaint: Chest Pain Stated Complaint: CHEST PAIN Time Seen by Provider: 06/06/19 19:02 Primary Care Provider: [facility] [Primary Care Provider] - Follow up as needed Information source: Patient Notes: Patient presents complaining of cough for the past 3 days with chest pain for the past 2 days. Patient states yesterday the chest pain radiating to the left shoulder into the upper extremity into the left thigh area. Patient also complains of a dental infection. Patient has a history of hypertension and diabetes and has not been on any blood pressure medicines for some time. I have greeted and performed a rapid initial assessment of this patient. A comprehensive ED assessment and evaluation of the patient, analysis of test re sults and completion of the medical decision making process will be conducted by additional ED providers. TRAVEL OUTSIDE OF THE [place] IN LAST 30 DAYS: No - Related Data Allergies/Adverse Reactions: ceftriaxone [From Rocephin] Adverse Reaction (Verified 03/15/19 14:11) VOMITING Past Medical History - Past Medical History Cardiac Medical History: Reports: Hx Hypercholesterolemia, Hx Hypertension Pulmonary Medical History: Reports: Hx Asthma, Hx Bronchitis, Hx COPD, Hx Pneumonia, Hx Sleep Apnea Endocrine Medical History: Reports: Hx Diabetes Mellitus Type 2 Renal/ Medical History: Denies: Hx Peritoneal Dialysis Musculoskeltal Medical History: Reports Hx Musculoskeletal Trauma Psychiatric Medical History: Denies: Hx Depression Traumatic Medical History: Reports: Hx Fractures - Boxers Past Surgical History: Reports: Hx Adenoidectomy, Hx Orthopedic Surgery - right hand, Hx Tonsillectomy - T/A - Immunizations Hx Diphtheria, Pertussis, Tetanus Vaccination: Yes Physical Exam - Vital signs Vitals: Temp Pulse Resp BP Pulse Ox 99.3 F 95 20 197/109 H 96 06/06/19 18:57 06/06/19 18:57 06/06/19 18:57 06/06/19 18:57 06/06/19 18:57 - Respiratory Respiratory status: No respiratory distress Breath sounds: Nonproductive cough, Rhonchi Course - Vital Signs Vital signs: Temp Pulse Resp BP Pulse Ox 99.3 F 95 20 190/117 H 96 06/06/19 18:57 06/06/19 18:57 06/06/19 18:57 06/06/19 19:01 11/09/19 18:57 Doctor's Discharge - Discharge Referrals: [facility] [Primary Care Provider] - Follow up as needed
--- NOTE | 2019-06-06 20:16 | ER Document Report ---
ED General - General Chief Complaint: Chest Pain Stated Complaint: CHEST PAIN Time Seen by Provider: 06/06/19 19:02 [facility] [NO LOCAL MD] - Follow up in 1 week Notes: Patient is a 28-year-old male with a history of hypertension and type 2 diabetes that comes emergency department for chief complaint of pain in his right lower jaw, he states this is worsening and spreading to his face, he does have known dental caries. In addition to this he reports that he has had a cough for the past 3 or so days, random pains along the side of his chest worse on the left, and he did feel feverish over the past couple of days. He denies nausea or vomiting, he states he had a sore throat but this resolved, he states he has had sick contacts with the same symptoms. He denies neck pain, headache, difficulty breathing. Remaining past medical history includes asthma, obesity, YOU. He denies smoking. He denies recreational drugs or alcohol. TRAVEL OUTSIDE OF THE [place] IN LAST 30 DAYS: No - Related Data Allergies/Adverse Reactions: ceftriaxone [From Rocephin] Adverse Reaction (Verified 03/15/19 14:11) VOMITING Past Medical History - General Information source: Patient - Social History Smoking Status: Current Every Day Smoker Chew tobacco use (# tins/day): No Smoking Education Provided: Yes - <3 min Frequency of alcohol use: None Drug Abuse: None Lives with: Family Family History: DM Patient has suicidal ideation: No Patient has homicidal ideation: No - Past Medical History Cardiac Medical History: Reports: Hx Hypercholesterolemia, Hx Hypertension Pulmonary Medical History: Reports: Hx Asthma, Hx Bronchitis, Hx COPD, Hx Pneumonia, Hx Sleep Apnea Endocrine Medical History: Reports: Hx Diabetes Mellitus Type 2 Renal/ Medical History: Denies: Hx Peritoneal Dialysis Musculoskeletal Medical History: Reports Hx Musculoskeletal Trauma Psychiatric Medical History: Denies: Hx Depression Traumatic Medical History: Reports: Hx Fractures - Boxers Past Surgical History: Reports: Hx Adenoidectomy, Hx Orthopedic Surgery - right hand, Hx Tonsillectomy - T/A - Immunizations Hx Diphtheria, Pertussis, Tetanus Vaccination: Yes Hx Pneumococcal Vaccination: 07/06/14 Review of Systems - Review of Systems Constitutional: See HPI EENT: See HPI Cardiovascular: No symptoms reported Respiratory: See HPI Gastrointestinal: No symptoms reported Genitourinary: No symptoms reported Male Genitourinary: No symptoms reported Musculoskeletal: No symptoms reported Skin: No symptoms reported Hematologic/Lymphatic: No symptoms reported Neurological/Psychological: No symptoms reported Physical Exam - Vital signs Vitals: Temp Pulse Resp BP Pulse Ox 99.3 F 95 20 197/109 H 96 06/06/19 18:57 06/06/19 18:57 06/06/19 18:57 06/06/19 18:57 06/06/19 18:57 - Notes Notes: GENERAL: Alert, interacts well. No acute distress. HEAD: Normocephalic, atraumatic. EYES: Pupils equal, round, and reactive to light. Extraocular movements intact. ENT: Oral mucosa moist, tongue midline. There is dental fracture in the right lower molar area with erythema of the gumline but no induration, fluctuance, or evidence of abscess. Normal oral exam otherwise. No swelling of the face. Oropharynx unremarkable. Airway patent. Minimal nasal congestion, no nasal septal hematoma, TM's intact. NECK: Full range of motion. Supple. Trachea midline. LUNGS: Clear to auscultation bilaterally, no wheezes, rales, or rhonchi. No respiratory distress. Occasional mild cough. HEART: Regular rate and rhythm. No murmur ABDOMEN: Soft, non-tender. Non-distended. EXTREMITIES: Moves all 4 extremities spontaneously. No edema, normal radial and dorsalis pedis pulses bilaterally. No cyanosis. BACK: no cervical, thoracic, lumbar midline tenderness. No saddle anesthesia, normal distal neurovascular exam. Moves all extremities in full range of motion. NEUROLOGICAL: Alert and oriented x3. Normal speech. Cranial nerves II through XII grossly intact. PSYCH: Normal affect, normal mood. SKIN: Warm, dry, normal turgor. No rashes or lesions noted. Course - Re-evaluation Re-evalutation: Patient is hypertensive but out of his regular medications. He has an upper respiratory infection that is resolving and only occasional mild cough with clear lungs and no hypoxia. He does have evidence of a dental infection but has no evidence of abscess. He is also out of his medications for diabetes and is requesting this as well. He does have primary care follow-up but does not have a dentist and is requesting referral. EKG, chest x-ray, troponin unremarkable. CBC, chemistry nonspecific with hyperglycemia but no acidosis. Chest x-ray unremarkable. Discussed with patient at length. We discussed the importance of his blood pressure and diabetes being controlled because of catastrophic consequences of them not being controlled, discussed follow-up and return precautions in regards to his evaluation and treatments. Patient states appreciation and agreement. Stable at time of discharge. - Vital Signs Vital signs: Temp Pulse Resp BP Pulse Ox 99.3 F 95 18 198/130 H 96 06/06/19 18:57 06/06/19 18:57 06/06/19 22:00 06/06/19 21:54 06/06/19 21:00 - Laboratory Result Diagrams: 06/06/19 20:23 06/06/19 20:35 Laboratory results interpreted by me: 06/06/19 06/06/19 06/06/19 19:39 20:23 20:35 WBC 11.1 H Glucose 247 H POC Glucose 259 H - EKG Interpretation by Me Additional EKG results interpreted by me: EKG shows borderline sinus tachycardia at a rate of 101, QTC of 441, normal axis, no T wave inversions or systemic changes in consecutive leads. Multiple PACs noted. Discharge - Discharge Clinical Impression: Cough, Dental infection, Essential hypertension, Tobacco abuse Chest pain Qualifiers: Chest pain type: unspecified Qualified Code(s): R07.9 - Chest pain, unspecified Condition: Stable Disposition: HOME, SELF-CARE Additional Instructions: Your evaluation is consistent with a dental infection but not an abscess at this time, take the antibiotics as prescribed, follow-up with the dental clinic listed below, call for your appointment. Your blood pressure is elevated, please take the refill of your blood pressure medication and follow-up with your primary care for additional adjustments. Your chest x-ray is unremarkable, your remaining labs are reassuring except for slightly elevated blood sugars. Stop smoking, upper respiratory infection symptoms should gradually resolve with time. Return if you worsen including swelling of the face, fever, difficulty breathing, or any other concerning or worsening symptoms. [facility] [address] [place] [address], [id number] Prescriptions: Amoxicillin Trihydrate [Amoxil 500 mg Capsule] 500 mg PO BID 10 Days #20 cap Lisinopril 20 mg PO DAILY #30 tablet Forms: Smoking Cessation Education, Return to Work Referrals: [facility] [NO LOCAL MD] - Follow up in 1 week
--- NOTE | 2019-06-06 20:24 | RADIOLOGY REPORT (SQ) ---
EXAM DESCRIPTION: XR CHEST 2 VIEWS COMPLETED DATE/TME: 06/06/2019 19:06 CLINICAL HISTORY: 28 years, Male, cough COMPARISON: Multiple priors, most recent from 04/12/2019 NUMBER OF VIEWS: Two TECHNIQUE: Frontal and lateral radiograph of the chest were acquired LIMITATIONS: None. FINDINGS: Cardiac and mediastinal contours are normal in appearance. Lungs are clear. No pleural effusion or pneumothorax. IMPRESSION: No acute disease. copyright 2010 [employer]- All Rights Reserved
[2019-06-06] MEDS ORDERED: OXYCODONE-ACETAMINOPHEN 5-325 MG TABLET PO ONE (20:29)
[2019-06-06] MEDS ORDERED: AMOXICILLIN TRIHYDRATE 500 MG CAPSULE PO ONE (20:29)
[2019-06-06 20:38] LABS: ABSOLUTE BASOPHILS # (AUTO) 0.1 10^3/uL (0.0-0.2); ABSOLUTE EOSINOPHILS # (AUTO) 0.3 10^3/uL (0.0-0.6); ABSOLUTE LYMPHOCYTES (AUTO) 3.5 10^3/uL (0.5-4.7); ABSOLUTE MONOCYTES (AUTO) 0.9 10^3/uL (0.1-1.4); ABSOLUTE NEUT (AUTO) 6.3 10^3/uL (1.7-8.2); EOSINOPHILS % (AUTO) 2.8 % (0-6); HEMATOCRIT 45.5 % (37.9-51.0); HEMOGLOBIN 15.4 g/dL (13.5-17.0); LYMPHOCYTES % (AUTO) 31.3 % (13-45); MEAN CORPUSCULAR HEMOGLOBIN 28.3 pg (27.0-33.4); MEAN CORPUSCULAR HGB CONC 33.9 g/dL (32.0-36.0); MEAN CORPUSCULAR VOLUME 83 fl (80-97); MONOCYTES % (AUTO) 8.1 % (3-13); RED BLOOD COUNT 5.46 10^6/uL (4.35-5.55); RED CELL DISTRIBUTION WIDTH 12.8 % (11.5-14.0); SEGMENTED NEUTROPHILS % (AUTO) 56.8 % (42-78); TOTAL CELLS COUNTED % (AUTO) 100 %; WHITE BLOOD COUNT 11.1 10^3/uL (4.0-10.5)
[2019-06-06 21:00] LABS: PLATELET COUNT 158 10^3/uL (150-450)
[2019-06-06 21:08] LABS: ALKALINE PHOSPHATASE 93 U/L (38-126); ANION GAP 8 (5-19); ASPARTATE AMINO TRANSFERASE 29 U/L (17-59); BILIRUBIN,DIRECT 0.2 mg/dL (0.0-0.4); BILIRUBIN,TOTAL 0.4 mg/dL (0.2-1.3); BLOOD UREA NITROGEN 8 mg/dL (7-20); CALCIUM 9.3 mg/dL (8.4-10.2); CARBON DIOXIDE 27 mmol/L (22-30); CHLORIDE 104 mmol/L (98-107); GLUCOSE 247 mg/dL (75-110); POTASSIUM 4.3 mmol/L (3.6-5.0)
[2019-06-06 21:22] LABS: NT PRO BNP 23 pg/mL (<125); TROPONIN I < 0.012 ng/mL
[2019-06-06] MEDS ORDERED: LISINOPRIL 10 MG TABLET PO ONE (21:44)
[2019-06-06] MEDS ORDERED: HYDROCODONE/ACETAMINOPHEN 5-325 MG (6 TAB/ER DISP) PO PRN (21:44)
[2019-06-06 22:07] VITALS: BP 198/130
--- NOTE | 2019-06-06 22:10 | EKG REPORT ---
SEVERITY:- ABNORMAL ECG - SINUS TACHYCARDIA ATRIAL PREMATURE COMPLEX BORDERLINE LEFT AXIS DEVIATION NONSPECIFIC T ABNORMALITIES, LATERAL LEADS : Confirmed by: Varsha Smith 06-Jun-2019 22:08:50
--- NOTE | 2019-06-08 09:06 | EKG REPORT ---
SEVERITY:- ABNORMAL ECG - SINUS TACHYCARDIA MULTIPLE ATRIAL PREMATURE COMPLEXES : Confirmed on behalf of: Varsha Smith 08-Jun-2019 09:06:27
== END 2019-06-06 22:14 | disposition home or self-care (01) ==
LOC: ER 18:33
DX: K04.7 Periapical abscess without sinus (principal); R05 Cough; R07.9 Chest pain, unspecified; K02.9 Dental caries, unspecified; R68.84 Jaw pain; I10 Essential (primary) hypertension; E11.9 Type 2 diabetes mellitus without complications; F17.200 Nicotine dependence, unspecified, uncomplicated; E78.00 Pure hypercholesterolemia, unspecified
CPT/HCPCS: 93005 ×2; 36415; 82962; 85025; 80053; 84484; 83880; 71046; 93010 ×2; J7620; 94640; 99285

== ENCOUNTER 2019-07-12 04:22 | Emergency (ER) | payer SELFPAY ==
[2019-07-12] MEDS ORDERED: MORPHINE SULFATE 10 MG/ML INJ IV ONE (05:11)
[2019-07-12 06:10] LABS: HEMATOCRIT 45.3 % (37.9-51.0); HEMOGLOBIN 15.5 g/dL (13.5-17.0); MEAN CORPUSCULAR HEMOGLOBIN 28.4 pg (27.0-33.4); MEAN CORPUSCULAR HGB CONC 34.3 g/dL (32.0-36.0); MEAN CORPUSCULAR VOLUME 83 fl (80-97); PLATELET COUNT 212 10^3/uL (150-450); RED BLOOD COUNT 5.47 10^6/uL (4.35-5.55); WHITE BLOOD COUNT 9.4 10^3/uL (4.0-10.5)
[2019-07-12 06:13] LABS: ALBUMIN 3.6 g/dL (3.5-5.0); ALKALINE PHOSPHATASE 107 U/L (38-126); ANION GAP 10 (5-19); ASPARTATE AMINO TRANSFERASE 26 U/L (17-59); BILIRUBIN,DIRECT 0.2 mg/dL (0.0-0.4); BILIRUBIN,TOTAL 0.4 mg/dL (0.2-1.3); BLOOD UREA NITROGEN 13 mg/dL (7-20); CALCIUM 9.6 mg/dL (8.4-10.2); CARBON DIOXIDE 25 mmol/L (22-30); CHLORIDE 103 mmol/L (98-107); CREATINE KINASE 165 U/L (55-170); GLUCOSE 297 mg/dL (75-110); POTASSIUM 3.7 mmol/L (3.6-5.0); TOTAL PROTEIN 6.4 g/dL (6.3-8.2)
[2019-07-12] MEDS: NORMAL SALINE 1000 ML 1,000 ML IV PRN ×2 (06:14→06:56)
--- NOTE | 2019-07-12 06:39 | ER Document Report ---
ED Blood Sugar Problem - General TRAVEL OUTSIDE OF THE [place] IN LAST 30 DAYS: No - Related Data Home Medications: lantus insulin, "fast acting insulin". lisinopril <CHRIS ESTRELLA - Last Filed: 07/12/19 06:40> <MARINOFAVIOLAMAHSACAMILO - Last Filed: 07/12/19 10:54> - General Chief Complaint: High Blood Sugar Stated Complaint: CRAMPING Time Seen by Provider: 07/12/19 05:10 Primary Care Provider: PIEDAD REYES MD [Primary Care Provider] - Follow up as needed Notes: 28-year-old male presents with cramping to bilateral sides that started yesterday. Patient denies any injury. Patient was also found to have elevated blood glucose. Patient is noncompliant diabetic. Patient denies any nausea, vomiting, abdominal pain, fevers, chest pain. Patient did state he had some shortness of breath earlier however denies any now. (CHRIS ESTRELLA) - Related Data Allergies/Adverse Reactions: ceftriaxone [From Rocephin] Adverse Reaction (Verified 03/15/19 14:11) VOMITING Past Medical History - Social History Smoking Status: Current Every Day Smoker Family History: DM Patient has suicidal ideation: No Patient has homicidal ideation: No - Past Medical History Cardiac Medical History: Reports: Hx Hypercholesterolemia, Hx Hypertension Pulmonary Medical History: Reports: Hx Asthma, Hx Bronchitis, Hx COPD, Hx Pneumonia, Hx Sleep Apnea Endocrine Medical History: Reports: Hx Diabetes Mellitus Type 2 Renal/ Medical History: Denies: Hx Peritoneal Dialysis Musculoskeletal Medical History: Reports Hx Musculoskeletal Trauma Psychiatric Medical History: Denies: Hx Depression Traumatic Medical History: Reports: Hx Fractures - Boxers Past Surgical History: Reports: Hx Adenoidectomy, Hx Orthopedic Surgery - right hand, Hx Tonsillectomy - T/A - Immunizations Hx Diphtheria, Pertussis, Tetanus Vaccination: Yes Hx Pneumococcal Vaccination: 07/06/14 <CHRIS ESTRELLA - Last Filed: 07/12/19 06:40> Review of Systems <CHRIS ESTRELLA - Last Filed: 07/12/19 06:40> - Review of Systems Notes: Constitutional: Negative for fever. HENT: Negative for sore throat. Eyes: Negative for visual changes. Cardiovascular: Negative for chest pain. Respiratory: Negative for shortness of breath. Gastrointestinal: Negative for abdominal pain, vomiting or diarrhea. Genitourinary: Negative for dysuria. Musculoskeletal: Negative for back pain. Skin: Negative for rash. Neurological: Negative for headaches, weakness or numbness. 10 point ROS negative except as marked above and in HPI. Positive for cramping. (CHRIS ESTRELLA) Physical Exam <CHRIS ESTRELLA - Last Filed: 07/12/19 06:40> - Vital signs Vitals: Temp Pulse Resp BP Pulse Ox 98.6 F 115 H 16 157/101 H 88 L 07/12/19 04:32 07/12/19 04:32 07/12/19 04:32 07/12/19 04:32 07/12/19 04:32 - Notes Notes: GENERAL: Well-appearing, well-nourished, obese and in no acute distress. HEAD: Atraumatic, normocephalic. EYES: Extraocular movements intact, sclera anicteric, conjunctiva are normal. NECK: Normal range of motion, supple without lymphadenopathy or JVD. LUNGS: Breath sounds clear to auscultation bilaterally and equal. No wheezes rales or rhonchi. HEART: Regular rate and rhythm without murmurs, rubs or gallops. ABDOMEN: Soft, nontender. No guarding, no rebound. No masses appreciated. EXTREMITIES: Normal range of motion, no pitting or edema. No clubbing or cyanosis. NEUROLOGICAL: Cranial nerves II through XII grossly intact. Normal speech, normal gait. PSYCH: Normal mood, normal affect. SKIN: Warm, Dry, normal turgor, no rashes or lesions noted. (CHRIS ESTRELLA) Course - Laboratory Result Diagrams: 07/12/19 05:45 07/12/19 05:45 <CHRIS ESTRELLA - Last Filed: 07/12/19 06:40> - Laboratory Result Diagrams: 07/12/19 05:45 07/12/19 05:45 <ROBERTO PICHARDO - Last Filed: 07/12/19 10:54> - Re-evaluation Re-evalutation: 07/12/19 28-year-old male presents with side cramping that started yesterday. Patient was found to have an elevated blood glucose in triage. Work-up initiated. Including chest x-ray due to earlier dyspnea. Patient is well- appearing, nontoxic. Lungs clear to auscultation bilaterally. Regular rate and rhythm. Abdomen soft nontender. (CHRIS ESTRELLA) 07/12/19 08:20 Bedside report and handoff received from HERI Estrella. Advises letting IV fluids infuse and reevaluating patient. Plans for discharge after IV fluid administration. 07/12/19 10:50 Patient resting with eyes closed, arouses easily to voice. Patient denies any pain symptoms at this time. Patient states that he typically gets this lateral side pain about twice a week chronically for several months. Patient states this typically if he twists or if he has a coughing fit. Patient states that he did have a coughing fit this morning which preempted his symptoms. Abdomen is soft, no guarding. Offered patient imaging for further evaluation, patient declines at this time. Patient states that he does have his diabetic medications at home and just has to remember to check his sugar and take his medicine as prescribed. (ROBERTO PICHARDO) - Vital Signs Vital signs: Temp Pulse Resp BP Pulse Ox 98 F 115 H 20 155/93 H 95 07/12/19 08:24 07/12/19 04:36 07/12/19 10:00 07/12/19 09:01 07/12/19 08:24 - Laboratory Laboratory results interpreted by me: 07/12/19 07/12/19 07/12/19 04:40 05:45 05:45 Band Neutrophils % 1 L Glucose 297 H POC Glucose 374 H 07/12/19 07/12/19 07:33 10:35 Band Neutrophils % Glucose POC Glucose 235 H 218 H Discharge <CHRIS ESTRELLA - Last Filed: 07/12/19 06:40> <ROBERTO PICHARDO - Last Filed: 07/12/19 10:54> - Discharge Clinical Impression: Side pain Diabetes Qualifiers: Diabetes mellitus type: other specified (including EDDY) Diabetes mellitus terminal manager insulin use: with fdc use Diabetes mellitus complication status: with hyperglycemia Qualified Code(s): E13.65 - Other specified diabetes mellitus with hyperglycemia; Z79.4 - ocean transportation intermediary (current) use of insulin Sleep apnea Qualifiers: Sleep apnea type: unspecified type Qualified Code(s): G47.30 - Sleep apnea, unspecified Condition: Stable Disposition: HOME, SELF-CARE Instructions: Abdominal Pain ([facility]), Diabetes ([facility]) Additional Instructions: Return immediately for any new or worsening symptoms: Return of abdominal pain symptoms, fever, vomiting or any new or concerning symptoms Followup with your primary care provider, call tomorrow to make a followup appointment Your primary doctor can make a referral for sleep study so that you can get evaluated for your sleep apnea and prescribed a CPAP machine. Forms: Return to Work Referrals: PIEDAD REYES MD [Primary Care Provider] - Follow up tomorrow
[2019-07-12 07:15] LABS: ABSOLUTE LYMPHOCYTES# (MANUAL) 3.3 10^3/uL (0.5-4.7); ABSOLUTE MONOCYTES # (MANUAL) 0.9 10^3/uL (0.1-1.4); BAND NEUTROPHILS % (MANUAL) 1 % (3-5); BASOPHILS % (MANUAL) 0 % (0-2); EOSINOPHILS % (MANUAL) 4 % (0-6); LYMPHOCYTES % (MANUAL) 35 % (13-45); MONOCYTES % (MANUAL) 10 % (3-13); PLATELET COMMENT ADEQUATE; RBC MORPHOLOGY COMMENT NORMO-CYTIC/CHROMIC; SEGMENTED NEUTROPHILS % (MAN) 50 % (42-78); TOTAL CELLS COUNTED 100
[2019-07-12 07:27] LABS: URINE AMPHETAMINES SCREEN NEGATIVE; URINE BARBITURATES SCREEN NEGATIVE; URINE BENZODIAZEPINES SCREEN NEGATIVE; URINE COCAINE SCREEN NEGATIVE; URINE METHADONE SCREEN NEGATIVE; URINE PHENCYCLIDINE SCREEN NEGATIVE
--- NOTE | 2019-07-12 07:27 | RADIOLOGY REPORT (SQ) ---
EXAM DESCRIPTION: XR CHEST 2 VIEWS COMPLETED DATE/TME: 07/12/2019 05:12 CLINICAL HISTORY: pain COMPARISON: 04/12/2019 FINDINGS: Frontal and lateral views of the chest. Cardiomediastinal silhouette: Normal size and contour. Lungs: No consolidation, pneumothorax, or pleural effusion. Bones: No acute osseous abnormality. Leads overlie the chest. Upper abdomen: No abnormality identified. IMPRESSION: 1. No acute pulmonary process identified.
[2019-07-12 07:28] LABS: URINE MARIJUANA (THC) SCREEN UNCONFIRMED POSITIVE
[2019-07-12] MEDS ORDERED: KETOROLAC TROMETHAMINE INJ/PF 30 MG/1 ML SDV IV ONE (07:37)
--- NOTE | 2019-07-12 10:36 | EKG REPORT ---
SEVERITY:- BORDERLINE ECG - SINUS TACHYCARDIA BORDERLINE T WAVE ABNORMALITIES : Confirmed by: Eran Joseph MD 12-Jul-2019 10:35:04
[2019-07-12 10:50] VITALS: BP 152/89
== END 2019-07-12 11:06 | disposition home or self-care (01) ==
LOC: ER 04:22
DX: G47.30 Sleep apnea, unspecified (principal); E13.65 Other specified diabetes mellitus with hyperglycemia; R10.9 Unspecified abdominal pain; I10 Essential (primary) hypertension; F17.200 Nicotine dependence, unspecified, uncomplicated; Z79.4 Long term (current) use of insulin; E78.00 Pure hypercholesterolemia, unspecified
CPT/HCPCS: 93005; 99285; 36415; 82962; 82550; 83690; 85025; 80053; 80307; 71046; 93010; J1885; J2270; J7030

== ENCOUNTER 2019-08-22 14:57 | Emergency (ER) | payer SELFPAY ==
[2019-08-22] MEDS ORDERED: CLINDAMYCIN HCL 150 MG CAPSULE PO ONE (16:15)
[2019-08-22] MEDS ORDERED: IBUPROFEN 800 MG TABLET PO ONE (16:16)
--- NOTE | 2019-08-22 16:22 | ER Document Report ---
HPI - HPI Time Seen by Provider: 08/22/19 16:07 Pain Level: 4 Context: Patient is a 28-year-old male with a history of hypertension and diabetes who presents to the emergency department with a chief complaint of right lower dental pain. Patient reports this is been present for about 2 days. Patient reports he has had dental pain and infection in this same location in the past. Patient reports he has [facility] but states every time he attempts to call them they do not answer. Patient reports he has attempted to take some old penicillin that is 3 years old at home with minimal late relief. Patient reports he has been taking Tylenol. Patient reports that he wanted to get seen before the infection got worse. Patient denies difficulty breathing or swallowing. Patient denies fever. - CONSTITUTIONAL Constitutional: DENIES: Fever, Chills - REPRODUCTIVE Reproductive: DENIES: : Past Medical History - General Information source: Patient - Social History Smoking Status: Never Smoker Chew tobacco use (# tins/day): No Frequency of alcohol use: None Drug Abuse: None Family History: DM Patient has suicidal ideation: No Patient has homicidal ideation: No - Past Medical History Cardiac Medical History: Reports: Hx Hypercholesterolemia, Hx Hypertension Pulmonary Medical History: Reports: Hx Asthma, Hx Bronchitis, Hx COPD, Hx Pneumonia, Hx Sleep Apnea Endocrine Medical History: Reports: Hx Diabetes Mellitus Type 2 Renal/ Medical History: Denies: Hx Peritoneal Dialysis Musculoskeletal Medical History: Reports Hx Musculoskeletal Trauma Psychiatric Medical History: Denies: Hx Depression Traumatic Medical History: Reports: Hx Fractures - Boxers Past Surgical History: Reports: Hx Adenoidectomy, Hx Orthopedic Surgery - right hand, Hx Tonsillectomy - T/A - Immunizations Hx Diphtheria, Pertussis, Tetanus Vaccination: Yes Hx Pneumococcal Vaccination: 07/06/14 Vertical Provider Document - CONSTITUTIONAL Agree With Documented VS: Yes Exam Limitations: No Limitations General Appearance: No Apparent Distress - INFECTION CONTROL TRAVEL OUTSIDE OF THE [place] IN LAST 30 DAYS: No - HEENT HEENT: Atraumatic, Normal ENT Exam, Normocephalic, PERRLA Mouth Diagram: 1 - Poor dentation with erythematous gums, no palpable abscess. Notes: Slight right lower facial swelling. Uvula is midline. - NECK Neck: Normal Inspection - Lab Course - Re-evaluation Re-evalutation: 08/22/19 16:40 Patient noted to be more hypertensive at time of discharge. Please see vital sign trend. Will give dose of lisinopril 20 mg as the patient has not had his dose today. Patient reports he is having significant right lower dental pain. We will also incorporate 1 of Percocet while he is here in the emergency department. We will continue with discharge plan. Patient updated as well as family member and denies questions at this time. 08/22/19 17:24 Patient no acute distress and nontoxic-appearing. Patient's blood pressure systolic in the 180s, diastolic 99. Will discharge the patient. Patient is asymptomatic without headache, dizziness, chest pain. - Vital Signs Vital signs: Temp Pulse Resp BP Pulse Ox 98.4 F 109 H 24 H 154/100 H 96 08/22/19 15:04 08/22/19 15:04 08/22/19 15:04 08/22/19 15:04 08/22/19 15:04 Discharge - Discharge Clinical Impression: Pain, dental Condition: Stable Disposition: HOME, SELF-CARE Instructions: Clindamycin ([facility]), Toothache ([facility]) Additional Instructions: Today was seen emergency department for dental pain. Your symptoms and physical examination are consistent with a dental infection. We have given you your first dose of oral antibiotics here in the emergency department. I am placing you on clindamycin. This is a strong antibiotic that you will take 3 times daily for the next week. Ultimately you do need to follow-up with a dentist. Please [facility]. I have attached the information for you to the discharge instructions. Take the anti-inflammatory 800 mg ibuprofen as needed for pain. Dental Infection or Abscess You have an infection, perhaps an abscess (pus formation) of the gum around one of your teeth, which is probably decayed. If there is an abscess, it may drain on its own or it may need to be opened or lanced. Severe swelling or drainage around a tooth usually means a deep dental abscess which usually requires evaluation and treatment by a dentist or oral surgeon. Antibiotics may be prescribed while awaiting dental treatment. If you develop high fever with chills, worsening pain, or increasing swelling in the area, see a dentist or oral surgeon immediately or return to the Emergency Department immediately. Prescriptions: Clindamycin HCl [Cleocin HCl] 450 mg PO TID 7 Days #63 capsule Ibuprofen [Motrin 800 mg Tablet] 800 mg PO Q8H PRN #30 tab PRN Reason: Forms: Return to Work Referrals: PIEDAD REYES MD [Primary Care Provider] - Follow up as needed [facility] [Provider Group] - Follow up as needed
[2019-08-22] MEDS ORDERED: OXYCODONE-ACETAMINOPHEN 5-325 MG TABLET PO ONE (16:36)
[2019-08-22] MEDS ORDERED: LISINOPRIL 10 MG TABLET PO ONE (16:39)
[2019-08-22 17:25] VITALS: BP 184/99
== END 2019-08-22 17:29 | disposition home or self-care (01) ==
LOC: ER 14:57
DX: K08.9 Disorder of teeth and supporting structures, unspecified (principal); J45.909 Unspecified asthma, uncomplicated; E11.9 Type 2 diabetes mellitus without complications; E78.00 Pure hypercholesterolemia, unspecified; I10 Essential (primary) hypertension
CPT/HCPCS: 99282

== ENCOUNTER 2019-10-01 13:33 | Inpatient (IN) | payer SELFPAY ==
--- NOTE | 2019-10-01 13:52 | ER Document Report ---
ED Medical Screen (RME) - General Chief Complaint: Congestion Stated Complaint: COUGH,CONGESTION,HEADACHE Time Seen by Provider: 10/01/19 13:44 Primary Care Provider: PIEDAD REYES MD [Primary Care Provider] - Follow up as needed Mode of Arrival: Ambulatory Information source: Patient Notes: 28-year-old male presented to ED for acute asthma exacerbation. He states he is used his rescue inhaler and his breathing treatment at home and continues to be very short of breath. His respirations are between 28 and 32 in the pit area. His O2 sats between 89 and 91. His blood pressure was 162/92. He states he is supposed to take lisinopril and did not take it this morning. Pulse is 112. He is very short of breath with pain to the center of his chest his back and has some other achy areas to joints. He states he has not taken his temperature but he is afebrile in the emergency room. Patient is very short of breath. I have greeted and performed a rapid initial assessment of this patient. A comprehensive ED assessment and evaluation of the patient, analysis of test results and completion of medical decision making process will be conducted by an additional ED providers. TRAVEL OUTSIDE OF THE [place] IN LAST 30 DAYS: No - Related Data Allergies/Adverse Reactions: ceftriaxone [From Rocephin] Adverse Reaction (Verified 08/22/19 16:04) VOMITING Past Medical History - Past Medical History Cardiac Medical History: Reports: Hx Hypercholesterolemia, Hx Hypertension Pulmonary Medical History: Reports: Hx Asthma, Hx Bronchitis, Hx COPD, Hx Pneumonia, Hx Sleep Apnea Endocrine Medical History: Reports: Hx Diabetes Mellitus Type 2 Renal/ Medical History: Denies: Hx Peritoneal Dialysis Musculoskeltal Medical History: Reports Hx Musculoskeletal Trauma Psychiatric Medical History: Denies: Hx Depression Traumatic Medical History: Reports: Hx Fractures - Boxers Past Surgical History: Reports: Hx Adenoidectomy, Hx Orthopedic Surgery - right hand, Hx Tonsillectomy - T/A - Immunizations Hx Diphtheria, Pertussis, Tetanus Vaccination: Yes Physical Exam - Vital signs Vitals: Temp Pulse Resp BP Pulse Ox 98.8 F 112 H 28 H 171/112 H 91 L 10/01/19 13:40 10/01/19 13:40 10/01/19 13:40 10/01/19 13:40 10/01/19 13:40 Course - Vital Signs Vital signs: Temp Pulse Resp BP Pulse Ox 98.8 F 112 H 28 H 171/112 H 91 L 10/01/19 13:40 10/01/19 13:40 10/01/19 13:40 10/01/19 13:40 10/01/19 13:40 Doctor's Discharge - Discharge Referrals: PIEDAD REYES MD [Primary Care Provider] - Follow up as needed
[2019-10-01] MEDS ORDERED: IPRATROPIUM/ALBUTEROL 0.5-2.5 MG/3 ML AMPUL NEB ONE (13:54)
[2019-10-01 14:48] LABS: ABSOLUTE BASOPHILS # (AUTO) 0.1 10^3/uL (0.0-0.2); ABSOLUTE EOSINOPHILS # (AUTO) 0.1 10^3/uL (0.0-0.6); ABSOLUTE LYMPHOCYTES (AUTO) 1.1 10^3/uL (0.5-4.7); ABSOLUTE MONOCYTES (AUTO) 0.6 10^3/uL (0.1-1.4); ABSOLUTE NEUT (AUTO) 4.1 10^3/uL (1.7-8.2); BASOPHILS % (AUTO) 0.9 % (0-2); EOSINOPHILS % (AUTO) 1.4 % (0-6); HEMOGLOBIN 14.4 g/dL (13.5-17.0); LYMPHOCYTES % (AUTO) 18.4 % (13-45); MEAN CORPUSCULAR HEMOGLOBIN 28.5 pg (27.0-33.4); MEAN CORPUSCULAR HGB CONC 34.2 g/dL (32.0-36.0); MEAN CORPUSCULAR VOLUME 83 fl (80-97); MONOCYTES % (AUTO) 10.1 % (3-13); PLATELET COUNT 227 10^3/uL (150-450); RED BLOOD COUNT 5.05 10^6/uL (4.35-5.55); RED CELL DISTRIBUTION WIDTH 12.7 % (11.5-14.0); SEGMENTED NEUTROPHILS % (AUTO) 69.2 % (42-78); TOTAL CELLS COUNTED % (AUTO) 100 %; WHITE BLOOD COUNT 5.9 10^3/uL (4.0-10.5)
[2019-10-01 15:15] LABS: ALBUMIN 3.7 g/dL (3.5-5.0); ALKALINE PHOSPHATASE 82 U/L (38-126); ANION GAP 10 (5-19); ASPARTATE AMINO TRANSFERASE 28 U/L (17-59); BILIRUBIN,DIRECT 0.2 mg/dL (0.0-0.4); BILIRUBIN,TOTAL 0.6 mg/dL (0.2-1.3); BLOOD UREA NITROGEN 6 mg/dL (7-20); CALCIUM 8.7 mg/dL (8.4-10.2); CARBON DIOXIDE 28 mmol/L (22-30); CHLORIDE 101 mmol/L (98-107); GLUCOSE 263 mg/dL (75-110); POTASSIUM 3.5 mmol/L (3.6-5.0); TOTAL PROTEIN 6.7 g/dL (6.3-8.2)
--- NOTE | 2019-10-01 15:55 | RADIOLOGY REPORT (SQ) ---
EXAM DESCRIPTION: CHEST 2 VIEWS COMPLETED DATE/TIME: 10/01/2019 3:31 pm REASON FOR STUDY: Chest pain shortness of breath COMPARISON: 2019 TECHNIQUE: Frontal and lateral radiographic views of the chest acquired. NUMBER OF VIEWS: Two view. LIMITATIONS: None. FINDINGS: LUNGS AND PLEURA: Low lung volumes. Right middle lobe opacity, volume loss and airspace d isease consistent with pneumonia. Lesser changes in the left lower lobe. No pneumothorax. MEDIASTINUM AND HILAR STRUCTURES: No masses or contour abnormalities. HEART AND VASCULAR STRUCTURES: Heart normal size. No evidence for failure. BONES: No acute findings. HARDWARE: None in the chest. OTHER: No other significant finding. IMPRESSION: Right middle lobe pneumonia. TECHNICAL DOCUMENTATION: JOB ID: [id number] 2010 [employer]- All Rights Reserved Reading location - IP/workstation name: [email or web address]
[2019-10-01] MEDS ORDERED: METHYLPREDNISOLONE INJ 125 MG/2 ML SDV IV ONE (16:43)
[2019-10-01] MEDS ORDERED: ALBUTEROL SULFATE 0.083% NEB 2.5 MG/3 ML AMPUL NEB ONE (16:43)
[2019-10-01] MEDS ORDERED: MAGNESIUM SULFATE/D5W 1 GM/100 ML RTUPB IV ONE ×2 (16:48)
[2019-10-01] MEDS ORDERED: LEVOFLOXACIN 500 MG/D5W RTU 500 MG/100 ML RTUPB IV ONE (16:49)
--- NOTE | 2019-10-01 16:53 | ER Document Report ---
ED General - General Chief Complaint: Shortness Of Breath Stated Complaint: COUGH,CONGESTION,HEADACHE Time Seen by Provider: 10/01/19 13:44 Primary Care Provider: PIEDAD REYES MD [NO LOCAL MD] - Follow up as needed Mode of Arrival: Ambulatory TRAVEL OUTSIDE OF THE [place] IN LAST 30 DAYS: No - HPI Notes: Patient is a 28-year-old male with a history of asthma, hypertension, diabetes who presents complaining of having a cough for the past 1 to 2 days with development of shortness of breath and wheezing that began yesterday. Patient has been using his inhaler with minimal relief. He does continue to feel wheezy shortness of breath and having some chest tightness. He is urinating normally and having normal bowel movements. Denies any headache, fever, neck pain, URI, sore throat, palpitations, syncope, abdominal pain, nausea/vomiting/diarrhea, urinary retention, dysuria, hematuria, or rash. - Related Data Allergies/Adverse Reactions: ceftriaxone [From Rocephin] Adverse Reaction (Verified 10/01/19 13:49) VOMITING Home Medications: lantus. lisinopril Past Medical History - General Information source: Patient - Social History Smoking Status: Current Every Day Smoker Chew tobacco use (# tins/day): No Frequency of alcohol use: Occasional Drug Abuse: None Family History: DM Patient has suicidal ideation: No Patient has homicidal ideation: No - Past Medical History Cardiac Medical History: Reports: Hx Hypercholesterolemia, Hx Hypertension Pulmonary Medical History: Reports: Hx Asthma, Hx Bronchitis, Hx COPD, Hx Pneumonia, Hx Sleep Apnea Endocrine Medical History: Reports: Hx Diabetes Mellitus Type 2 Renal/ Medical History: Denies: Hx Peritoneal Dialysis Musculoskeletal Medical History: Reports Hx Musculoskeletal Trauma Psychiatric Medical History: Denies: Hx Depression Traumatic Medical History: Reports: Hx Fractures - Boxers Past Surgical History: Reports: Hx Adenoidectomy, Hx Orthopedic Surgery - right hand, Hx Tonsillectomy - T/A - Immunizations Hx Diphtheria, Pertussis, Tetanus Vaccination: Yes Hx Pneumococcal Vaccination: 07/06/14 Review of Systems - Review of Systems -: Yes All other systems reviewed and negative Physical Exam - Vital signs Vitals: Temp Pulse Resp BP Pulse Ox 98.8 F 112 H 28 H 171/112 H 91 L 10/01/19 13:40 10/01/19 13:40 10/01/19 13:40 10/01/19 13:40 10/01/19 13:40 - Notes Notes: PHYSICAL EXAMINATION: GENERAL: Well-appearing, well-nourished and in mild resp distress. HEAD: Atraumatic, normocephalic. EYES: Pupils equal round and reactive to light, extraocular movements intact, sclera anicteric, conjunctiva are normal. ENT: Nares patent and without discharge. oropharynx clear without exudates. No tonsilar hypertrophy or erythema. Moist mucous membranes. NECK: Normal range of motion, supple without lymphadenopathy LUNGS: scant crackle anterior rt chest. no retractions. + tachypnea and wheezes b/l. HEART: Regular rate and rhythm without murmurs, rubs, gallops. ABDOMEN: Soft, nontender, nondistended abdomen. No guarding, no rebound. Normal bowel sounds present. No CVA tenderness bilaterally. Musculoskeletal: FROM to passive/active. Strength 5+/5. Germán neg. No asymmetry to LE's. Extremities: Trace pitting edema b/l LE's. Peripheral pulses 2+. Capillary refill less than 3 seconds. NEUROLOGICAL: Normal speech, normal gait. PSYCH: Normal mood, normal affect. SKIN: Warm, Dry, normal turgor, no rashes or lesions noted. Course - Re-evaluation Re-evalutation: 10/01/19 16:52 Patient is an afebrile 28-year-old male who presents with a right middle lobe pneumonia superimposed on his asthma. Vitals are currently 116 heart rate, 90% on 2 L, respirating at 26 breaths/min. He does have wheezing bilaterally and scant crackles to the right anterior chest. I have ordered Solu-Medrol, magnesium, and more breathing treatments. He is also going to be receiving IV antibiotic. We will monitor his glucose with the steroid use, but I believe the benefit outweighs the risk at this time. 10/01/19 18:05 Patient's vitals have not improved despite measures taken. Patient will be admitted to the telemetry floor, accepted by Dr. Ellington. Patient in agreement with plan. - Vital Signs Vital signs: Temp Pulse Resp BP Pulse Ox 98.8 F 112 H 28 H 171/112 H 91 L 10/01/19 13:40 10/01/19 13:40 10/01/19 13:40 10/01/19 13:40 10/01/19 17:33 - Laboratory Result Diagrams: 10/01/19 14:30 10/01/19 14:30 Laboratory results interpreted by me: 10/01/19 10/01/19 14:30 17:30 Potassium 3.5 L BUN 6 L Glucose 263 H Lactic Acid 2.5 H Discharge - Discharge Clinical Impression: Hypoxia Right middle lobe pneumonia Qualifiers: Pneumonia type: due to unspecified organism Qualified Code(s): J18.9 - Pneumonia, unspecified organism Condition: Stable Disposition: ADMITTED INPATIENT Admitting Provider: Rakel (Hospitalist) Unit Admitted: Telemetry Referrals: PIEDAD REYES MD [NO LOCAL MD] - Follow up as needed
--- NOTE | 2019-10-01 17:28 | EKG REPORT ---
SEVERITY:- BORDERLINE ECG - SINUS TACHYCARDIA BORDERLINE T WAVE ABNORMALITIES : Confirmed by: Eran Joseph MD 01-Oct-2019 17:28:32
[2019-10-01 17:38] LABS: VENOUS BLOOD BASE EXCESS 1.1 mmol/L; VENOUS BLOOD HCO3 26.3 mmol/L (20-32); VENOUS BLOOD PCO2 44.1 mmHg (35-63); VENOUS BLOOD PH 7.39 (7.30-7.42)
[2019-10-01] MEDS ORDERED: NORMAL SALINE 1000 ML 1,000 ML IV PRN (19:16)
[2019-10-01] MEDS ORDERED: LEVALBUTEROL HCL NEB 1.25 MG/3 ML AMPUL NEB PRN (19:32)
[2019-10-01] MEDS ORDERED: DEXTROSE 40% GEL 15 GM TUBE PO PRN ×2 (19:42)
[2019-10-01] MEDS ORDERED: GLUCAGON,HUMAN RECOMB 1 MG INJ IM PRN (19:42)
[2019-10-01] MEDS ORDERED: DEXTROSE 50%-WATER 25 GM/50 ML DISP.SYRIN IV PRN ×2 (19:42)
[2019-10-01 20:29] LABS: ARTERIAL BLOOD BASE EXCESS -0.8 mmol/L; ARTERIAL BLOOD H2CO3 1.17 mmol/L (1.05-1.35); ARTERIAL BLOOD HCO3 23.7 mmol/L (20-24); ARTERIAL BLOOD TOTAL CO2 24.9 mmol/L (23-27)
[2019-10-01 20:35] LABS: ARTERIAL BLOOD FIO2 4L
[2019-10-01 20:36] LABS: ARTERIAL BLOOD O2 SATURATION 70.2 % (94-98); ARTERIAL BLOOD PO2 36.6 mmHg (80-100)
[2019-10-01] MEDS ORDERED: HYDRALAZINE HCL INJ/PF 20 MG/1 ML SDV IV PRN (20:45)
[2019-10-01] MEDS: LEVALBUTEROL HCL NEB 1.25 MG/3 ML AMPUL NEB SCH (20:49)
[2019-10-01] MEDS: BUDESONIDE NEB 0.5 MG/2 ML AMPUL NEB SCH (20:49)
[2019-10-01] MEDS ORDERED: NICOTINE 7 MG/24 HR PATCH.TD24 TD PRN (20:52)
--- NOTE | 2019-10-01 20:58 | PDOC H&P ---
History of Present Illness Admission Date/PCP: 10/01/19 18:32 BROOKE REYES MD Patient complains of: Acute onset shortness of breath History of Present Illness: KIRK CHARLES is a 28 year old male with morbid obesity, insulin-dependent diabetes mellitus and hypertension. He states that last evening he began to cough. He coughed up white sputum. There was no blood or discoloration. He then began to have chills with some disorientation. He had very little energy. He had difficulty sleeping and earlier today he felt so weak it was difficult to get out of bed and he proceeded to the emergency department. He does report that several siblings have viral illnesses currently. In the emergency department his chest x-ray was suggestive of pneumonia. Initial vital signs showed a blood pressure of 171/112 with a pulse of 112. Respiratory rate was 28 and his oxygen saturation was 91% on room air. This declined quickly. Over the course of his evaluation emergency department the oxygen demand kept increasing. Finally he was on 4 L nasal cannula with an oxygen saturation in the 88% to 90% range. He was given 125 mg of Solu-Medrol x1. He was given magnesium sulfate 1 g x 2 doses. He also received nebulizer treatment. CBC was normal. Chem istries revealed a potassium of 3.5 and a glucose of 263. Lactic acid was 2.5. 750 mg of levofloxacin was then ordered. He was referred to the hospitalist service for admission. Past Medical History Cardiac Medical History: Reports: Hyperlipidema, Hypertension Pulmonary Medical History: Reports: Asthma, Bronchitis, Chronic Obstructive Pulmonary Disease (COPD), Pneumonia, Sleep Apnea Endocrine Medical History: Reports: Diabetes Mellitus Type 2 Renal/ Medical History: Denies: Chronic Kidney Disease Malignancy Medical History: Reports: None GI Medical History: Reports: None Musculoskeltal Medical History: Reports: Other - Right hand boxer fracture Skin Medical History: Reports: None Psychiatric Medical History: Reports: Tobacco Dependency Denies: Depression Hematology: Reports: None Infectious Medical History: Reports: Other Infectious History Note: Recurrent tooth abscess right mandible Past Surgical History Past Surgical History: Reports: Orthopedic Surgery - right hand, Tonsillectomy - T/A Social History Information Source: Patient Lives with: Family Smoking Status: Current Every Day Smoker Electronic Cigarette use?: No Frequency of Alcohol Use: Occasional Hx Recreational Drug Use: Yes Drugs: Marijuana Hx Prescription Drug Abuse: No - Advance Directive Resuscitation Status: Full Code Family History Family History: DM Parental Family History Reviewed: Yes Children Family History Reviewed: NA Sibling(s) Family History Reviewed.: Yes Medication/Allergy Home Medications: Insulin Glargine,Hum.rec.anlog [Lantus Insulin 100 Unit/mL Insulin Pen] 35 unit SUBCUT Q12 02/01/18 Lisinopril 20 mg PO DAILY #30 tablet 06/06/19 Allergies/Adverse Reactions: ceftriaxone [From Rocephin] Adverse Reaction (Verified 10/01/19 13:49) VOMITING Review of Systems All systems: reviewed and no additional remarkable complaints except as stated Constitutional: PRESENT: chills, fatigue Respiratory: PRESENT: cough, dyspnea Neurological: PRESENT: confusion Psychiatric: PRESENT: anxiety Physical Exam Vital Signs: Temp Pulse Resp BP Pulse Ox 98.8 F 112 H 37 H 171/112 H 88 L 10/01/19 13:40 10/01/19 13:40 10/01/19 19:00 10/01/19 13:40 10/01/19 19:00 Intake & Output 09/30/19 10/01/19 10/02/19 06:59 06:59 06:59 Intake Total 200 Balance 200 Weight 175.8 kg General appearance: PRESENT: cooperative, morbidly obese, severe distress, well- developed, well-nourished Head exam: PRESENT: atraumatic, normocephalic Eye exam: PRESENT: conjunctiva pink, EOMI. ABSENT: scleral icterus Ear exam: PRESENT: normal external ear exam. ABSENT: bleeding, drainage Mouth exam: PRESENT: dry mucosa, tongue midline Respiratory exam: PRESENT: rhonchi - Left base, symmetrical, tachypnea - With labored breathing, wheezes - Sporadic expiratory wheeze. ABSENT: accessory muscle use, rales, retraction, stridor Cardiovascular exam: PRESENT: +S1, +S2, tachycardia. ABSENT: diastolic murmur, gallop, systolic murmur GI/Abdominal exam: PRESENT: normal bowel sounds, soft, other - Protuberant abdomen. ABSENT: guarding, tenderness Rectal exam: PRESENT: deferred Gentrourinary exam: ABSENT: indwelling catheter Extremities exam: PRESENT: pedal edema Musculoskeletal exam: PRESENT: ambulatory. ABSENT: full ROM - Limited by his morbid obesity Neurological exam: PRESENT: alert, awake, oriented to person, oriented to place, oriented to time, oriented to situation, CN II-XII grossly intact. ABSENT: motor sensory deficit Psychiatric exam: PRESENT: anxious. ABSENT: agitated Focused psych exam: ABSENT: delusional, paranoid, restlessness Skin exam: PRESENT: dry, normal color, warm. ABSENT: rash Results Laboratory Results: 10/01/19 14:30 10/01/19 14:30 10/01/19 10/01/19 10/01/19 14:30 14:30 17:30 WBC 5.9 RBC 5.05 Hgb 14.4 Hct 42.0 MCV 83 MCH 28.5 MCHC 34.2 RDW 12.7 Plt Count 227 Seg Neutrophils % 69.2 VBG pH VBG pCO2 VBG HCO3 VBG Base Excess Sodium 138.8 Potassium 3.5 L Chloride 101 Carbon Dioxide 28 Anion Gap 10 BUN 6 L Creatinine 0.63 Est GFR ( Amer) > 60 Glucose 263 H Lactic Acid 2.5 H Calcium 8.7 Magnesium 1.6 Total Bilirubin 0.6 AST 28 Alkaline Phosphatase 82 Total Protein 6.7 Albumin 3.7 10/01/19 17:30 WBC RBC Hgb Hct MCV MCH MCHC RDW Plt Count Seg Neutrophils % VBG pH 7.39 VBG pCO2 44.1 VBG HCO3 26.3 VBG Base Excess 1.1 Sodium Potassium Chloride Carbon Dioxide Anion Gap BUN Creatinine Est GFR ( Amer) Glucose Lactic Acid Calcium Magnesium Total Bilirubin AST Alkaline Phosphatase Total Protein Albumin 10/01/19 10/01/19 14:30 14:30 Troponin I < 0.012 NT-Pro-B Natriuret Pep 18 Impressions: Chest X-Ray 10/01/19 13:53 IMPRESSION: Right middle lobe pneumonia. Assessment and Plan - Diagnosis (1) Acute respiratory failure with hypoxia Is this a current diagnosis for this admission?: Yes Plan: 10/01/2019 The patient exhibits acute respiratory failure with hypoxia. Over the course of several hours his oxygen need has jumped to 4 L nasal cannula and this barely keeps his oxygen saturation in the greater than 90% range. He has underlying asthma. He is a daily smoker. He has pneumonia on chest x-ray. We will continue to supply oxygen to keep saturation greater than or equal to 92%. We will continue to treat the underlying predisposing pathologies and try to wean the patient from oxygen back to room air as tolerated. (2) RML pneumonia Qualifiers: Pneumonia type: due to unspecified organism Qualified Code(s): J18.9 - Pneumonia, unspecified organism Is this a current diagnosis for this admission?: Yes Plan: 10/01/2019 Several people in the patient's family have a flulike illness. The acute onset of this episode as well as the chest x-ray make it more than likely an infectious source. He does have a normal white blood cell count. This could be a bad viral pneumonitis as well. I did add influenza screening to his testing regimen. He will be on levofloxacin and doxycycline to cover a broad spectrum of bacteria including atypical infectious agents as well as staph and strep organisms. (3) Hypertensive urgency Is this a current diagnosis for this admission?: Yes Plan: 10/01/2019 The patient's initial blood pressure was 171/112. Unfortunately no antihypertensive medications had been administered initially. The patient did get intravenous methylprednisolone. In addition to the lisinopril 20 mg I have ordered amlodipine 5 mg twice a day and intravenous hydralazine 10 mg every 8 hours if needed for systolic blood pressure greater than 160 or diastolic blood pressure greater than 100. The patient will be monitored on telemetry as well as obtaining vital signs at least every 4 hours.. He may need further adjustm ents in his antihypertensive medication. Unfortunately it is difficult to know his baseline range as well as compliance with medications. We already know that he is not compliant with a cardiac diet. (4) Hypokalemia Is this a current diagnosis for this admission?: Yes Plan: 10/01/2019 The patient has a potassium just below the lower limit normal. Considering his glucose it corrects to the lower limit normal range. He is going to get some fluid and he will be receiving insulin and so I have ordered 20 mEq of potassium chloride x1 dose for now. I expect his potassium may drop further. I have ordered blood work for the morning. (5) Hyperglycemia due to type 2 diabetes mellitus Qualifiers: Diabetes mellitus intermediate insulin use: with intermediate card tender use Qualified Cod e(s): E11.65 - Type 2 diabetes mellitus with hyperglycemia; Z79.4 - FPC (current) use of insulin Is this a current diagnosis for this admission?: Yes Plan: 10/01/2019 The patient is on Lantus 35 units twice a day. He does not use a sliding scale. There are no other medications. Based on the discussion during this encounter the patient does not follow a cardiac/diabetic diet either. The patient will be on a carbohydrate controlled #4/cardiac diet. He will have Accu-Cheks with meals and at bedtime. In addition to his 35 units of Lantus twice a day he will be on a sliding scale of Humalog. I did order a hemoglobin A1c for the morning to get an idea of his compliance. (6) Tobacco dependence Is this a current diagnosis for this admission?: Yes Plan: The patient smokes 5 cigarettes a day per his reporting. A nicotine patch will be made available if needed. Will encourage smoking cessation. (7) Morbid obesity with BMI of 50.0-59.9, adult Is this a current diagnosis for this admission?: Yes Plan: 10/01/2019 The patient's super morbid obesity is working against him. He may very well have sleep apnea, pulmonary hypertension and other risk factors. Additionally it makes it very difficult to breathe and he may very well have obesity hypoventilation on top of his asthma and possibly COPD. Will try to encourage weight loss. He will be on a controlled carbohydrate cardiac diet during his hospitalization. - Plan Summary Summary: 10/01/2019 After the initial encounter the patient's was exhibiting increased work of breathing and requiring increased supplemental oxygen. The patient's lactic acid was also elevated at 2.5. Orders were written for intravenous fluid and repeat lactic acid level in several hours. In addition I reached out to the import/export analyst nurse practitioner and requested a formal consult. We did revisit the patient together. We requested an arterial blood gas (venous blood gas was obtained earlier) and a CT angiogram of the chest to rule out pulmonary embolism. I also ordered influenza screening. Once the results of these studies are available the installment dealer and import/export analyst nurse practitioner will di scuss the case and decide a final disposition of the intensive care unit or the IMCU. - Time Time Spent with patient: 35 or more minutes Smoking Cessation Education: 3 to 10 minutes Medications reviewed and adjusted accordingly: Yes - Inpatient Certification Based on my medical assessment, after consideration of the patient's comorbidities, presenting symptoms, or acuity I expect that the services needed warrant INPATIENT care.: Yes I certify that my determination is in accordance with my understanding of Medicare's requirements for reasonable and necessary INPATIENT services [42 CFR 412.3e].: Yes Medical Necessity: Need For IV Fluids, Need For Continuous Telemetry Monitoring, Need for Nebulizer Therapy and Monitoring of Response, Need for IV Antibiotics, Risk of Complication if Not Cared For in Hospital Post Hospital Care: D/C Research Food Technologist Documentation
[2019-10-01] MEDS ORDERED: POTASSIUM CHLORIDE 10 MEQ TABLET.ER PO ONE (21:30)
[2019-10-01] MEDS ORDERED: AMLODIPINE BESYLATE 5 MG TABLET PO SCH (22:00)
--- NOTE | 2019-10-01 22:08 | RADIOLOGY REPORT (SQ) ---
EXAM DESCRIPTION: CT CHEST ANGIOGRAPHY WITHOUT THEN WITH IV CONTRAST COMPLETED DATE/TME: 10/01/2019 20:05 CLINICAL HISTORY: 28 years Male SOB, CHEST PAIN. COMPARISON: 11/21/2017. TECHNIQUE: Contiguous axial images were obtained through the chest during the infusion of IV contrast. Reformatted images obtained. MIP reformatted images obtained. This exam was performed according to our department optimization program which includes automated exposure control, adjustment of the mA and/or kv according to patient size and/or use of iterative reconstruction technique. FINDINGS: The bolus of contrast is not adequate for evaluation for pulmonary emboli. Mean Hounsfield units in the main pulmonary artery 142. Segmental and subsegmental emboli cannot be excluded on the basis of this exam. Atelectasis in the lingula and left lung base as well as in the right middle and lower lobe. Small amount of underlying infiltrate is not excluded. Enlarged fatty liver. Enlarged spleen. No pericardial or pleural effusion. Aorta is normal in caliber. No evidence of dissection. No significant mediastinal adenopathy. IMPRESSION: Examination is inadequate for evaluation of pulmonary embolus secondary to missed bolus of contrast No evidence aortic dissection Hepatosplenomegaly Areas of atelectasis in the lung bases bilaterally particularly in the right middle and lower lobe. Small amount of associated infiltrate cannot be entirely excluded
[2019-10-01] MEDS: HEPARIN SOD (PORCINE) 5,000 UNIT/ML 1 ML VIAL SUBCUT SCH (23:09)
[2019-10-01] MEDS: FAMOTIDINE 20 MG TABLET PO SCH (23:09)
[2019-10-01] MEDS: GUAIFENESIN 600 MG TABLET.SA PO SCH (23:09)
[2019-10-01] MEDS: AMLODIPINE BESYLATE 5 MG TABLET PO SCH (23:09)
--- NOTE | 2019-10-01 23:10 | PDOC CONSULTATION ---
Consultation Consult Date: 10/01/19 Provider Consulted: PAOLA PIEDRA Consult reason:: Hypoxia, Tachypnea History of Present Illness Admission Date/PCP: 09/30/18 History of Present Illness: Mr. Yo is a very pleasant 28yr old AA male with PMH of morbid obesity, HTN, DM, tobacco abuse and asthama. Pt presented to the ED today with complaints of SOB, dyspnea with wheezing and cough that began last night. Pt states that he has been taking his medications as prescribed. Denies N/V/D. Reports no sputum with cough. No chest pain at the time of the exam but stated he had some prior to coming to the ED. ICU was consulted for concerns with concerns for hypoxia and tachypnea. Past Medical History Cardiac Medical History: Reports: Hyperlipidema, Hypertension Pulmonary Medical History: Reports: Asthma, Bronchitis, Chronic Obstructive Pulmonary Disease (COPD), Pneumonia, Sleep Apnea Endocrine Medical History: Reports: Diabetes Mellitus Type 2 Renal/ Medical History: Denies: Chronic Kidney Disease Malignancy Medical History: Reports: None GI Medical History: Reports: None Musculoskeltal Medical History: Reports: Other - Right hand boxer fracture Skin Medical History: Reports: None Psychiatric Medical History: Reports: Tobacco Dependency Denies: Depression Hematology: Reports: None Infectious Medical History: Reports: Other Past Surgical History Past Surgical History: Reports: Orthopedic Surgery - right hand, Tonsillectomy - T/A Social History Lives with: Family Smoking Status: Current Every Day Smoker Electronic Cigarette use?: No Frequency of Alcohol Use: Occasional Hx Recreational Drug Use: Yes Drugs: Marijuana Hx Prescription Drug Abuse: No - Advance Directive Resuscitation Status: Full Code Family History Family History: DM Parental Family History Reviewed: No Children Family History Reviewed: No Sibling(s) Family History Reviewed.: No Medication/Allergy Home Medications: Insulin Glargine,Hum.rec.anlog [Lantus Insulin 100 Unit/mL Insulin Pen] 35 unit SUBCUT Q12 02/01/18 Lisinopril 20 mg PO DAILY #30 tablet 06/06/19 Allergies/Adverse Reactions: ceftriaxone [From Rocephin] Adverse Reaction (Verified 10/01/19 13:49) VOMITING Review of Systems Constitutional: PRESENT: chills, fever(s). ABSENT: anorexia Nose, Mouth, and Throat: ABSENT: headache(s), sore throat Cardiovascular: PRESENT: chest pain, dyspnea on exertion. ABSENT: edema, palpitations Respiratory: PRESENT: cough, dyspnea. ABSENT: sputum Gastrointestinal: ABSENT: abdominal pain, diarrhea, nausea, vomiting Integumentary: PRESENT: diaphoresis Neurological: ABSENT: dizziness, weakness Physical Exam Vital Signs: Temp Pulse Resp BP Pulse Ox 98.5 F 118 H 22 H 171/112 H 88 L 10/01/19 21:15 10/01/19 20:49 10/01/19 20:49 10/01/19 13:40 10/01/19 20:49 Intake & Output 09/30/19 10/01/19 10/02/19 06:59 06:59 06:59 Intake Total 300 Balance 300 Weight 175.8 kg Physical Exam: Young AA male sitting up in bed in mild respiratory distress, asking for water t o drink and stating he is feeling hot. Pt is able to speak in full sentences without worsening dyspnea or signifcant alteration in pulse ox. On the monitor he is in sinus tach to 125 and has a blood pressure of 176 systolic. On review of the chart, there is a documented BP of ~170 around 1400; pt stated he was unsure what his normal BP was but it is not normally this high. General appearance: PRESENT: mild distress, morbidly obese Head exam: PRESENT: atraumatic, normocephalic Eye exam: PRESENT: conjunctiva pink, EOMI Ear exam: PRESENT: normal external ear exam Mouth exam: PRESENT: moist, neck supple Neck exam: ABSENT: JVD, tracheal deviation Respiratory exam: PRESENT: crackles - scattered worse at the bases, decreased breath sounds, tachypnea. ABSENT: wheezes Cardiovascular exam: PRESENT: tachycardia Pulses: PRESENT: normal radial pulses GI/Abdominal exam: PRESENT: normal bowel sounds. ABSENT: guarding, tenderness Neurological exam: PRESENT: alert, awake, oriented to person, oriented to place, oriented to time, oriented to situation, CN II-XII grossly intact Psychiatric exam: PRESENT: appropriate affect Focused psych exam: ABSENT: restlessness Skin exam: PRESENT: warm, other - diaphoretic Results Laboratory Results: 10/01/19 14:30 10/01/19 14:30 10/01/19 10/01/19 10/01/19 14:30 14:30 17:30 WBC 5.9 RBC 5.05 Hgb 14.4 Hct 42.0 MCV 83 MCH 28.5 MCHC 34.2 RDW 12.7 Plt Count 227 Seg Neutrophils % 69.2 Carbonic Acid HCO3/H2CO3 Ratio ABG pH ABG pCO2 ABG pO2 ABG HCO3 ABG O2 Saturation ABG Base Excess VBG pH VBG pCO2 VBG HCO3 VBG Base Excess FiO2 Sodium 138.8 Potassium 3.5 L Chloride 101 Carbon Dioxide 28 Anion Gap 10 BUN 6 L Creatinine 0.63 Est GFR ( Amer) > 60 Glucose 263 H Lactic Acid 2.5 H Calcium 8.7 Magnesium 1.6 Total Bilirubin 0.6 AST 28 Alkaline Phosphatase 82 Total Protein 6.7 Albumin 3.7 10/01/19 10/01/19 17:30 20:06 WBC RBC Hgb Hct MCV MCH MCHC RDW Plt Count Seg Neutrophils % Carbonic Acid 1.17 HCO3/H2CO3 Ratio 20:1 ABG pH 7.40 ABG pCO2 39.0 ABG pO2 36.6 L* ABG HCO3 23.7 ABG O2 Saturation 70.2 L ABG Base Excess -0.8 VBG pH 7.39 VBG pCO2 44.1 VBG HCO3 26.3 VBG Base Excess 1.1 FiO2 4L Sodium Potassium Chloride Carbon Dioxide Anion Gap BUN Creatinine Est GFR ( Amer) Glucose Lactic Acid Calcium Magnesium Total Bilirubin AST Alkaline Phosphatase Total Protein Albumin 10/01/19 10/01/19 14:30 14:30 Troponin I < 0.012 NT-Pro-B Natriuret Pep 18 Impressions: Chest X-Ray 10/01/19 13:53 IMPRESSION: Right middle lobe pneumonia. Chest/Abdomen CTA 10/01/19 20:05 IMPRESSION: Examination is inadequate for evaluation of pulmonary embolus secondary to missed bolus of contrast No evidence aortic dissection Hepatosplenomegaly Areas of atelectasis in the lung bases bilaterally particularly in the right middle and lower lobe. Small amount of associated infiltrate cannot be entirely excluded Assessment & Plan - Diagnosis (1) Hypertensive urgency Is this a current diagnosis for this admission?: Yes (2) RML pneumonia Qualifiers: Pneumonia type: due to unspecified organism Qualified Code(s): J18.9 - Pneumonia, unspecified organism Is this a current diagnosis for this admission?: Yes (3) Acute respiratory failure with hypoxia Is this a current diagnosis for this admission?: Yes - Time Time Spent: 30 to 50 Minutes - Plan Summary Plan Summary: Pt seen and examined in the ED with hospitalists at bedside. Recommendations for blood pressure management and CTA were give while RN was obtaining ABG that hospitalists had ordered. CTA ordered. After review of the labs, ABG, medical history and physical exam, the patient does not meet ICU admission criteria at this time. Please call if there are any further concerns. Thank you
[2019-10-01] MEDS ORDERED: DOXYCYCLINE HYCLATE INJ 100 MG VIAL ONE (23:13)
[2019-10-01] MEDS: DOXYCYCLINE HYCLATE 100 MG in DEXTROSE 5%-WATER 250 ML IV SCH (23:41)
[2019-10-01] MEDS: INSULIN LISPRO 100 UNIT/ML 3 ML VIAL SUBCUT SCH (23:42)
[2019-10-01] MEDS: INSULIN GLARGINE,HUM.REC.ANLOG 1,000 UNIT/10 ML VIAL SUBCUT SCH (23:42)
[2019-10-02] MEDS ORDERED: INFLUENZA QUAD (6MOS+) 2019-20 VAC 0.5 ML SYR IM ONE (01:42)
[2019-10-02] MEDS: LEVALBUTEROL HCL NEB 1.25 MG/3 ML AMPUL NEB SCH ×4 (02:59→19:46)
[2019-10-02 06:25] LABS: ABSOLUTE LYMPHOCYTES (AUTO) 0.8 10^3/uL (0.5-4.7); ABSOLUTE MONOCYTES (AUTO) 0.4 10^3/uL (0.1-1.4); ABSOLUTE NEUT (AUTO) 7.1 10^3/uL (1.7-8.2); BASOPHILS % (AUTO) 0.4 % (0-2); HEMATOCRIT 40.4 % (37.9-51.0); HEMOGLOBIN 14.1 g/dL (13.5-17.0); LYMPHOCYTES % (AUTO) 9.8 % (13-45); MEAN CORPUSCULAR HEMOGLOBIN 28.9 pg (27.0-33.4); MEAN CORPUSCULAR HGB CONC 34.8 g/dL (32.0-36.0); MEAN CORPUSCULAR VOLUME 83 fl (80-97); MONOCYTES % (AUTO) 4.2 % (3-13); PLATELET COUNT 251 10^3/uL (150-450); RED BLOOD COUNT 4.86 10^6/uL (4.35-5.55); RED CELL DISTRIBUTION WIDTH 13.2 % (11.5-14.0); SEGMENTED NEUTROPHILS % (AUTO) 85.6 % (42-78); TOTAL CELLS COUNTED % (AUTO) 100 %; WHITE BLOOD COUNT 8.4 10^3/uL (4.0-10.5)
[2019-10-02 06:35] LABS: ANION GAP 11 (5-19); BLOOD UREA NITROGEN 10 mg/dL (7-20); CALCIUM 9.3 mg/dL (8.4-10.2); CARBON DIOXIDE 23 mmol/L (22-30); CHLORIDE 104 mmol/L (98-107); GLUCOSE 345 mg/dL (75-110)
[2019-10-02 06:53] LABS: POTASSIUM 4.7 mmol/L (3.6-5.0)
[2019-10-02] MEDS: HEPARIN SOD (PORCINE) 5,000 UNIT/ML 1 ML VIAL SUBCUT SCH ×3 (07:03→22:04)
[2019-10-02] MEDS: BUDESONIDE NEB 0.5 MG/2 ML AMPUL NEB SCH ×2 (08:12→19:46)
[2019-10-02] MEDS ORDERED: (PENDING PHARMACY ID) (Lisinopril [Lisinopril] 20 MG) PO SCH (10:00)
[2019-10-02] MEDS: LISINOPRIL 10 MG TABLET PO SCH (10:02)
[2019-10-02] MEDS: FAMOTIDINE 20 MG TABLET PO SCH ×2 (10:03→22:03)
[2019-10-02] MEDS: INSULIN LISPRO 100 UNIT/ML 3 ML VIAL SUBCUT SCH ×6 (10:03→22:04)
[2019-10-02] MEDS: GUAIFENESIN 600 MG TABLET.SA PO SCH ×2 (10:03→22:03)
[2019-10-02] MEDS: AMLODIPINE BESYLATE 5 MG TABLET PO SCH ×2 (10:03→22:03)
[2019-10-02] MEDS: INSULIN GLARGINE,HUM.REC.ANLOG 1,000 UNIT/10 ML VIAL SUBCUT SCH ×2 (10:04→22:04)
[2019-10-02] MEDS: DOXYCYCLINE HYCLATE 100 MG in DEXTROSE 5%-WATER 250 ML IV SCH (10:05)
[2019-10-02] MEDS ORDERED: INSULIN REG, HUMAN 100 UNIT/ML 3 ML VIAL (PYX) IV ONE (15:33)
[2019-10-02] MEDS ORDERED: NORMAL SALINE 1000 ML 1,000 ML IV ONE (15:33)
--- NOTE | 2019-10-02 15:55 | PDOC PROGRESS REPORT ---
Subjective Progress Note for:: 10/02/19 Subjective:: Patient states that he still feels short of breath. States that his family members have the flu recently but he thought that this was what he was having. Denies any chest pain. Patient does state that he takes Lantus 35 units twice a day but often requires to take. Up to 4 times a day because his blood sugar runs high all the time. Reason For Visit: PNEUMONIA,DIABETES,HYPERTENSION,MORBID OBESITY Physical Exam Vital Signs: Temp Pulse Resp BP Pulse Ox 98.1 F 104 H 20 147/77 H 92 10/02/19 11:37 10/02/19 14:15 10/02/19 14:15 10/02/19 11:37 10/02/19 14:15 Pulse Oximeter Continuous Start: 10/01/19 19:34 Freq: RTQ4 Status: Active Protocol: Document 10/02/19 12:00 [facility] (Rec: 10/02/19 12:00 L[facility] [id number]) Pulse Oximetry Assessment Oxygen Saturation (92-100) 90 Oxygen Flow Rate (L/min) 6 Oxygen Delivery Method Nasal Cannula Fraction of Inspired Oxygen (FIO2) 44 Equipment Usage Equipment in Use Continuous SpO2 Machine # 6 Intake & Output 10/01/19 10/02/19 10/03/19 06:59 06:59 06:59 Intake Total 910 720 Output Total 600 1125 Balance 310 -405 Weight 174.4 kg 174.4 kg General appearance: PRESENT: no acute distress, cooperative Neck exam: ABSENT: JVD Respiratory exam: PRESENT: symmetrical, unlabored, wheezes - Mild. ABSENT: crackles, tachypnea Cardiovascular exam: PRESENT: RRR, +S1, +S2. ABSENT: tachycardia GI/Abdominal exam: PRESENT: normal bowel sounds, soft. ABSENT: rebound, rigid, tenderness Neurological exam: PRESENT: alert, awake, oriented to person, oriented to place, oriented to time, oriented to situation Results Laboratory Results: 10/02/19 05:52 10/02/19 05:52 10/01/19 10/01/19 10/01/19 17:30 17:30 20:06 WBC RBC Hgb Hct MCV MCH MCHC RDW Plt Count Seg Neutrophils % Carbonic Acid 1.17 HCO3/H2CO3 Ratio 20:1 ABG pH 7.40 ABG pCO2 39.0 ABG pO2 36.6 L* ABG HCO3 23.7 ABG O2 Saturation 70.2 L ABG Base Excess -0.8 VBG pH 7.39 VBG pCO2 44.1 VBG HCO3 26.3 VBG Base Excess 1.1 FiO2 4L Sodium Potassium Chloride Carbon Dioxide Anion Gap BUN Creatinine Est GFR ( Amer) Glucose Lactic Acid 2.5 H Calcium Magnesium 10/01/19 10/02/19 10/02/19 22:14 05:52 05:52 WBC 8.4 RBC 4.86 Hgb 14.1 Hct 40.4 MCV 83 MCH 28.9 MCHC 34.8 RDW 13.2 Plt Count 251 Seg Neutrophils % 85.6 H Carbonic Acid HCO3/H2CO3 Ratio ABG pH ABG pCO2 ABG pO2 ABG HCO3 ABG O2 Saturation ABG Base Excess VBG pH VBG pCO2 VBG HCO3 VBG Base Excess FiO2 Sodium 137.6 Potassium 4.7 D Chloride 104 Carbon Dioxide 23 Anion Gap 11 BUN 10 Creatinine 0.55 Est GFR ( Amer) > 60 Glucose 345 H Lactic Acid 2.5 H Calcium 9.3 Magnesium 2.0 10/01/19 10/01/19 14:30 14:30 Troponin I < 0.012 NT-Pro-B Natriuret Pep 18 Impressions: Chest X-Ray 10/01/19 13:53 IMPRESSION: Right middle lobe pneumonia. Chest/Abdomen CTA 10/01/19 20:05 IMPRESSION: Examination is inadequate for evaluation of pulmonary embolus secondary to missed bolus of contrast No evidence aortic dissection Hepatosplenomegaly Areas of atelectasis in the lung bases bilaterally particularly in the right middle and lower lobe. Small amount of associated infiltrate cannot be entirely excluded Assessment and Plan - Diagnosis (1) Acute respiratory failure with hypoxia Is this a current diagnosis for this admission?: Yes Plan: Notably significantly hypoxic for his age. SPO2 of low 90s on 6 L nasal cannula. Chest CTA was performed which show significant bilateral atelectasis but no clear infiltrates though some infiltrates could be obscured by atelectasis. Unfortunately the CTA missed the bolus and as such was not effective in assessing for PE. I will leave patient on Levaquin for now but I will discontinue doxycycline. Patient's bilateral atelectasis may be playing a strong role in patient's hypoxia and as such we will treat aggressively with chest physiotherapy, frequent incentive spirometer and CPAP at nighttime to help with lung recruitment. If no improvement in hypoxia with resolution/treatment of atelectasis, may need to reevaluate for PE. Will check d-dimer with a.m. labs. (2) Atelectasis Is this a current diagnosis for this admission?: Yes Plan: Plan as above (3) Asthma with acute exacerbation in adult Qualifiers: Asthma severity: moderate Asthma persistence: persistent Qualified Code( s): J45.41 - Moderate persistent asthma with (acute) exacerbation Is this a current diagnosis for this admission?: Yes Plan: Frequent nebulizer treatments. Received Solu-Medrol 125 mg upon admission. Will continue on prednisone 20 mg daily given elevated blood sugars. Check influenza. (4) Hyperglycemia due to type 2 diabetes mellitus Qualifiers: Diabetes mellitus motorbike courier insulin use: with motorbike courier use Qualified Code(s): E11.65 - Type 2 diabetes mellitus with hyperglycemia; Z79.4 - half-way (current) use of insulin Is this a current diagnosis for this admission?: Yes Plan: The patient is on Lantus 35 units twice a day but states that he takes the Lantus up to 4 times a day sometimes because his blood sugars are always high. Hemoglobin A1c is over 11. Patient's diabetes is very poorly controlled at the moment blood sugar over 400s. Patient will need a more intensive regimen. In addition to his 35 units of Lantus twice daily, I will add pre-meal 16 units lispro and sliding scale. We will give a one-time dose of 10 IV regular insulin and bolus of normal saline. Will uptitrate female lispro as needed. (5) Hypertensive urgency Is this a current diagnosis for this admission?: Yes Plan: BP improved today. He is currently on his home dose of lisinopril 20 mg daily and amlodipine 5 mg twice a day was added. (6) Morbid obesity with BMI of 50.0-59.9, adult Is this a current diagnosis for this admission?: Yes Plan: The patient's super morbid obesity is working against him. He may very well have sleep apnea and would likely benefit from an outpatient sleep study. (7) Tobacco dependence Is this a current diagnosis for this admission?: Yes Plan: The patient smokes 5 cigarettes a day per his reporting. A nicotine patch will be made available if needed. Will encourage smoking cessation. - Time Time Spent with patient: 15-24 minutes
[2019-10-02] MEDS: LEVOFLOXACIN 750 MG/D5W RTU 750 MG/150 ML RTUPB IV SCH (17:40)
[2019-10-03] MEDS ORDERED: LORAZEPAM INJ 2 MG/1 ML VIAL IV PRN (00:20)
[2019-10-03] MEDS ORDERED: METOPROLOL TARTRATE PF/INJ 5 MG/5 ML SDV IV PRN (00:21)
[2019-10-03] MEDS: LEVALBUTEROL HCL NEB 1.25 MG/3 ML AMPUL NEB SCH ×4 (03:18→20:09)
[2019-10-03] MEDS: HEPARIN SOD (PORCINE) 5,000 UNIT/ML 1 ML VIAL SUBCUT SCH ×3 (05:12→22:14)
[2019-10-03] MEDS ORDERED: HYDRALAZINE HCL INJ/PF 20 MG/1 ML SDV IV PRN (05:30)
[2019-10-03 07:20] LABS: ANION GAP 10 (5-19)
[2019-10-03 07:24] LABS: BLOOD UREA NITROGEN 10 mg/dL (7-20); CALCIUM 8.5 mg/dL (8.4-10.2); CARBON DIOXIDE 25 mmol/L (22-30); CHLORIDE 101 mmol/L (98-107); GLUCOSE 386 mg/dL (75-110); POTASSIUM 4.3 mmol/L (3.6-5.0)
[2019-10-03] MEDS: INSULIN LISPRO 100 UNIT/ML 3 ML VIAL SUBCUT SCH ×8 (08:08→22:12)
[2019-10-03] MEDS: ACETAMINOPHEN 325 MG TABLET PO PRN ×2 (08:10→14:26)
[2019-10-03] MEDS: BUDESONIDE NEB 0.5 MG/2 ML AMPUL NEB SCH (08:33)
[2019-10-03] MEDS: AMLODIPINE BESYLATE 5 MG TABLET PO SCH ×2 (10:28→22:10)
[2019-10-03] MEDS: GUAIFENESIN 600 MG TABLET.SA PO SCH ×2 (10:28→22:10)
[2019-10-03] MEDS: INSULIN GLARGINE,HUM.REC.ANLOG 1,000 UNIT/10 ML VIAL SUBCUT SCH ×2 (10:29→22:11)
[2019-10-03] MEDS: PREDNISONE 20 MG TABLET PO SCH (10:29)
[2019-10-03] MEDS: FAMOTIDINE 20 MG TABLET PO SCH ×2 (10:29→22:10)
[2019-10-03] MEDS: LISINOPRIL 10 MG TABLET PO SCH (10:29)
--- NOTE | 2019-10-03 18:04 | PDOC PROGRESS REPORT ---
Subjective Progress Note for:: 10/03/19 Subjective:: No adverse events overnight. No new complaints. He says his breathing feels a little bit better. While he was asleep his oxygen was off and his SPO2 was 88% and he was snoring. When he woke up and sat up his SPO2 came up to 92% on room air and he looks comfortable. Reason For Visit: PNEUMONIA,DIABETES,HYPERTENSION,MORBID OBESITY Physical Exam Vital Signs: Temp Pulse Resp BP Pulse Ox 98.9 F 114 H 24 H 147/96 H 92 10/03/19 12:00 10/03/19 14:00 10/03/19 14:00 10/03/19 12:00 10/03/19 14:00 Pulse Oximeter Continuous Start: 10/01/19 19:34 Freq: RTQ4 Status: Active Protocol: Document 10/03/19 15:16 [facility] (Rec: 10/03/19 15:16 [facility] [id number]) Pulse Oximetry Assessment Equipment Usage Equipment Standby Continuous SpO2 Machine # 6 Intake & Output 10/02/19 10/03/19 10/04/19 06:59 06:59 07:59 Intake Total 910 1640 Output Total 600 2875 Balance 310 -1235 Weight 174.4 kg 175.4 kg General appearance: PRESENT: no acute distress, cooperative, disheveled, morbid ly obese Respiratory exam: PRESENT: clear to auscultation clarisa, decreased breath sounds, symmetrical, unlabored. ABSENT: accessory muscle use, crackles, prolonged expiratory phas, retraction, rhonchi, tachypnea, wheezes Cardiovascular exam: PRESENT: RRR, +S1, +S2 Pulses: PRESENT: normal carotid pulses Vascular exam: PRESENT: normal capillary refill GI/Abdominal exam: PRESENT: normal bowel sounds, soft. ABSENT: distended, guarding, rebound, tenderness Extremities exam: ABSENT: clubbing, pedal edema Musculoskeletal exam: PRESENT: normal inspection. ABSENT: deformity Neurological exam: PRESENT: alert, awake, oriented to person, oriented to place, oriented to situation Psychiatric exam: PRESENT: appropriate affect, normal mood Skin exam: PRESENT: dry, warm Results Laboratory Results: 10/02/19 05:52 10/03/19 06:32 10/03/19 06:32 Sodium 135.5 L Potassium 4.3 Chloride 101 Carbon Dioxide 25 Anion Gap 10 BUN 10 Creatinine 0.65 Est GFR ( Amer) > 60 Glucose 386 H Calcium 8.5 10/01/19 10/01/19 14:30 14:30 Troponin I < 0.012 NT-Pro-B Natriuret Pep 18 Impressions: Chest X-Ray 10/01/19 13:53 IMPRESSION: Right middle lobe pneumonia. Chest/Abdomen CTA 10/01/19 20:05 IMPRESSION: Examination is inadequate for evaluation of pulmonary embolus secondary to missed bolus of contrast No evidence aortic dissection Hepatosplenomegaly Areas of atelectasis in the lung bases bilaterally particularly in the right middle and lower lobe. Small amount of associated infiltrate cannot be entirely excluded Assessment and Plan - Diagnosis (1) Hyperglycemia due to type 2 diabetes mellitus Qualifiers: Diabetes mellitus mcfp insulin use: with mcfp use Qualified Code(s): E11.65 - Type 2 diabetes mellitus with hyperglycemia; Z79.4 - medical terminologist (current) use of insulin Is this a current diagnosis for this admission?: Yes Plan: He is on a fairly aggressive insulin regimen. I have stopped his inhaled steroids and would like to be able to stop his prednisone. We will see how his breathing is doing tomorrow. He is not wheezing at this point and so hopefully we can discontinue steroids and just use PRN bronchodilators. (2) Hypertensive urgency Is this a current diagnosis for this admission?: Yes Plan: On multiple medications, blood pressure has improved from yesterday. We will continue to adjust regimen as necessary. (3) Morbid obesity with BMI of 50.0-59.9, adult Is this a current diagnosis for this admission?: Yes Plan: I have strongly encouraged lifestyle modification (4) RML pneumonia Qualifiers: Pneumonia type: due to unspecified organism Qualified Code(s): J18.9 - Pneumonia, unspecified organism Is this a current diagnosis for this admission?: Yes Plan: Continue Levaquin, cultures pending (5) Acute respiratory failure with hypoxia Is this a current diagnosis for this admission?: Yes Plan: I think this is resolved. There is a component of obesity hypoventilation, but when he was sitting up in bed on room air his pulse ox was 92%. - Time Time Spent with patient: 15-24 minutes
[2019-10-03] MEDS: LEVOFLOXACIN 750 MG/D5W RTU 750 MG/150 ML RTUPB IV SCH (18:28)
[2019-10-04] MEDS: LEVALBUTEROL HCL NEB 1.25 MG/3 ML AMPUL NEB SCH ×4 (03:10→19:51)
[2019-10-04] MEDS: HEPARIN SOD (PORCINE) 5,000 UNIT/ML 1 ML VIAL SUBCUT SCH ×3 (05:55→21:36)
[2019-10-04] MEDS: INSULIN LISPRO 100 UNIT/ML 3 ML VIAL SUBCUT SCH ×7 (08:26→21:36)
[2019-10-04] MEDS: LISINOPRIL 10 MG TABLET PO SCH (09:34)
[2019-10-04] MEDS: PREDNISONE 20 MG TABLET PO SCH (09:35)
[2019-10-04] MEDS: INSULIN GLARGINE,HUM.REC.ANLOG 1,000 UNIT/10 ML VIAL SUBCUT SCH ×2 (09:35→21:39)
[2019-10-04] MEDS: GUAIFENESIN 600 MG TABLET.SA PO SCH ×2 (09:35→21:37)
[2019-10-04] MEDS: AMLODIPINE BESYLATE 5 MG TABLET PO SCH ×2 (09:35→21:37)
[2019-10-04] MEDS: FAMOTIDINE 20 MG TABLET PO SCH ×2 (09:36→21:36)
[2019-10-04] MEDS ORDERED: LEVOFLOXACIN 750 MG TABLET PO SCH (18:00)
--- NOTE | 2019-10-04 18:04 | PDOC PROGRESS REPORT ---
Subjective Progress Note for:: 10/04/19 Subjective:: No adverse events overnight. He says his chest feels better. He still has to cough if he takes a deep breath but he feels like he has been able to rest a little bit better. He has been reported as being on anywhere from 4 to 6 L of oxygen to keep his pulse oximetry in the low 90s, but his oxygen was off and I came in the room and his SPO2 on room air while he was talking to me was 92 to 93%. We lost IV access on him and his antibiotics were switched to p.o. Reason For Visit: PNEUMONIA,DIABETES,HYPERTENSION,MORBID OBESITY Physical Exam Vital Signs: Temp Pulse Resp BP Pulse Ox 98.2 F 110 H 22 H 112/83 93 10/04/19 16:08 10/04/19 16:08 10/04/19 16:08 10/04/19 16:08 10/04/19 16:08 Pulse Oximeter Continuous Start: 10/01/19 19:34 Freq: RTQ4 Status: Active Protocol: Document 10/04/19 16:00 [facility] (Rec: 10/04/19 16:11 [facility] [email or web address]) Pulse Oximetry Assessment Oxygen Saturation (92-100) 93 Oxygen Flow Rate (L/min) 6 Oxygen Delivery Method Nasal Cannula Fraction of Inspired Oxygen (FIO2) 44 Equipment Usage Equipment in Use Continuous SpO2 Machine # 6 Intake & Output 10/03/19 10/04/19 10/05/19 05:59 06:59 06:59 Intake Total Output Total Balance Weight General appearance: PRESENT: no acute distress, cooperative, disheveled, morbidly obese Respiratory exam: PRESENT: clear to auscultation clarisa, decreased breath sounds, symmetrical, unlabored. ABSENT: accessory muscle use, crackles, prolonged expiratory phas, retraction, rhonchi, tachypnea, wheezes Cardiovascular exam: PRESENT: RRR, +S1, +S2 Pulses: PRESENT: normal carotid pulses Vascular exam: PRESENT: normal capillary refill GI/Abdominal exam: PRESENT: normal bowel sounds, soft. ABSENT: distended, guarding, rebound, tenderness Extremities exam: ABSENT: clubbing, pedal edema Musculoskeletal exam: PRESENT: normal inspection. ABSENT: deformity Neurological exam: PRESENT: alert, awake, oriented to person, oriented to place, oriented to situation Psychiatric exam: PRESENT: appropriate affect, normal mood Skin exam: PRESENT: dry, warm Results Laboratory Results: 10/02/19 05:52 10/03/19 06:32 10/01/19 10/01/19 14:30 14:30 Troponin I < 0.012 NT-Pro-B Natriuret Pep 18 Impressions: Chest X-Ray 10/01/19 13:53 IMPRESSION: Right middle lobe pneumonia. Chest/Abdomen CTA 10/01/19 20:05 IMPRESSION: Examination is inadequate for evaluation of pulmonary embolus secondary to missed bolus of contrast No evidence aortic dissection Hepatosplenomegaly Areas of atelectasis in the lung bases bilaterally particularly in the right middle and lower lobe. Small amount of associated infiltrate cannot be entirely excluded Assessment and Plan - Diagnosis (1) Hyperglycemia due to type 2 diabetes mellitus Qualifiers: Diabetes mellitus oracle e business developer insulin use: with oracle e business developer use Qualified Code(s): E11.65 - Type 2 diabetes mellitus with hyperglycemia; Z79.4 - halfway (current) use of insulin Is this a current diagnosis for this admission?: Yes Plan: Glucoses remain elevated while on steroids. I have increased his Lantus. Hopefully we can get him off of prednisone fairly quickly. (2) Hypertensive urgency Is this a current diagnosis for this admission?: Yes Plan: On multiple medications, blood pressure has improved. We will continue to adjust regimen as necessary. (3) Morbid obesity with BMI of 50.0-59.9, adult Is this a current diagnosis for this admission?: Yes Plan: I have strongly encouraged lifestyle modification (4) RML pneumonia Qualifiers: Pneumonia type: due to unspecified organism Qualified Code(s): J18.9 - Pneumonia, unspecified organism Is this a current diagnosis for this admission?: Yes Plan: Continue Levaquin, cultures pending (5) Acute respiratory failure with hypoxia Is this a current diagnosis for this admission?: Yes Plan: I was considering repeating another CTA of the chest because he continues to be documented as having hypoxemia while on supplemental O2. However, as noted above, when I saw him in his room he was on room air and his SPO2 while he was seated up talking to me was 92 to 93%. Therefore, will hold off on repeating his imaging we will continue his current treatment. We will encourage him to ambulate. - Time Time Spent with patient: 15-24 minutes
[2019-10-04] MEDS ORDERED: INSULIN GLARGINE,HUM.REC.ANLOG 1,000 UNIT/10 ML VIAL (PYX) SUBCUT PRN (18:09)
[2019-10-05] MEDS: LEVALBUTEROL HCL NEB 1.25 MG/3 ML AMPUL NEB SCH ×3 (02:29→14:06)
[2019-10-05] MEDS ORDERED: HYDRALAZINE HCL 25 MG TABLET PO ONE (03:30)
[2019-10-05] MEDS: HEPARIN SOD (PORCINE) 5,000 UNIT/ML 1 ML VIAL SUBCUT SCH ×2 (05:05→13:25)
[2019-10-05] MEDS: INSULIN LISPRO 100 UNIT/ML 3 ML VIAL SUBCUT SCH ×4 (08:20→12:05)
[2019-10-05] MEDS: INSULIN GLARGINE,HUM.REC.ANLOG 1,000 UNIT/10 ML VIAL SUBCUT SCH (09:22)
[2019-10-05] MEDS: LISINOPRIL 10 MG TABLET PO SCH (09:22)
[2019-10-05] MEDS: AMLODIPINE BESYLATE 5 MG TABLET PO SCH (09:22)
[2019-10-05] MEDS: GUAIFENESIN 600 MG TABLET.SA PO SCH (09:22)
[2019-10-05] MEDS: PREDNISONE 20 MG TABLET PO SCH (09:22)
[2019-10-05] MEDS: FAMOTIDINE 20 MG TABLET PO SCH (09:23)
[2019-10-05 13:29] VITALS: BP 171/112
--- NOTE | 2019-10-05 18:25 | PDOC DISCHARGE SUMMARY ---
Impression - Admit/DC Date/PCP Admission Date/Primary Care Provider: 10/01/19 18:32 BROOKE REYES MD Discharge Date: 10/05/19 - Discharge Diagnosis (1) Hyperglycemia due to type 2 diabetes mellitus Is this a current diagnosis for this admission?: Yes (2) Hypertensive urgency Is this a current diagnosis for this admission?: Yes (3) Morbid obesity with BMI of 50.0-59.9, adult Is this a current diagnosis for this admission?: Yes (4) RML pneumonia Is this a current diagnosis for this admission?: Yes (5) Acute respiratory failure with hypoxia Is this a current diagnosis for this admission?: Yes - Additional Information Resuscitation Status: Full Code Discharge Diet: Diabetic Discharge Activity: Activity As Tolerated, Balance Activity w/Rest [facility] PIEDAD REYES MD [NO LOCAL MD] - 10/12/19 3:00 pm (1 week) Prescriptions: Prednisone [Deltasone 20 mg Tablet] 20 mg PO DAILY #5 tablet Chlorthalidone [Hygroton 25 mg Tablet] 25 mg PO DAILY #30 tablet Levofloxacin [Levaquin 750 mg Tablet] 750 mg PO QPM #3 tablet Amlodipine Besylate [Norvasc 10 mg Tablet] 10 mg PO DAILY #30 tablet Amlodipine Besylate [Norvasc 5 mg Tablet] 10 mg PO DAILY #30 tablet Home Medications: Insulin Glargine,Hum.rec.anlog [Lantus Insulin 100 Unit/mL Insulin Pen] 35 unit SUBCUT Q12 02/01/18 Lisinopril 20 mg PO DAILY #30 tablet 06/06/19 Amlodipine Besylate [Norvasc 10 mg Tablet] 10 mg PO DAILY #30 tablet 10/05/19 Amlodipine Besylate [Norvasc 5 mg Tablet] 10 mg PO DAILY #30 tablet 10/05/19 Chlorthalidone [Hygroton 25 mg Tablet] 25 mg PO DAILY #30 tablet 10/05/19 Levofloxacin [Levaquin 750 mg Tablet] 750 mg PO QPM #3 tablet 10/05/19 Prednisone [Deltasone 20 mg Tablet] 20 mg PO DAILY #5 tablet 10/05/19 History of Present Illiness History of Present Illness: KIRK CHARLES is a 29 year old male with morbid obesity, insulin-dependent diabetes mellitus and hypertension. He states that last evening he began to cough. He coughed up white sputum. There was no blood or discoloration. He then began to have chills with some disorientation. He had very little energy. He had difficulty sleeping and earlier today he felt so weak it was difficult to get out of bed and he proceeded to the emergency department. He does report that several siblings have viral illnesses currently. In the emergency department his chest x-ray was suggestive of pneumonia. Initial vital signs showed a blood pressure of 171/112 with a pulse of 112. Respiratory rate was 28 and his oxygen saturation was 91% on room air. This declined quickly. Over the course of his evaluation emergency department the oxygen demand kept increasing. Finally he was on 4 L nasal cannula with an oxygen saturation in the 88% to 90% range. He was given 125 mg of Solu-Medrol x1. He was given magnesium sulfate 1 g x 2 doses. He also received nebulizer treatment. CBC was normal. Chemistries revealed a potassium of 3.5 and a glucose of 263. Lactic acid was 2.5. 750 mg of levofloxacin was then ordered. He was referred to the hospitalist service for admission. Hospital Course Hospital Course: He was put empirically on antibiotics in case he has had a superimposed bacterial infection, but it was suspected that he probably had a viral infection as underlying etiology. He was still having a bad cough after a few days. The main thing that kept him in the hospital was hypoxemia. I had him on levels as high as 6 L on the nasal cannula and he was still showing SPO2 in the low 90s. Came into the room 1 day and saw him on room air and his pulse ox was 90 to 92%. He looks comfortable and so we left him off for a while he continued to stay in that range. He was sitting up in the bed and able to talk without getting short of breath and his pulse oximetry continued to stay in that range. He is being discharged home with a few more days of antibiotics and prednisone. His blood pressure was also substantially elevated and so we had to send him home on a new blood pressure medication. He was started on chlorthalidone in addition to the lisinopril that he was on. He also required a prescription for amlodipine. This helped keep his blood pressure under better control. Serious lifestyle changes were recommended. His labs and examination were reassuring and he was discharged in stable condition. Physical Exam Vital Signs: Temp Pulse Resp BP Pulse Ox 98.4 F 101 H 18 171/112 H 90 L 10/05/19 13:26 10/05/19 13:26 10/05/19 13:26 10/05/19 13:26 10/05/19 13:26 Pulse Oximeter Continuous Start: 10/01/19 19:34 Freq: RTQ4 Status: Discharge Protocol: Document 10/05/19 14:00 [facility] (Rec: 10/05/19 14:06 [facility] [email or web address]) Pulse Oximetry Assessment Equipment Usage Equipment Discontinued Continuous SpO2 Machine # 6 Intake & Output 10/04/19 10/05/19 10/06/19 06:59 06:59 06:59 Intake Total 1557 240 Output Total 1225 Balance 332 240 Weight 174 kg General appearance: PRESENT: no acute distress, cooperative, disheveled, morbidly obese Respiratory exam: PRESENT: clear to auscultation clarisa, decreased breath sounds, symmetrical, unlabored. ABSENT: accessory muscle use, crackles, prolonged expiratory phas, retraction, rhonchi, tachypnea, wheezes Cardiovascular exam: PRESENT: RRR, +S1, +S2 Pulses: PRESENT: normal carotid pulses Vascular exam: PRESENT: normal capillary refill GI/Abdominal exam: PRESENT: normal bowel sounds, soft. ABSENT: distended, guarding, rebound, tenderness Extremities exam: ABSENT: clubbing, pedal edema Musculoskeletal exam: PRESENT: normal inspection. ABSENT: deformity Neurological exam: PRESENT: alert, awake, oriented to person, oriented to place, oriented to situation Psychiatric exam: PRESENT: appropriate affect, normal mood Skin exam: PRESENT: dry, warm Results Laboratory Results: WBC 8.4 10^3/uL (4.0-10.5) 10/02/19 05:52 RBC 4.86 10^6/uL (4.35-5.55) 10/02/19 05:52 Hgb 14.1 g/dL (13.5-17.0) 10/02/19 05:52 Hct 40.4 % (37.9-51.0) 10/02/19 05:52 MCV 83 fl (80-97) 10/02/19 05:52 MCH 28.9 pg (27.0-33.4) 10/02/19 05:52 MCHC 34.8 g/dL (32.0-36.0) 10/02/19 05:52 RDW 13.2 % (11.5-14.0) 10/02/19 05:52 Plt Count 251 10^3/uL (150-450) 10/02/19 05:52 Lymph % (Auto) 9.8 % (13-45) L 10/02/19 05:52 [place] % (Auto) 4.2 % (3-13) 10/02/19 05:52 Eos % (Auto) 0.0 % (0-6) 10/02/19 05:52 Baso % (Auto) 0.4 % (0-2) 10/02/19 05:52 Absolute Neuts (auto) 7.1 10^3/uL (1.7-8.2) 10/02/19 05:52 Absolute Lymphs (auto) 0.8 10^3/uL (0.5-4.7) 10/02/19 05:52 Absolute Monos (auto) 0.4 10^3/uL (0.1-1.4) 10/02/19 05:52 Absolute Eos (auto) 0.0 10^3/uL (0.0-0.6) 10/02/19 05:52 Absolute Basos (auto) 0.0 10^3/uL (0.0-0.2) 10/02/19 05:52 Seg Neutrophils % 85.6 % (42-78) H 10/02/19 05:52 D-Dimer 0.27 ug/mL (0.00-0.50) 10/03/19 06:32 Carbonic Acid 1.17 mmol/L (1.05-1.35) 10/01/19 20:06 HCO3/H2CO3 Ratio 20:1 10/01/19 20:06 ABG pH 7.40 (7.35-7.45) 10/01/19 20:06 ABG pCO2 39.0 mmHg (35-45) 10/01/19 20:06 ABG pO2 36.6 mmHg (80-100) L* 10/01/19 20:06 ABG HCO3 23.7 mmol/L (20-24) 10/01/19 20:06 ABG Total CO2 24.9 mmol/L (23-27) 10/01/19 20:06 ABG O2 Saturation 70.2 % (94-98) L 10/01/19 20:06 ABG Base Excess -0.8 mmol/L 10/01/19 20:06 VBG pH 7.39 (7.30-7.42) 10/01/19 17:30 VBG pCO2 44.1 mmHg (35-63) 10/01/19 17:30 VBG HCO3 26.3 mmol/L (20-32) 10/01/19 17:30 VBG Base Excess 1.1 mmol/L 10/01/19 17:30 FiO2 4L 10/01/19 20:06 Sodium 135.5 mmol/L (137-145) L 10/03/19 06:32 Potassium 4.3 mmol/L (3.6-5.0) 10/03/19 06:32 Chloride 101 mmol/L (98-107) 10/03/19 06:32 Carbon Dioxide 25 mmol/L (22-30) 10/03/19 06:32 Anion Gap 10 (5-19) 10/03/19 06:32 BUN 10 mg/dL (7-20) 10/03/19 06:32 Creatinine 0.65 mg/dL (0.52-1.25) 10/03/19 06:32 Est GFR ( Amer) > 60 (>60) 10/03/19 06:32 Est GFR (MDRD) Non-Af > 60 (>60) 10/03/19 06:32 Glucose 386 mg/dL (75-110) H 10/03/19 06:32 POC Glucose 175 mg/dL (70-110) H 10/05/19 11:10 Hemoglobin A1c % 11.8 % (4.7-6.0) H 10/02/19 05:52 Lactic Acid 2.0 mmol/L (0.7-2.1) 10/02/19 16:14 Calcium 8.5 mg/dL (8.4-10.2) 10/03/19 06:32 Magnesium 2.0 mg/dL (1.6-2.3) 10/02/19 05:52 Total Bilirubin 0.6 mg/dL (0.2-1.3) 10/01/19 14:30 Direct Bilirubin 0.2 mg/dL (0.0-0.4) 10/01/19 14:30 Neonat Total Bilirubin Not Reportable 10/01/19 14:30 Neonat Direct Bilirubin Not Reportable 10/01/19 14:30 Neonat Indirect Bili Not Reportable 10/01/19 14:30 AST 28 U/L (17-59) 10/01/19 14:30 ALT 27 U/L (<50) 10/01/19 14:30 Alkaline Phosphatase 82 U/L (38-126) 10/01/19 14:30 Troponin I < 0.012 ng/mL 10/01/19 14:30 NT-Pro-B Natriuret Pep 18 pg/mL (<125) 10/01/19 14:30 Total Protein 6.7 g/dL (6.3-8.2) 10/01/19 14:30 Albumin 3.7 g/dL (3.5-5.0) 10/01/19 14:30 10/01/19 10/01/19 14:30 14:30 Troponin I < 0.012 NT-Pro-B Natriuret Pep 18 Impressions: Chest X-Ray 10/01/19 13:53 IMPRESSION: Right middle lobe pneumonia. Chest/Abdomen CTA 10/01/19 20:05 IMPRESSION: Examination is inadequate for evaluation of pulmonary embolus secondary to missed bolus of contrast No evidence aortic dissection Hepatosplenomegaly Areas of atelectasis in the lung bases bilaterally particularly in the right middle and lower lobe. Small amount of associated infiltrate cannot be entirely excluded Plan Time Spent: Greater than 30 Minutes Stroke Is this a Stroke Patient?: No Acute Heart Failure - Is this a Heart Failure Patient?: No
== END 2019-10-05 14:25 | disposition home or self-care (01) | DRG 193 ==
LOC: ER 13:33 → EH 18:32 → 3S 10-02 00:45
PROVIDERS: ADMIT Hospitalist; ATTEND Hospitalist
PROC: 5A09357 Assistance with Respiratory Ventilation, Less than 24 Consecutive Hours, Continuous Positive Airway Pressure (ICD-10-PCS; principal; 2019-10-05)
PROC: 3E02340 Introduction of Influenza Vaccine into Muscle, Percutaneous Approach (ICD-10-PCS; 2019-10-05)
DX: J18.9 Pneumonia, unspecified organism (principal); J96.01 Acute respiratory failure with hypoxia; Z68.43 Body mass index [BMI] 50.0-59.9, adult; J98.11 Atelectasis; J45.41 Moderate persistent asthma with (acute) exacerbation; J44.9 Chronic obstructive pulmonary disease, unspecified; I16.0 Hypertensive urgency; E11.65 Type 2 diabetes mellitus with hyperglycemia; E66.01 Morbid (severe) obesity due to excess calories; I10 Essential (primary) hypertension; E78.5 Hyperlipidemia, unspecified; G47.30 Sleep apnea, unspecified; F12.90 Cannabis use, unspecified, uncomplicated; E87.6 Hypokalemia; F17.210 Nicotine dependence, cigarettes, uncomplicated; R00.0 Tachycardia, unspecified; Z79.4 Long term (current) use of insulin; Z79.52 Long term (current) use of systemic steroids; Z87.01 Personal history of pneumonia (recurrent); Z88.1 Allergy status to other antibiotic agents; Z83.3 Family history of diabetes mellitus
CPT/HCPCS: 36415; 71046; 71275; 80048; 80053; 82803; 82962; 83036; 83605; 83735; 83880; 84484; 85025; 85379; 87040; 90686; 93005; 93010; 94640; 94660; 94667; 94668; 94762; 96365; 96375; 99285; J0360; J1644; J1815; J1956; J2060; J2930; J3475; J3490; J7030; J7060; J7512; J7620

== ENCOUNTER 2020-04-20 15:35 | Emergency (ER) | payer SELFPAY ==
[2020-04-20] MEDS ORDERED: IPRATROPIUM/ALBUTEROL 0.5-2.5 MG/3 ML AMPUL NEB ONE (15:58)
--- NOTE | 2020-04-20 16:32 | ER Document Report ---
Entered by LAURA WORKMAN SCRIBE 04/20/20 1558 Acting as scribe for:ELFEGO MCDONNELL MD ED Respiratory Problem - General Mode of Arrival: Ambulatory Information source: Patient TRAVEL OUTSIDE OF THE [place] IN LAST 30 DAYS: No - Related Data Home Medications: lantus <ELFEGO MCDONNELL - Last Filed: 04/20/20 19:08> <DORA CORTÉS - Last Filed: 04/20/20 19:15> - General Chief Complaint: Shortness Of Breath Stated Complaint: COUGH/SHORTNESS OF BREATH Time Seen by Provider: 04/20/20 15:43 Primary Care Provider: BROOKE ROJO MD [Primary Care Provider] - Follow up as needed Notes: This 29 year old male patient with a history significant for asthma, pneumonia, COPD, and continued tobacco use presents to the ED today with complaints of shortness of breath with associated nonproductive cough for the past x2-3 days. Patient states that he has been using his inhaler with relief for the past couple of days and that he has an appointment with his PCP Dr. Rojo next week, but he couldn't wait that long, so he decided to come to the ED for evaluation. He mentions pain behind his eyeballs every time he coughs. Denies fever or known COVID exposure. 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 (ELFEGO MCDONNELL) - Related Data Allergies/Adverse Reactions: ceftriaxone [From Rocephin] Adverse Reaction (Verified 04/20/20 15:52) VOMITING Past Medical History - General Information source: Patient, [facility] Records - Social History Smoking Status: Current Every Day Smoker Cigarette use (# per day): Yes - 1 ppd Smoking Education Provided: No Frequency of alcohol use: Occasional Drug Abuse: None Family History: Reviewed & Not Pertinent, DM Patient has suicidal ideation: No Patient has homicidal ideation: No - Past Medical History Cardiac Medical History: Reports: Hx Hypercholesterolemia, Hx Hypertension Pulmonary Medical History: Reports: Hx Asthma, Hx Bronchitis, Hx COPD, Hx Pneumonia, Hx Sleep Apnea Endocrine Medical History: Reports: Hx Diabetes Mellitus Type 2 Musculoskeletal Medical History: Reports Hx Musculoskeletal Trauma Traumatic Medical History: Reports: Hx Fractures - Boxers Past Surgical History: Reports: Hx Adenoidectomy, Hx Orthopedic Surgery - right hand, Hx Tonsillectomy - Immunizations Hx Diphtheria, Pertussis, Tetanus Vaccination: Yes Hx Pneumococcal Vaccination: 07/06/14 <ELFEGO MCDONNELL - Last Filed: 04/20/20 19:08> Review of Systems - Review of Systems Constitutional: See HPI. denies: Fever EENT: See HPI, Eye pain Cardiovascular: No symptoms reported Respiratory: See HPI, Cough, Short of breath. denies: Sputum Gastrointestinal: No symptoms reported Genitourinary: No symptoms reported Male Genitourinary: No symptoms reported Musculoskeletal: No symptoms reported Skin: No symptoms reported Hematologic/Lymphatic: No symptoms reported Neurological/Psychological: No symptoms reported -: Yes All other systems reviewed and negative <ELFEGO MCDONNELL - Last Filed: 04/20/20 19:08> Physical Exam - General General appearance: Alert In distress: None - HEENT Head: Normocephalic, Atraumatic Eyes: Normal Pupils: PERRL - Cardiovascular Rhythm: Regular, Tachycardia Heart sounds: Normal auscultation Murmur: No Friction rub: No Gallop: None auscultated - Abdominal Inspection: Morbidly Obese Distension: No distension Bowel sounds: Normal Tenderness: Nontender - Abdomen soft Organomegaly: No organomegaly - Back Back: Normal, Nontender - Extremities General upper extremity: Normal inspection General lower extremity: Normal inspection. No: Edema - Neurological Neuro grossly intact: Yes Orientation: AAOx4 [place] Coma Scale Eye Opening: Spontaneous [place] Coma Scale Verbal: Oriented [place] Coma Scale Motor: Obeys Commands [place] Coma Scale Total: 15 - Psychological Associated symptoms: Normal affect, Normal mood - Skin Skin Temperature: Warm Skin Moisture: Dry Skin Color: Normal <ELFEGO MCDONNELL - Last Filed: 04/20/20 19:08> - Vital signs Vitals: Temp Pulse Resp BP Pulse Ox 98.4 F 113 H 24 H 151/89 H 95 04/20/20 15:43 04/20/20 15:43 04/20/20 15:43 04/20/20 15:43 04/20/20 15:43 - Respiratory Notes: Diffuse inspiratory and expiratory wheezing and rhonchi. Tachypneic. (ELFEGO MCDONNELL) Course - Laboratory Result Diagrams: 04/20/20 16:46 04/20/20 16:46 - Diagnostic Test Radiology reviewed: Image reviewed, Reports reviewed - Portable chest x-ray shows focal asymmetric opacity overlying the anterior fourth rib which is most likely focal airspace disease. Atelectasis was demonstrated in this region on prior CT of the chest. It possibly represents scar. <ELFEGO MCDONNELL - Last Filed: 04/20/20 19:08> - Laboratory Result Diagrams: 04/20/20 16:46 04/20/20 16:46 <DORA CORTÉS - Last Filed: 04/20/20 19:15> - Re-evaluation Re-evalutation: 04/20/20 18:58 Patient's lungs are almost clear. He states he feels much better. He states he has a nebulizer at home and has been using someone else's medication but that medication did not work nearly as well. I suspect he is using albuterol and we started his treatments with albuterol and Atrovent. He will be prescribed albuterol ampules and Atrovent ampules to use at home in the breathing machine. 04/20/20 19:01 The patient was evaluated during the global COVID-19 pandemic and that diagnosis was suspected/considered upon their initial presentation. Their evaluation, treatment and testing was consistent with current guidelines for patients who present with complaints or symptoms that may be related to COVID-19. (ELFEGO MCDONNELL) - Vital Signs Vital signs: Temp Pulse Resp BP Pulse Ox 98.4 F 113 H 24 H 151/89 H 95 04/20/20 15:43 04/20/20 15:43 04/20/20 15:43 04/20/20 15:43 04/20/20 15:43 - Laboratory Laboratory results interpreted by me: 04/20/20 04/20/20 16:46 16:46 Glucose 315 H Hemoglobin A1c % 10.8 H Total Protein 6.2 L Discharge <ELFEGO MCDONNELL - Last Filed: 04/20/20 19:08> <DORA CORTÉS - Last Filed: 04/20/20 19:15> - Discharge Clinical Impression: Poorly controlled diabetes mellitus, Elevated blood pressure reading Asthmatic bronchitis with acute exacerbation Qualifiers: Asthma severity: unspecified severity Asthma persistence: unspecified Qualified Code(s): J45.901 - Unspecified asthma with (acute) exacerbation Condition: Stable Disposition: HOME, SELF-CARE Instructions: COVID-19 Guidance for Persons Under Investigation Additional Instructions: Bronchitis with Bronchospasm (Wheezing) You have bronchitis with bronchospasm (wheezing). Sometimes people develop wheezing with a chest cold. This occurs either because of an underlying tendency toward asthma or because the virus itself irritates the bronchial tubes. This irritation causes cough, shortness of breath, and wheezing. Emergency treatment of bronchospasm may include adrenaline shots or bronchodilator aerosol. You may feel lightheaded and have a rapid pulse for an hour or two. Rest and get plenty of fluids. At home, we'll treat you with a bronchodilator inhaler. Corticosteroids may be required for some patients. Until you recover, avoid chemical fumes, dusts, pollens, and exercising in very cold or dry air. If you smoke, stop now! Most cases of bronchitis get better without antibiotics. We prescribe antibiotics when we believe bacteria are damaging your airways, or if there's high risk the bronchitis will worsen into pneumonia. Increase your fluid intake. A cool mist humidifier may make your lungs more comfortable. An expectorant (cough medicine that loosens phlegm) can help. Repeated episodes of bronchitis and bronchospasm may result in lung damage -- for example, chronic bronchitis, recurrent pneumonias, or emphysema. If you develop a fever, increased wheezing, chest pain, or severe shortness of breath, you should contact the doctor immediately. Use the albuterol and your nebulizer every 2-4 hours as needed for wheezing. If you are using your albuterol frequently, then you add the ipratropium bromide/Atrovent to the albuterol every 4 hours. Drink plenty of fluids today. Your blood sugars were quite high today, and checking a hemoglobin A1c it appears your sugars run above 300 most of the time. You should check your sugars regularly and try to reduce your calorie and take, eliminate all sweets, and try to exercise more and lose weight. Your blood pressure was elevated when you came in today. Be sure you check your blood pressure at least every day and if it remains elevated you should see your doctor about increasing your medications. You should self isolate at home until you get the results of the COVID test ba ck. Follow-up with your primary care provider to discuss better management of your blood sugars, your asthma, and your high blood pressure. RETURN TO THE EMERGENCY ROOM IF ANY NEW OR WORSENING SYMPTOMS. Prescriptions: Ipratropium [place] [Atrovent 0.02% Neb 0.5 mg/2.5 ml Ampul] 0.5 mg NEB ASDIR PRN #30 vial.neb PRN Reason: Albuterol Sulfate [Ventolin 0.083% Neb 2.5 mg/3 mL Ampul] 1 vial NEB ASDIR PRN #50 vial PRN Reason: Forms: Return to Work Referrals: BROOKE ROJO MD [Primary Care Provider] - Follow up as needed I personally performed the services described in the documentation, reviewed and edited the documentation which was dictated to the scribe in my presence, and it accurately records my words and actions.
--- NOTE | 2020-04-20 16:44 | RADIOLOGY REPORT (SQ) ---
EXAM DESCRIPTION: CHEST SINGLE VIEW IMAGES COMPLETED DATE/TIME: 04/20/2020 4:28 pm REASON FOR STUDY: Cough, wheezing, short of breath COMPARISON: 10/01/2019 EXAM PARAMETERS: NUMBER OF VIEWS: One view. TECHNIQUE: Single frontal radiographic view of the chest acquired. RADIATION DOSE: NA LIMITATIONS: None. FINDINGS: LUNGS AND PLEURA: Focal asymmetric opacity overlying the anterior 4th rib. Most likely fo viki airspace disease. Atelectasis was demonstrated in this region on prior CT chest. It possibly re presents scar. Lung roche are otherwise clear. No pneumothorax. MEDIASTINUM AND HILAR STRUCTURES: No masses. Contour normal. HEART AND VASCULAR STRUCTURES: Heart normal in size. Normal vasculature. BONES: No acute findings. HARDWARE: None in the chest. OTHER: No other significant finding. IMPRESSION: Focal asymmetric opacity in the left upper lobe as described. Most likely atelectasis o r scar. TECHNICAL DOCUMENTATION: JOB ID: [id number] 2010 [employer]- All Rights Reserved Reading location - IP/workstation name: [email or web address]
[2020-04-20 17:00] LABS: ABSOLUTE BASOPHILS # (AUTO) 0.1 10^3/uL (0.0-0.2); ABSOLUTE EOSINOPHILS # (AUTO) 0.2 10^3/uL (0.0-0.6); ABSOLUTE LYMPHOCYTES (AUTO) 2.6 10^3/uL (0.5-4.7); ABSOLUTE MONOCYTES (AUTO) 0.5 10^3/uL (0.1-1.4); ABSOLUTE NEUT (AUTO) 5.8 10^3/uL (1.7-8.2); BASOPHILS % (AUTO) 1.1 % (0-2); EOSINOPHILS % (AUTO) 2.3 % (0-6); HEMATOCRIT 42.1 % (37.9-51.0); HEMOGLOBIN 14.3 g/dL (13.5-17.0); LYMPHOCYTES % (AUTO) 28.3 % (13-45); MEAN CORPUSCULAR HEMOGLOBIN 28.4 pg (27.0-33.4); MEAN CORPUSCULAR HGB CONC 33.9 g/dL (32.0-36.0); MEAN CORPUSCULAR VOLUME 84 fl (80-97); MONOCYTES % (AUTO) 5.9 % (3-13); PLATELET COUNT 260 10^3/uL (150-450); RED BLOOD COUNT 5.02 10^6/uL (4.35-5.55); RED CELL DISTRIBUTION WIDTH 12.4 % (11.5-14.0); SEGMENTED NEUTROPHILS % (AUTO) 62.4 % (42-78); TOTAL CELLS COUNTED % (AUTO) 100 %; WHITE BLOOD COUNT 9.3 10^3/uL (4.0-10.5)
[2020-04-20] MEDS ORDERED: ALBUTEROL SULFATE 0.083% NEB 2.5 MG/3 ML AMPUL NEB ONE ×2 (17:09→17:49)
[2020-04-20 17:21] LABS: ALBUMIN 3.5 g/dL (3.5-5.0); ALKALINE PHOSPHATASE 104 U/L (38-126); ANION GAP 7 (5-19); ASPARTATE AMINO TRANSFERASE 31 U/L (17-59); BILIRUBIN,DIRECT 0.3 mg/dL (0.0-0.4); BILIRUBIN,TOTAL 0.4 mg/dL (0.2-1.3); BLOOD UREA NITROGEN 8 mg/dL (7-20); CALCIUM 8.8 mg/dL (8.4-10.2); CARBON DIOXIDE 23 mmol/L (22-30); CHLORIDE 107 mmol/L (98-107); GLUCOSE 315 mg/dL (75-110); POTASSIUM 4.2 mmol/L (3.6-5.0); TOTAL PROTEIN 6.2 g/dL (6.3-8.2)
[2020-04-20 19:35] VITALS: BP 146/87
== END 2020-04-20 19:35 | disposition home or self-care (01) ==
LOC: ER 15:35
DX: J45.901 Unspecified asthma with (acute) exacerbation (principal); E11.9 Type 2 diabetes mellitus without complications; R03.0 Elevated blood-pressure reading, without diagnosis of hypertension; F17.210 Nicotine dependence, cigarettes, uncomplicated; Z20.828 Contact with and (suspected) exposure to other viral communicable diseases; Z79.84 Long term (current) use of oral hypoglycemic drugs
CPT/HCPCS: 94640 ×2; 99285; 36415; 85025; 87635; 80053; 83036; 71045; J7613; C9803

== ENCOUNTER → 2020-06-08 | Outpatient (CLI) | payer OTHER ==
[2020-06-08 11:19] LABS: ABSOLUTE BASOPHILS # (AUTO) 0.1 10^3/uL (0.0-0.2); ABSOLUTE EOSINOPHILS # (AUTO) 0.1 10^3/uL (0.0-0.6); ABSOLUTE LYMPHOCYTES (AUTO) 2.4 10^3/uL (0.5-4.7); ABSOLUTE MONOCYTES (AUTO) 0.4 10^3/uL (0.1-1.4); ABSOLUTE NEUT (AUTO) 4.2 10^3/uL (1.7-8.2); BASOPHILS % (AUTO) 1.8 % (0-2); EOSINOPHILS % (AUTO) 1.3 % (0-6); HEMATOCRIT 42.6 % (37.9-51.0); HEMOGLOBIN 14.6 g/dL (13.5-17.0); LYMPHOCYTES % (AUTO) 32.7 % (13-45); MEAN CORPUSCULAR HEMOGLOBIN 28.7 pg (27.0-33.4); MEAN CORPUSCULAR HGB CONC 34.2 g/dL (32.0-36.0); MEAN CORPUSCULAR VOLUME 84 fl (80-97); MONOCYTES % (AUTO) 5.9 % (3-13); PLATELET COUNT 245 10^3/uL (150-450); RED BLOOD COUNT 5.07 10^6/uL (4.35-5.55); RED CELL DISTRIBUTION WIDTH 12.9 % (11.5-14.0); SEGMENTED NEUTROPHILS % (AUTO) 58.3 % (42-78); TOTAL CELLS COUNTED % (AUTO) 100 %; WHITE BLOOD COUNT 7.2 10^3/uL (4.0-10.5)
[2020-06-08 11:41] LABS: ALBUMIN 3.5 g/dL (3.5-5.0); ALKALINE PHOSPHATASE 91 U/L (38-126); ANION GAP 8 (5-19); ASPARTATE AMINO TRANSFERASE 26 U/L (17-59); BILIRUBIN,DIRECT 0.1 mg/dL (0.0-0.4); BILIRUBIN,TOTAL 0.5 mg/dL (0.2-1.3); BLOOD UREA NITROGEN 6 mg/dL (7-20); CARBON DIOXIDE 26 mmol/L (22-30); CHLORIDE 104 mmol/L (98-107); CHOLESTEROL 194.24 mg/dL (0-200); GLUCOSE 146 mg/dL (75-110); TOTAL PROTEIN 6.1 g/dL (6.3-8.2); TRIGLYCERIDES 89 mg/dL (<150)
[2020-06-08 11:52] LABS: DIRECT LDL 168 mg/dL (<100)
--- NOTE | 2020-06-08 12:58 | RADIOLOGY REPORT (SQ) ---
EXAM DESCRIPTION: CHEST PA/LATERAL IMAGES COMPLETED DATE/TIME: 06/08/2020 10:53 am REASON FOR STUDY: ATELECTASIS COMPARISON: 04/20/2020 EXAM PARAMETERS: NUMBER OF VIEWS: two views TECHNIQUE: Digital Frontal and Lateral radiographic views of the chest acquired. RADIATION DOSE: NA LIMITATIONS: none FINDINGS: LUNGS AND PLEURA: No opacities, masses or pneumothorax. No pleural effusion. MEDIASTINUM AND HILAR STRUCTURES: No masses or contour abnormalities. HEART AND VASCULAR STRUCTURES: Heart normal size. No evidence for failure. BONES: No acute findings. HARDWARE: None in the chest. OTHER: No other significant finding. IMPRESSION: NO SIGNIFICANT RADIOGRAPHIC FINDING IN THE CHEST. TECHNICAL DOCUMENTATION: JOB ID: [id number] 2010 [employer]- All Rights Reserved Reading location - IP/workstation name: [email or web address]
== END ==
LOC: CCC 10:29
PROVIDERS: ATTEND Family Medicine
DX: J98.11 Atelectasis (principal); E11.9 Type 2 diabetes mellitus without complications; I10 Essential (primary) hypertension; R04.2 Hemoptysis; F17.210 Nicotine dependence, cigarettes, uncomplicated
CPT/HCPCS: 36415; 71046; 80053; 80061; 84443; 84550; 85025